=== PATIENT | female | born 1985 | race Caucasian/White ===

== ENCOUNTER → 2016-08-14 | Outpatient (CLI) | payer MEDICAID, OTHER ==
[~2016-08-14] VITALS: Ht 157.5 cm; Wt 58.1 kg
[~2016-08-14] MED LIST: CYAN10005 PO; ERGO500012 PO; FAMO10VI IV; FERR325T58 PO; GELATIN SPONGE SIZE 12-7MM SPONGE. ONE; HEPARIN PF 500 UNIT/5 ML DISP.SYRIN. IV ONE; HYDROmorphone 2 MG/ML VIAL IV PRN; IOHEXOL 300 MG/ML 50 ML VIAL. ONE; IV RINGERS,LACTATED 1000ML 1,000 ML IV SCH; KETAMINE HCL 500 MG/10 ML VIAL. ONE; LAMO100T5 PO; LIDOCAINE 1% 1 ML SYRINGE. ID PRN; LIDOCAINE 1%/EPI 1:100,000 20 ML VIAL. INJ ONE; LIDOCAINE 1%/EPI 1:100,000 20 ML VIAL. ONE; LOPE2TAB27 PO; MIDAZOLAM HCL/PF 2 MG/2 ML VIAL. ONE; MORPHINE SULFATE 2 MG/ML DISP.SYRIN. IV PRN; ONDANSETRON PF 4 MG/2 ML VIAL. IV PRN; OXYC30TA21 PO; POTA20TA12 PO; PROCHLORPERAZINE 10 MG/2 ML VIAL. IV PRN; PROPOFOL 100 ML IV ONE; fentaNYL PF VIAL 100 MCG/2 ML VIAL ONE
[2016-08-14 11:27] LABS: INR 1.2 (0.8-1.1); PROTHROMBIN TIME PATIENT 14.3 SEC (11.7-14.0)
[2016-08-14 11:32] VITALS: BP 138/93
[2016-08-14 11:34] LABS: BASO % 0 % (0-3); EOS % 2 % (0-3); HEMATOCRIT 37.2 % (36.0-47.0); HEMOGLOBIN 12.5 g/dL (12.0-15.5); LYMPH # 2.3 x10^3/uL (1.0-4.8); LYMPH % 30 % (24-48); MEAN CORPUSCULAR HEMOGLOBIN 31 pg (25-35); MEAN CORPUSCULAR HGB CONC 34 g/dL (31-37); MEAN CORPUSCULAR VOLUME 92 fL (79-100); MONO % 9 % (0-9); NEUT % 59 % (31-73); RED BLOOD COUNT 4.04 x10^6/uL (3.50-5.40); RED CELL DISTRIBUTION WIDTH 13.6 % (11.5-14.5); WHITE BLOOD COUNT 7.7 x10^3/uL (4.0-11.0)
[2016-08-14 11:46] LABS: PLATELET COUNT 124 x10^3/uL (140-400)
--- NOTE | 2016-08-14 13:23 | PDOC1 ---
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 Her indwelling 6F Slim Power Port (placed August of last year) is no longer functioning. Port replacement has been requested. Since she has gained weight, placement of a standard 8F Power Port will be performed. Past Medical History Past Medical History See extensive Nursing Pre Procedure PMH Past Surgical History Past Surgical History See Nursing Pre Procedure PSH. Current Medications Current Medications Current Medications Iohexol (Omnipaque 300 Mg/ml) 50 ml STK-MED ONCE .ROUTE ; Start 08/14/16 at 10:05 ; Stop 08/14/16 at 10:06; Status DC Ondansetron HCl (Zofran) 4 mg PRN Q6HRS PRN IV NAUSEA/VOMITING; Start 08/14/16 at 10:45; Stop 08/15/16 at 10:44 Morphine Sulfate 1 mg PRN Q10MIN PRN IV SEVERE PAIN; Start 08/14/16 at 10:45; Stop 08/15/16 at 10:44 Ringer's Solution 1,000 ml @ 0 mls/hr Q0M IV ; Start 08/14/16 at 10:37; Stop 08/14/16 at 22:36 Lidocaine HCl 2 ml PRN 1X PRN ID PRIOR TO IV START; Start 08/14/16 at 10:45; Stop 08/15/16 at 10:44 Hydromorphone HCl (Dilaudid) 0.5 mg PRN Q10MIN PRN IV SEV PAIN, Second choice; Start 08/14/16 at 10:45; Stop 08/15/16 at 10:44 Prochlorperazine Edisylate (Compazine) 5 mg PACU PRN PRN IV NAUSEA, MRX1; Start 08/14/16 at 10:45; Stop 08/15/16 at 10:44 Lidocaine/ Epinephrine (Xylocaine 1%-Epi 1:100,000) 20 ml STK-MED ONCE .ROUTE ; Start 08/14/16 at 11:18; Stop 08/14/16 at 11:19; Status DC Heparin Sodium/ Sodium Chloride 500 ml @ As Directed STK-MED ONCE .ROUTE ; Start 08/14/16 at 11:18; Stop 08/14/16 at 11:19; Status DC Heparin Sodium (Porcine) (Hep Lock Adult) 500 unit STK-MED ONCE IV ; Start at 11:20; Stop 08/14/16 at 11:21; Status DC Heparin Sodium/ Sodium Chloride 1,000 unit 1X ONCE IART ; Start 08/14/16 at 12: 30; Stop 08/14/16 at 12:31; Status DC Lidocaine/ Epinephrine (Xylocaine 1%-Epi 1:100,000) 20 ml 1X ONCE INJ ; Start 08/14/16 at 12:30; Stop 08/14/16 at 12:31; Status DC Heparin Sodium (Porcine) (Hep Lock Adult) 500 unit 1X ONCE IV ; Start 08/14/16 at 12:30; Stop 08/14/16 at 12:31; Status DC Cefazolin Sodium 50 ml @ 100 mls/hr 1X ONCE IV ; Start 08/14/16 at 12:30; Stop 08/14/16 at 12:59; Status DC Midazolam HCl (Versed) 2 mg STK-MED ONCE .ROUTE ; Start 08/14/16 at 13:09; Stop 08/14/16 at 13:10; Status DC Fentanyl Citrate (Fentanyl 2ml Vial) 100 mcg STK-MED ONCE .ROUTE ; Start at 13:09; Stop 08/14/16 at 13:10; Status DC Ketamine HCl 500 mg STK-MED ONCE .ROUTE ; Start 08/14/16 at 13:09; Stop 08/14/16 at 13:10; Status DC Active Scripts Active Reported Lamictal (Lamotrigine) 100 Mg Tablet 1 Tab PO DAILY Famotidine 10 Mg/1 Ml Vial 4 Mg IV DAILY Loperamide (Loperamide Hcl) 2 Mg Tablet 4 Mg PO TID PRN PRN Roxicodone (Oxycodone Hcl) 30 Mg Tablet 15 Mg PO Q6HRS Allergies Allergies: Coded Allergies: adhesive (Verified Allergy, Intermediate, Rash, 01/27/14) amphetamine (Verified Allergy, Intermediate, hallucinations, 01/27/14) dextroamphetamine (Verified Allergy, Intermediate, hallucinations, ) lorazepam (Verified Allergy, Intermediate, hallucinations, 01/27/14) meperidine (Verified Allergy, Intermediate, "violent rages", 01/27/14) vancomycin (Verified Allergy, Intermediate, "raynauds", 01/27/14) Physical Exam Vital Signs Vital Signs Date Time Temp Pulse Resp B/P (MAP) Pulse Ox O2 Delivery O2 Flow Rate FiO2 08/14/16 11:32 98.6 76 16 138/93 (108) 96 98.6 Lungs: Clear to auscultation Heart: Regular rate Psych/Mental Status: Mental status NL Other Rt IJ Slim Power Port is in place---no evidence of pocket or tunnel infection. 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 Problems: Plan Plan Image guided replacement of rt IJ 6F Slim Power Port with larger 8F left IJ Power Port-----with MAC by anesthesia ADRIENNE ROQUE MD Aug 14, 2016 13:23
--- NOTE | 2016-08-14 15:04 | PDOC ---
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 Her indwelling right IJ Slim Power Port is nonfunctioning. Post-Procedure Diagnosis Post-Procedure Diagnosis Same Procedure Performed Procedure Performed Sono/fluoro guided left IJ tunneled Power Port insertion. Removal of right IJ tunneled Slim Power Port. Type of Anesthesia Type of Anesthesia MAC by anesthesia Estimated Blood Loss EBL: Minimal Specimens Specimans Right IJ 6F tunneled Slim Power Port---removed and discarded Drain/Tubes Drains/Tubes Left IJ 8F tunneled Power Port Condition of Patient Condition of Patient Hemodynamically stable. No apparent complication. Disposition Disposition From IR to PACU in stable condition. Discharge home from PACU post recovery, if no problems. F/U with PCP. OK to use new left IJ Power Port for blood draws and infusions, including TPN. Full report to follow. ADRIENNE ROQUE MD Aug 14, 2016 15:04
[2016-08-14] MEDS: fentaNYL PF VIAL 100 MCG/2 ML VIAL IV PRN ×2 (15:30→15:39)
[2016-08-14 16:05] VITALS: BP 124/74
--- NOTE | 2016-08-14 16:37 | RAD ---
Ultrasound and fluoroscopy guided left IJ power port insertion Removal of right IJ slim power port Indication: 31-year-old female with TPN dependent short-bowel syndrome. Her indwelling right IJ 6 Gren[place] Slim power port is nonfunctioning. Replacement of the slim power port with a larger 8 [place] standard power port has been requested. Fluoroscopy time: 1.3 minutes Kerma-area product: 6 Gycm2 Anesthesia: Mac anesthesia was provided by the department of anesthesiology. Antibiotic: A single dose of Ancef was administered within 1 hour of the procedure start time. Consent: The procedure was explained in its entirety to the patient and/or the patient's designated insurance service representative by a member of the treatment team. This included a discussion of risks and benefits and commonly accepted alternatives to the procedure, as well as expected consequences of no treatment at all. Discussion of risks included, but was not limited to, those that are most frequent and those that are rare, but possibly severe or life-threatening, as well as the possibility of unforeseen complications. Sterility: All elements of maximal sterile barrier technique, hand hygiene, skin preparation, and, if ultrasound was used, sterile ultrasound technique were followed. Procedure: Informed consent for insertion of a left IJ 8 Gren[place] tunneled power port and removal of her indwelling, nonfunctioning right IJ 6 [place] Slim power port was obtained from the patient. She was placed supine on the angiography table. 1 g Ancef was given IV, prophylactically. Mac anesthesia was provided by the department of anesthesiology. Power Port insertion : Preliminary ultrasound examination performed over left neck revealed wide patency of left internal jugular vein. This was documented with a single hard copy ultrasound image. Left neck was then prepped and draped in the usual sterile fashion, utilizing all elements of maximal sterile barrier technique, as described above. Using aseptic technique and local anesthesia, a small skin incision was made lateral to left internal jugular vein, just above clavicle. Using aseptic technique, local anesthesia, direct sterile ultrasound guidance, and the micropuncture system, successful percutaneous entry was achieved into left internal jugular vein. The left IJ venostomy tract was then dilated and the 8 [place] catheter from a Bard power port system was easily advanced centrally through an 8.5 Grenadian peel-away sheath, and was positioned with this tip at the level of upper-mid right atrium utilizing fluoroscopic guidance. A skin site suitable for placement of the power port body was then selected and marked along upper anterior aspect of left chest, overlying anterior aspect of left second rib. Using aseptic technique and local anesthesia, a horizontally oriented skin incision was made in this location. A subcutaneous chest wall pocket was then created and was packed with heparinized saline soaked gauze. A subcutaneous tunnel was then fashioned between the chest wall pocket and the initial supraclavicular incision. The 8 [place] power port catheter was then pulled through the subcutaneous tunnel from superior to inferior, utilizing the tunneling device provided. The catheter was then trimmed to an appropriate length and was connected to the power port body, which had been previously flushed with, and soaked in, heparinized saline solution. The gauze packing was then removed from the chest wall pocket, which was then copiously irrigated with heparinized saline solution. The power port body was then easily introduced into the chest wall pocket and was secured in place utilizing two 2-0 Vicryl sutures. The power port was then accessed utilizing a Swanson needle, was documented to flush and aspirate normally, and was packed with heparinized saline. The chest incision was then closed with 2-0 Vicryl, 4-0 Vicryl, Steri-Strips, and sterile dressing. The small supraclavicular incision was closed with 4-0 Vicryl, Steri-Strips, and sterile dressing. Patient tolerated the procedure well without apparent complication. Slim Power Port removal: Following successful, uneventful insertion of a left IJ tunneled power port, attention was turned to right side. Right chest was prepped and draped in the usual sterile fashion, utilizing all elements of maximal sterile barrier technique, as described above. Using aseptic technique and local anesthesia, a small horizontally oriented skin incision was made overlying body of the indwelling Slim Power Port. Subsequently, using a combination of blunt and sharp dissection, the Slim Power Port body was freed from surrounding soft tissues. The port body and catheter were then easily removed as a single unit, using gentle traction. The port body and catheter were then discarded. Hemostasis was achieved using manual pressure over right internal jugular vein. The chest incision was then closed with 2-0 Vicryl, 4-0 Vicryl, steri-strips, and sterile dressing. Patient tolerated procedure well without apparent complication. Satisfactory position of the left IJ power port and complete removal of the right IJ slim power port was confirmed with postprocedure fluoroscopic spot images. Impression: 1. Successful, uneventful ultrasound and fluoroscopy guided insertion of left IJ 8 Grenadian tunneled power port, as described. 2. Successful, uneventful removal of right IJ 6 Gren[place] Slim tunneled power port, as described.
== END | disposition home or self-care (01) ==
LOC: INTRAD 09:53
PROVIDERS: ATTEND Family Medicine
DX: T82.598A Other mechanical complication of other cardiac and vascular devices and implants, initial encounter (principal); I82.409 Acute embolism and thrombosis of unspecified deep veins of unspecified lower extremity; K21.9 Gastro-esophageal reflux disease without esophagitis; F41.9 Anxiety disorder, unspecified; F32.9 Major depressive disorder, single episode, unspecified; D64.9 Anemia, unspecified; Z87.01 Personal history of pneumonia (recurrent); Z90.49 Acquired absence of other specified parts of digestive tract; Z90.710 Acquired absence of both cervix and uterus; Z87.440 Personal history of urinary (tract) infections; Z86.14 Personal history of Methicillin resistant Staphylococcus aureus infection
CPT/HCPCS: 36415; 36561; 36590; 76937; 77001; 85027; 85610; C1751; C1892; J0690; J0780; J2250; J2704; J3010; J3490

== ENCOUNTER 2017-10-12 14:31 | Emergency (ER) | payer OTHER ==
[2017-10-12] MEDS: MORPHINE SULFATE 10 MG/ML VIAL. IM ×2 (15:13→16:01)
== END 2017-10-12 16:31 | disposition home or self-care (01) ==
LOC: ER 14:31
DX: S99.191A Other physeal fracture of right metatarsal, initial encounter for closed fracture (principal); G89.29 Other chronic pain; Z88.1 Allergy status to other antibiotic agents; Z88.6 Allergy status to analgesic agent; Z88.8 Allergy status to other drugs, medicaments and biological substances; W18.39XA Other fall on same level, initial encounter; Y93.01 Activity, walking, marching and hiking; Y99.8 Other external cause status; Y92.89 Other specified places as the place of occurrence of the external cause
CPT/HCPCS: 73610; 73630; 96372; 99284-25; J2270

== ENCOUNTER 2018-11-19 20:06 | Inpatient (IN) | payer OTHER ==
[~2018-11-19] VITALS: Ht 157.5 cm; Wt 50.2 kg
[~2018-11-19 20:06] MED LIST changes: +AMOX875T PO; +CYAN-25 PO; -CYAN10005 PO; -ERGO500012 PO; +ERGO500027 PO; -GELATIN SPONGE SIZE 12-7MM SPONGE. ONE; -HEPARIN PF 500 UNIT/5 ML DISP.SYRIN. IV ONE; -HYDROmorphone 2 MG/ML VIAL IV PRN; -IOHEXOL 300 MG/ML 50 ML VIAL. ONE; -IV RINGERS,LACTATED 1000ML 1,000 ML IV SCH; -KETAMINE HCL 500 MG/10 ML VIAL. ONE; -LIDOCAINE 1% 1 ML SYRINGE. ID PRN; -LIDOCAINE 1%/EPI 1:100,000 20 ML VIAL. INJ ONE; -LIDOCAINE 1%/EPI 1:100,000 20 ML VIAL. ONE; -MIDAZOLAM HCL/PF 2 MG/2 ML VIAL. ONE; -MORPHINE SULFATE 2 MG/ML DISP.SYRIN. IV PRN; -ONDANSETRON PF 4 MG/2 ML VIAL. IV PRN; -PROCHLORPERAZINE 10 MG/2 ML VIAL. IV PRN; -PROPOFOL 100 ML IV ONE; -fentaNYL PF VIAL 100 MCG/2 ML VIAL ONE
[2018-11-19] MEDS ORDERED: IV NORMAL SALINE 1000ML BAG 1,000 ML IV ONE ×2 (21:00)
[2018-11-19] MEDS ORDERED: IBUPROFEN 400 MG TABLET. PO ONE (21:30)
[2018-11-19] MEDS ORDERED: PIPERACILLIN/TAZOBACTAM 4.5 GM in IV NORMAL SALINE 100ML 100 ML IV ONE (21:30)
[2018-11-19 21:31] LABS: BASO # 0.1 x10^3/uL (0.0-0.2); BASO % 1 % (0-3); EOS # 0.1 x10^3/uL (0.0-0.7); EOS % 1 % (0-3); HEMATOCRIT 32.3 % (36.0-47.0); HEMOGLOBIN 11.2 g/dL (12.0-15.5); LYMPH % 13 % (24-48); MEAN CORPUSCULAR HEMOGLOBIN 31 pg (25-35); MEAN CORPUSCULAR HGB CONC 35 g/dL (31-37); MEAN CORPUSCULAR VOLUME 89 fL (79-100); MONO # 1.2 x10^3/uL (0.0-1.1); MONO % 8 % (0-9); NEUT # 11.7 x10^3/uL (1.8-7.7); NEUT % 77 % (31-73); PLATELET COUNT 224 x10^3/uL (140-400); RED BLOOD COUNT 3.64 x10^6/uL (3.50-5.40); RED CELL DISTRIBUTION WIDTH 14.3 % (11.5-14.5); WHITE BLOOD COUNT 15.1 x10^3/uL (4.0-11.0)
[2018-11-19 21:33] LABS: BILIRUBIN,URINE NEGATIVE (NEG); CLARITY,URINE CLEAR; COLOR,URINE YELLOW; NITRITE,URINE NEGATIVE (NEG); PROTEIN,URINE NEGATIVE (NEG-TRACE)
[2018-11-19 21:43] LABS: CALCIUM 8.9 mg/dL (8.5-10.1); CREATININE 0.7 mg/dL (0.6-1.0); GFR 96.4; POTASSIUM 4.2 mmol/L (3.5-5.1)
[2018-11-19 21:45] LABS: PROTHROMBIN TIME PATIENT 13.8 SEC (11.7-14.0)
[2018-11-19 21:47] LABS: BACTERIA,URINE FEW /HPF (0-FEW); RBC,URINE 0 /HPF (0-2)
[2018-11-19 21:48] LABS: SQUAMOUS EPITHELIAL CELL,UR OCC /LPF
[2018-11-19 21:49] LABS: ALBUMIN 3.4 g/dL (3.4-5.0); ALBUMIN/GLOBULIN RATIO 0.8 (1.0-1.7); MAGNESIUM 1.5 mg/dL (1.8-2.4); TOTAL BILIRUBIN 0.3 mg/dL (0.2-1.0); TOTAL PROTEIN 7.5 g/dL (6.4-8.2)
[2018-11-19] MEDS ORDERED: fentaNYL PF VIAL 100 MCG/2 ML VIAL ONE (21:53)
[2018-11-19] MEDS ORDERED: fentaNYL PF VIAL 100 MCG/2 ML VIAL IV ONE ×2 (22:00→22:45)
--- NOTE | 2018-11-19 22:26 | PHYS DOC ---
Past Medical History Past Medical History: Anemia, Cancer Additional Past Medical Histor: short bowel syndrome, malabsorption, chronic pain d/t radiation Past Surgical History: Appendectomy, Cholecystectomy, , Hysterectomy Additional Past Surgical Histo: bowel resections X 3, hernia repair, LEFT SC CENTRAL LINE Alcohol Use: Occasionally Drug Use: None Adult General Chief Complaint Chief Complaint: FEVER HPI HPI Patient is a 33 year old [f__sex] who presents with [] Review of Systems Review of Systems Constitutional: Denies fever or chills [] Eyes: Denies change in visual acuity, redness, or eye pain [] HENT: Denies nasal congestion or sore throat [] Respiratory: Denies cough or shortness of breath [] Cardiovascular: No additional information not addressed in HPI [] GI: Denies abdominal pain, nausea, vomiting, bloody stools or diarrhea [] : Denies dysuria or hematuria [] Musculoskeletal: Denies back pain or joint pain [] Integument: Denies rash or skin lesions [] Neurologic: Denies headache, focal weakness or sensory changes [] Endocrine: Denies polyuria or polydipsia [] All other systems were reviewed and found to be within normal limits, except as documented in this note. Current Medications Current Medications Current Medications Medications (Trade) Dose Ordered Sig/Caroline Start Time Stop Time Status Last Admin Dose Admin Fentanyl Citrate (Fentanyl 2ml Vial) 50 mcg 1X ONCE 11/19/18 22:30 11/19/18 22:31 UNV Ibuprofen (Motrin) 400 mg 1X ONCE 11/19/18 21:30 11/19/18 21:31 DC 11/19/18 21:56 400 MG Magnesium Sulfate 50 ml @ 25 mls/hr 1X ONCE 11/19/18 22:30 11/20/18 00:29 Piperacillin Sod/ Tazobactam Sod 4.5 gm/Sodium Chloride 100 ml @ 200 mls/hr 1X ONCE 11/19/18 21:30 11/19/18 21:59 DC 11/19/18 22:03 200 MLS/HR Sodium Chloride 1,000 ml @ 1,000 mls/hr 1X ONCE 11/19/18 21:00 11/19/18 21:59 DC Allergies Allergies Allergies Coded Allergies Type Severity Reaction Last Updated Verified adhesive Allergy Intermediate Rash 01/27/14 Yes amphetamine Allergy Intermediate hallucinations 01/27/14 Yes dextroamphetamine Allergy Intermediate hallucinations 01/27/14 Yes lorazepam Allergy Intermediate hallucinations 01/27/14 Yes meperidine Allergy Intermediate "violent rages" 01/27/14 Yes vancomycin Allergy Intermediate "raynauds" 01/27/14 Yes Physical Exam Physical Exam Constitutional: Well developed, well nourished, no acute distress, non-toxic appearance. [] HENT: Normocephalic, atraumatic, bilateral external ears normal, oropharynx moist, no oral exudates, nose normal. [] Eyes: PERRLA, EOMI, conjunctiva normal, no discharge. [] Neck: Normal range of motion, no tenderness, supple, no stridor. [] Cardiovascular:Heart rate regular rhythm, no murmur [] Lungs & Thorax: Bilateral breath sounds clear to auscultation [] Abdomen: Bowel sounds normal, soft, no tenderness, no masses, no pulsatile yusra s. [] Skin: Warm, dry, no erythema, no rash. [] Back: No tenderness, no CVA tenderness. [] Extremities: No tenderness, no cyanosis, no clubbing, ROM intact, no edema. [] Neurologic: Alert and oriented X 3, normal motor function, normal sensory function, no focal deficits noted. [] Psychologic: Affect normal, judgement normal, mood normal. [] Current Patient Data Vital Signs Vital Signs Date Time Temp Pulse Resp B/P (MAP) Pulse Ox O2 Delivery O2 Flow Rate FiO2 11/19/18 22:03 20 97 Room Air 11/19/18 20:06 102.0 109 145/78 (100) 102.0 Lab Values Laboratory Tests Test 11/19/18 21:05 11/19/18 21:23 White Blood Count 15.1 x10^3/uL (4.0-11.0) H Red Blood Count 3.64 x10^6/uL (3.50-5.40) Hemoglobin 11.2 g/dL (12.0-15.5) L Hematocrit 32.3 % (36.0-47.0) L Mean Corpuscular Volume 89 fL (79-100) Mean Corpuscular Hemoglobin 31 pg (25-35) Mean Corpuscular Hemoglobin Concent 35 g/dL (31-37) Red Cell Distribution Width 14.3 % (11.5-14.5) Platelet Count 224 x10^3/uL (140-400) Neutrophils (%) (Auto) 77 % (31-73) H Lymphocytes (%) (Auto) 13 % (24-48) L Monocytes (%) (Auto) 8 % (0-9) Eosinophils (%) (Auto) 1 % (0-3) Basophils (%) (Auto) 1 % (0-3) Neutrophils # (Auto) 11.7 x10^3/uL (1.8-7.7) H Lymphocytes # (Auto) 2.0 x10^3/uL (1.0-4.8) Monocytes # (Auto) 1.2 x10^3/uL (0.0-1.1) H Eosinophils # (Auto) 0.1 x10^3/uL (0.0-0.7) Basophils # (Auto) 0.1 x10^3/uL (0.0-0.2) Prothrombin Time 13.8 SEC (11.7-14.0) Prothrombin Time INR 1.1 (0.8-1.1) Activated Partial Thromboplast Time 31 SEC (24-38) Sodium Level 140 mmol/L (136-145) Potassium Level 4.2 mmol/L (3.5-5.1) Chloride Level 101 mmol/L (98-107) Carbon Dioxide Level 29 mmol/L (21-32) Anion Gap 10 (6-14) Blood Urea Nitrogen 16 mg/dL (7-20) Creatinine 0.7 mg/dL (0.6-1.0) Estimated GFR (Cockcroft-Gault) 96.4 BUN/Creatinine Ratio 23 (6-20) H Glucose Level 81 mg/dL (70-99) Lactic Acid Level 1.1 mmol/L (0.4-2.0) Calcium Level 8.9 mg/dL (8.5-10.1) Magnesium Level 1.5 mg/dL (1.8-2.4) L Total Bilirubin 0.3 mg/dL (0.2-1.0) Aspartate Amino Transferase (AST) 30 U/L (15-37) Alanine Aminotransferase (ALT) 36 U/L (14-59) Alkaline Phosphatase 150 U/L (46-116) H Total Protein 7.5 g/dL (6.4-8.2) Albumin 3.4 g/dL (3.4-5.0) Albumin/Globulin Ratio 0.8 (1.0-1.7) L Urine Collection Type Void Urine Color Yellow Urine Clarity Clear Urine pH 6.0 Urine Specific [place] 1.025 Urine Protein Negative mg/dL (NEG-TRACE) Urine Glucose (UA) Negative mg/dL (NEG) Urine Ketones (Stick) Negative mg/dL (NEG) Urine Blood Negative (NEG) Urine Nitrite Negative (NEG) Urine Bilirubin Negative (NEG) Urine Urobilinogen Dipstick 1.0 mg/dL (0.2 mg/dL) Urine Leukocyte Esterase Negative (NEG) Urine RBC 0 /HPF (0-2) Urine WBC 1-4 /HPF (0-4) Urine Squamous Epithelial Cells Occ /LPF Urine Bacteria Few /HPF (0-FEW) Urine Mucus Mod /LPF Laboratory Tests 11/19/18 21:05 Laboratory Tests 11/19/18 21:05 EKG EKG [] Radiology/Procedures Radiology/Procedures [] Course & Med Decision Making Course & Med Decision Making Pertinent Labs and Imaging studies reviewed. (See chart for details) [] Dragon Disclaimer Dragon Disclaimer This electronic medical record was generated, in whole or in part, using a voice recognition dictation system. Departure Departure Impression: Primary Impression: Sepsis Additional Impression: Infection of venous access port Disposition: ADMITTED INPATIENT Admitting Physician: AMRIT Abrams) Condition: GUARDED Referrals: MILLIE VILLAREAL MD (PCP) Critical Care Time Critical care time was 30 minutes which includes time at bedside, spent in discussion of patient's care with specialists and/or family members, with interpretation of laboratory and/or radiological studies and is exclusive of procedures. Problem Qualifiers Primary Impression: Sepsis Sepsis type: sepsis due to unspecified organism Sepsis acute organ dysfunction status: without acute organ dysfunction Qualified Codes: A41.9 - Sepsis, unspecified organism Additional Impression: Infection of venous access port Encounter type: initial encounter Qualified Codes: T80.219A - Unspecified infection due to central venous catheter, initial encounter GYPSY ANTHONY DO Nov 19, 2018 22:26
[2018-11-19] MEDS ORDERED: MAGNESIUM SULFATE 2GM 50 ML IV ONE (22:30)
[2018-11-19] MEDS ORDERED: ONDANSETRON PF 4 MG/2 ML VIAL. IV PRN (22:45)
[2018-11-19 23:00] VITALS: BP 125/75
[2018-11-20] MEDS: fentaNYL PF VIAL 100 MCG/2 ML VIAL IV PRN ×8 (00:24→22:09)
[2018-11-20 03:21] VITALS: BP 115/63
[2018-11-20] MEDS ORDERED: FLUO20TA11 PO (06:25)
[2018-11-20] MEDS ORDERED: OLAN5TAB9 PO (06:25)
[2018-11-20] MEDS ORDERED: OXYC15TA PO (06:25)
[2018-11-20] MEDS ORDERED: FLUO10CA13 PO (06:28)
[2018-11-20] MEDS ORDERED: NICO1PAT21 TD (06:28)
[2018-11-20] MEDS ORDERED: FAMO40TA4 PO (06:28)
[2018-11-20 07:10] VITALS: BP 129/78
[2018-11-20] MEDS: HYDROmorphone 2 MG/ML VIAL IVP PRN ×3 (09:15→19:54)
[2018-11-20] MEDS ORDERED: NICOTINE 21MG PATCH. TD PRN (09:30)
[2018-11-20] MEDS ORDERED: PIP/TAZO PER PHARMACY MC PRN (09:30)
[2018-11-20] MEDS ORDERED: diphenhydrAMINE HCL 25 MG CAPSULE PO PRN (09:45)
--- NOTE | 2018-11-20 09:48 | PDOC1 ---
History and Physical Date of Admission Date of Admission DATE: 11/20/18 TIME: 09:43 Identification/Chief Complaint Chief Complaint fever Source Source: Chart review, Patient History of Present Illness History of Present Illness Isabell has history of uterine cancer s/p surg, then chemo then radiation and has ongoing problems from this. Has short-gut syndrome, ongoing pain and diarrhea and malnutrition, She gets TPN infusion through a port 2x per week. With her earlier infusion, she has a fever this week, maybe 101, she wasnt sure, but then continued infuision, then fever , 103, then during infusion last night, fever again, 101, and she stopped the TPN and brought it with her to the ER. she has exacerbation of pain, which she describes as common for her when she gets an infection. 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, with Faye syndrome, but is open to trying at a very slow rate if it might help her infection, she is still able to eat, and her stools are unchanged from her normal diarrhea Past Medical History Cardiovascular: No pertinent hx Pulmonary: No pertinent hx GI: Other (cancer, post surg) Psych: Bipolar Past Surgical History Past Surgical History: Hysterectomy, Colectomy, Colon Resection Family History Family History: Asthma Social History Smoke: 1 pack per day ALCOHOL: occassional Drugs: None Current Problem List Problem List Problems Medical Problems: (1) Infection of venous access port Status: Acute (2) Sepsis Status: Acute Current Medications Current Medications Current Medications Sodium Chloride 1,000 ml @ 1,000 mls/hr 1X ONCE IV Last administered on 11/19/18at 21:56; Start 11/19/18 at 21:00; Stop 11/19/18 at 21:59; Status DC Piperacillin Sod/ Tazobactam Sod 4.5 gm/Sodium Chloride 100 ml @ 200 mls/hr 1X ONCE IV Last administered on 11/19/18at 22:03; Start 11/19/18 at 21:30; Stop 11/19/18 at 21:59; Status DC Sodium Chloride 1,000 ml @ 1,000 mls/hr 1X ONCE IV Last administered on 11/19/18at 22:36; Start 11/19/18 at 21:00; Stop 11/19/18 at 21:59; Status DC Ibuprofen (Motrin) 400 mg 1X ONCE PO Last administered on 11/19/18at 21:56; Start 11/19/18 at 21:30; Stop 11/19/18 at 21:31; Status DC Fentanyl Citrate (Fentanyl 2ml Vial) 50 mcg 1X ONCE IV Last administered on 11/19/18at 22:03; Start 11/19/18 at 22:00; Stop 11/19/18 at 22:01; Status DC Fentanyl Citrate (Fentanyl 2ml Vial) 100 mcg STK-MED ONCE .ROUTE ; Start 11/19/18 at 21:53; Stop 11/19/18 at 21:53; Status DC Magnesium Sulfate 50 ml @ 25 mls/hr 1X ONCE IV Last administered on 11/19/18at 23:00; Start 11/19/18 at 22:30; Stop 11/20/18 at 00:29; Status DC Fentanyl Citrate (Fentanyl 2ml Vial) 50 mcg 1X ONCE IV Last administered on 11/19/18at 23:00; Start 11/19/18 at 22:45; Stop 11/19/18 at 22:46; Status DC Ondansetron HCl (Zofran) 4 mg PRN Q8HRS PRN IV NAUSEA/VOMITING Last administered on 11/19/18at 23:00; Start 11/19/18 at 22:45; Stop 11/20/18 at 22:44 Fentanyl Citrate (Fentanyl 2ml Vial) 75 mcg PRN Q2HR PRN IV PAIN Last administered on 11/20/18at 09:00; Start 11/19/18 at 22:45 Hydromorphone HCl (Dilaudid) 1 mg PRN Q4HRS PRN IVP PAIN Last administered on 11/20/18at 09:16; Start 11/20/18 at 09:15 Fluoxetine HCl (PROzac) 5 mg DAILY PEG ; Start 11/21/18 at 09:00 Lamotrigine (LaMICtal) 100 mg DAILY PO ; Start 11/21/18 at 09:00 Nicotine (Nicoderm Cq 21mg) 1 patch PRN DAILY PRN TD SMOKING CESSATION; Start 11/20/18 at 09:30 Olanzapine (ZyPREXA) 5 mg DAILY PO ; Start 11/21/18 at 09:00 Famotidine (Pepcid) 40 mg QHS PO ; Start 11/20/18 at 21:00 Loperamide HCl (Imodium) 4 mg PRN QID PRN PO DIARRHEA; Start 11/20/18 at 09:45 Piperacillin Sod/ Tazobactam Sod (Zosyn Per Pharmacy) 1 each PRN DAILY PRN MC SEE COMMENTS; Start 11/20/18 at 09:30 Piperacillin Sod/ Tazobactam Sod 4.5 gm/Sodium Chloride 100 ml @ 200 mls/hr Q6HRS IV ; Start 11/20/18 at 10:00 Zolpidem Tartrate (Ambien) 5 mg HS PO ; Start 11/20/18 at 21:00; Status UNV Diphenhydramine HCl (Benadryl) 25 mg PRN Q6HRS PRN PO ITCHING; Start 11/20/18 at 09:45; Status UNV Oxycodone HCl (Roxicodone) 15 mg PRN Q4HRS PRN PO PAIN; Start 11/20/18 at 09:45; Status UNV Active Scripts Active Reported NICODERM CQ 21mg (Nicotine) 1 Each Patch.td24 1 Patch TD PRN DAILY PRN Prozac (Fluoxetine Hcl) 10 Mg Capsule 5 Mg PO DAILY Famotidine 40 Mg Tablet 40 Mg PO HS Fluoxetine Hcl 20 Mg Tablet 20 Mg PO DAILY Olanzapine 5 Mg Tablet 5 Mg PO DAILY Oxycodone Hcl Immed.release (Oxycodone Hcl) 15 Mg Tablet 15 Mg PO QID Lamictal (Lamotrigine) 100 Mg Tablet 1 Tab PO DAILY Loperamide (Loperamide Hcl) 2 Mg Tablet 4 Mg PO PRN QID PRN Allergies Allergies: Coded Allergies: adhesive (Verified Allergy, Intermediate, Rash, 01/27/14) amphetamine (Verified Allergy, Intermediate, hallucinations, 01/27/14) dextroamphetamine (Verified Allergy, Intermediate, hallucinations, 01/27/14) lorazepam (Verified Allergy, Intermediate, hallucinations, 01/27/14) meperidine (Verified Allergy, Intermediate, "violent rages", 01/27/14) vancomycin (Verified Allergy, Intermediate, "raynauds", 01/27/14) ROS General: YES: Chills, Night Sweats, Fatigue, Other; No: Malaise, Appetite PSYCHOLOGICAL ROS: YES: Concentration difficultie, Irritablity, Sleep disturbances; No: Anxiety, Behavioral Disorder, Decreased libido, Depression, Disorientation, Hallucinations, Hostility, Memory difficulties, Mood Swings, Obsessive thoughts, Other Eyes: No Blurry vision, No Decreased vision, No Double vision, No Dry eyes, No Excessive tearing, No Eye Pain, No Itchy Eyes, No Loss of vision, No Photo phobia, No Scotomata, No Uses contacts, No Uses glasses, No Other HEENT: YES: Heacaches Respiratory: No: Cough, Hemoptysis, Orthopnea, Pleuritic Pain, Shortness of breath, SOB with excertion, Sputum Changes, Stridor, Tachypnea, Wheezing, Other Cardiovascular: No Chest Pain, No Palpitations, No Orthopnea, No Paroxysmal Noc. Dyspnea, No Edema, No Lt Headedness, No Other Gastrointestinal: No Nausea, No Vomiting, No Abdominal Pain, No Diarrhea, No Constipation, No Melena, No Hematochezia, No Other Genitourinary: No Dysuria, No Frequency, No Incontinence, No Hematuria, No Retention, No Discharge, No Urgency, No Pain, No Flank Pain, No Other, No , No , No , No , No , No , No Musculoskeletal: Yes Joint Pain, Yes Joint Stiffness, Yes Pain In: (back, legs) Neurological: Yes Weakness; No Behavorial Changes, No Bowel/Bladder ControlChng, No Confusion, No Dizziness, No Gait Disturbance, No Headaches, No Impaired Coord/balance, No Memory Loss, No Numbness/Tingling, No Seizures, No Speech Problems, No Tremors, No Other Skin: Yes Dry Skin; No Eczema, No Hair Changes, No Lumps, No Mole Changes, No Mottling, No Nail Changes, No Pruritus, No Rash, No Skin Lesion Changes, No Other, No Acne Physical Exam General: Alert, Oriented X3, mild distress HEENT: PERRLA, Mucous membr. moist/pink, Other (poor dentition) Heart: RRR, no gallops Extremities: No clubbing, No edema, Normal pulses Skin: No rashes Neuro: Normal speech, Sensation intact, Cranial nerves 3-12 NL Psych/Mental Status: Mental status NL, Mood NL Vitals Vitals Vital Signs Date Time Temp Pulse Resp B/P (MAP) Pulse Ox O2 Delivery O2 Flow Rate FiO2 11/20/18 09:33 98 Room Air 11/20/18 07:10 97.6 72 20 129/78 (95) 97.6 Labs Labs Laboratory Tests Test 11/19/18 21:05 11/19/18 21:23 11/20/18 00:45 White Blood Count 15.1 x10^3/uL (4.0-11.0) Red Blood Count 3.64 x10^6/uL (3.50-5.40) Hemoglobin 11.2 g/dL (12.0-15.5) Hematocrit 32.3 % (36.0-47.0) Mean Corpuscular Volume 89 fL (79-100) Mean Corpuscular Hemoglobin 31 pg (25-35) Mean Corpuscular Hemoglobin Concent 35 g/dL (31-37) Red Cell Distribution Width 14.3 % (11.5-14.5) Platelet Count 224 x10^3/uL (140-400) Neutrophils (%) (Auto) 77 % (31-73) Lymphocytes (%) (Auto) 13 % (24-48) Monocytes (%) (Auto) 8 % (0-9) Eosinophils (%) (Auto) 1 % (0-3) Basophils (%) (Auto) 1 % (0-3) Neutrophils # (Auto) 11.7 x10^3/uL (1.8-7.7) Lymphocytes # (Auto) 2.0 x10^3/uL (1.0-4.8) Monocytes # (Auto) 1.2 x10^3/uL (0.0-1.1) Eosinophils # (Auto) 0.1 x10^3/uL (0.0-0.7) Basophils # (Auto) 0.1 x10^3/uL (0.0-0.2) Prothrombin Time 13.8 SEC (11.7-14.0) Prothromb Time International Ratio 1.1 (0.8-1.1) Activated Partial Thromboplast Time 31 SEC (24-38) Sodium Level 140 mmol/L (136-145) Potassium Level 4.2 mmol/L (3.5-5.1) Chloride Level 101 mmol/L (98-107) Carbon Dioxide Level 29 mmol/L (21-32) Anion Gap 10 (6-14) Blood Urea Nitrogen 16 mg/dL (7-20) Creatinine 0.7 mg/dL (0.6-1.0) Estimated GFR (Cockcroft-Gault) 96.4 BUN/Creatinine Ratio 23 (6-20) Glucose Level 81 mg/dL (70-99) Lactic Acid Level 1.1 mmol/L (0.4-2.0) 0.9 mmol/L (0.4-2.0) Calcium Level 8.9 mg/dL (8.5-10.1) Magnesium Level 1.5 mg/dL (1.8-2.4) Total Bilirubin 0.3 mg/dL (0.2-1.0) Aspartate Amino Transf (AST/SGOT) 30 U/L (15-37) Alanine Aminotransferase (ALT/SGPT) 36 U/L (14-59) Alkaline Phosphatase 150 U/L (46-116) Total Protein 7.5 g/dL (6.4-8.2) Albumin 3.4 g/dL (3.4-5.0) Albumin/Globulin Ratio 0.8 (1.0-1.7) Urine Collection Type Void Urine Color Yellow Urine Clarity Clear Urine pH 6.0 Urine Specific [place] 1.025 Urine Protein Negative mg/dL (NEG-TRACE) Urine Glucose (UA) Negative mg/dL (NEG) Urine Ketones (Stick) Negative mg/dL (NEG) Urine Blood Negative (NEG) Urine Nitrite Negative (NEG) Urine Bilirubin Negative (NEG) Urine Urobilinogen Dipstick 1.0 mg/dL (0.2 mg/dL) Urine Leukocyte Esterase Negative (NEG) Urine RBC 0 /HPF (0-2) Urine WBC 1-4 /HPF (0-4) Urine Squamous Epithelial Cells Occ /LPF Urine Bacteria Few /HPF (0-FEW) Urine Mucus Mod /LPF Laboratory Tests Test 11/19/18 21:05 11/19/18 21:23 11/20/18 00:45 White Blood Count 15.1 x10^3/uL (4.0-11.0) Red Blood Count 3.64 x10^6/uL (3.50-5.40) Hemoglobin 11.2 g/dL (12.0-15.5) Hematocrit 32.3 % (36.0-47.0) Mean Corpuscular Volume 89 fL (79-100) Mean Corpuscular Hemoglobin 31 pg (25-35) Mean Corpuscular Hemoglobin Concent 35 g/dL (31-37) Red Cell Distribution Width 14.3 % (11.5-14.5) Platelet Count 224 x10^3/uL (140-400) Neutrophils (%) (Auto) 77 % (31-73) Lymphocytes (%) (Auto) 13 % (24-48) Monocytes (%) (Auto) 8 % (0-9) Eosinophils (%) (Auto) 1 % (0-3) Basophils (%) (Auto) 1 % (0-3) Neutrophils # (Auto) 11.7 x10^3/uL (1.8-7.7) Lymphocytes # (Auto) 2.0 x10^3/uL (1.0-4.8) Monocytes # (Auto) 1.2 x10^3/uL (0.0-1.1) Eosinophils # (Auto) 0.1 x10^3/uL (0.0-0.7) Basophils # (Auto) 0.1 x10^3/uL (0.0-0.2) Prothrombin Time 13.8 SEC (11.7-14.0) Prothromb Time International Ratio 1.1 (0.8-1.1) Activated Partial Thromboplast Time 31 SEC (24-38) Sodium Level 140 mmol/L (136-145) Potassium Level 4.2 mmol/L (3.5-5.1) Chloride Level 101 mmol/L (98-107) Carbon Dioxide Level 29 mmol/L (21-32) Anion Gap 10 (6-14) Blood Urea Nitrogen 16 mg/dL (7-20) Creatinine 0.7 mg/dL (0.6-1.0) Estimated GFR (Cockcroft-Gault) 96.4 BUN/Creatinine Ratio 23 (6-20) Glucose Level 81 mg/dL (70-99) Lactic Acid Level 1.1 mmol/L (0.4-2.0) 0.9 mmol/L (0.4-2.0) Calcium Level 8.9 mg/dL (8.5-10.1) Magnesium Level 1.5 mg/dL (1.8-2.4) Total Bilirubin 0.3 mg/dL (0.2-1.0) Aspartate Amino Transf (AST/SGOT) 30 U/L (15-37) Alanine Aminotransferase (ALT/SGPT) 36 U/L (14-59) Alkaline Phosphatase 150 U/L (46-116) Total Protein 7.5 g/dL (6.4-8.2) Albumin 3.4 g/dL (3.4-5.0) Albumin/Globulin Ratio 0.8 (1.0-1.7) Urine Collection Type Void Urine Color Yellow Urine Clarity Clear Urine pH 6.0 Urine Specific [place] 1.025 Urine Protein Negative mg/dL (NEG-TRACE) Urine Glucose (UA) Negative mg/dL (NEG) Urine Ketones (Stick) Negative mg/dL (NEG) Urine Blood Negative (NEG) Urine Nitrite Negative (NEG) Urine Bilirubin Negative (NEG) Urine Urobilinogen Dipstick 1.0 mg/dL (0.2 mg/dL) Urine Leukocyte Esterase Negative (NEG) Urine RBC 0 /HPF (0-2) Urine WBC 1-4 /HPF (0-4) Urine Squamous Epithelial Cells Occ /LPF Urine Bacteria Few /HPF (0-FEW) Urine Mucus Mod /LPF VTE Prophylaxis Ordered VTE Prophylaxis Devices: No VTE Pharmacological Prophylaxi: Yes Assessment/Plan Assessment/Plan fever sepsis possible port infection short gut syndrome, history of uterine cancer, s/p surg, chemo and radiation, now with post effect bipolar disorder, tobacco use disorder MARILYN CARRENO MD Nov 20, 2018 09:48
[2018-11-20] MEDS: ENOXAPARIN 40 MG/0.4 ML SYRINGE. SQ SCH ×2 (10:00→10:02)
[2018-11-20] MEDS ORDERED: PIPERACILLIN/TAZOBACTAM 4.5 GM in IV NORMAL SALINE 100ML 100 ML IV SCH (10:00)
--- NOTE | 2018-11-20 10:11 | PDOC ---
Infectious Disease Note Vital Sign Vital Signs Vital Signs Date Time Temp Pulse Resp B/P (MAP) Pulse Ox O2 Delivery O2 Flow Rate FiO2 11/20/18 09:33 98 Room Air 11/20/18 07:10 97.6 72 20 129/78 (95) 97.6 Labs Lab Laboratory Tests Test 11/19/18 21:05 11/19/18 21:23 11/20/18 00:45 White Blood Count 15.1 x10^3/uL (4.0-11.0) Red Blood Count 3.64 x10^6/uL (3.50-5.40) Hemoglobin 11.2 g/dL (12.0-15.5) Hematocrit 32.3 % (36.0-47.0) Mean Corpuscular Volume 89 fL (79-100) Mean Corpuscular Hemoglobin 31 pg (25-35) Mean Corpuscular Hemoglobin Concent 35 g/dL (31-37) Red Cell Distribution Width 14.3 % (11.5-14.5) Platelet Count 224 x10^3/uL (140-400) Neutrophils (%) (Auto) 77 % (31-73) Lymphocytes (%) (Auto) 13 % (24-48) Monocytes (%) (Auto) 8 % (0-9) Eosinophils (%) (Auto) 1 % (0-3) Basophils (%) (Auto) 1 % (0-3) Neutrophils # (Auto) 11.7 x10^3/uL (1.8-7.7) Lymphocytes # (Auto) 2.0 x10^3/uL (1.0-4.8) Monocytes # (Auto) 1.2 x10^3/uL (0.0-1.1) Eosinophils # (Auto) 0.1 x10^3/uL (0.0-0.7) Basophils # (Auto) 0.1 x10^3/uL (0.0-0.2) Prothrombin Time 13.8 SEC (11.7-14.0) Prothromb Time International Ratio 1.1 (0.8-1.1) Activated Partial Thromboplast Time 31 SEC (24-38) Sodium Level 140 mmol/L (136-145) Potassium Level 4.2 mmol/L (3.5-5.1) Chloride Level 101 mmol/L (98-107) Carbon Dioxide Level 29 mmol/L (21-32) Anion Gap 10 (6-14) Blood Urea Nitrogen 16 mg/dL (7-20) Creatinine 0.7 mg/dL (0.6-1.0) Estimated GFR (Cockcroft-Gault) 96.4 BUN/Creatinine Ratio 23 (6-20) Glucose Level 81 mg/dL (70-99) Lactic Acid Level 1.1 mmol/L (0.4-2.0) 0.9 mmol/L (0.4-2.0) Calcium Level 8.9 mg/dL (8.5-10.1) Magnesium Level 1.5 mg/dL (1.8-2.4) Total Bilirubin 0.3 mg/dL (0.2-1.0) Aspartate Amino Transf (AST/SGOT) 30 U/L (15-37) Alanine Aminotransferase (ALT/SGPT) 36 U/L (14-59) Alkaline Phosphatase 150 U/L (46-116) Total Protein 7.5 g/dL (6.4-8.2) Albumin 3.4 g/dL (3.4-5.0) Albumin/Globulin Ratio 0.8 (1.0-1.7) Urine Collection Type Void Urine Color Yellow Urine Clarity Clear Urine pH 6.0 Urine Specific [place] 1.025 Urine Protein Negative mg/dL (NEG-TRACE) Urine Glucose (UA) Negative mg/dL (NEG) Urine Ketones (Stick) Negative mg/dL (NEG) Urine Blood Negative (NEG) Urine Nitrite Negative (NEG) Urine Bilirubin Negative (NEG) Urine Urobilinogen Dipstick 1.0 mg/dL (0.2 mg/dL) Urine Leukocyte Esterase Negative (NEG) Urine RBC 0 /HPF (0-2) Urine WBC 1-4 /HPF (0-4) Urine Squamous Epithelial Cells Occ /LPF Urine Bacteria Few /HPF (0-FEW) Urine Mucus Mod /LPF Micro Microbiology 11/19/18 Blood Culture - Final, Complete Objective Assessment GPC bacteremia (1 of 4 bottles), 11/19. Possible infected power port - site looks clean Fever Leukocytosis Vanc allergy/intolerance w/ Faye's syndrome Short bowel syndrome, chronic TPN biweekly h/o MRSA h/o C. diff Plan Plan of Care Recommend dapto and micafungin per Dr. Burnett D/c Zosyn Await GPC ID/susceptibilities Port may need to be removed Monitor labs/VS D/w nursing Thank you [id number] 04/19 now - micafungin given TPN sometimes yeast ID initially as GPC Attending Co-Sign Attending Co-Sign The patient was seen and interviewed as well as examined at the bedside. The chart was reviewed. The case was discussed. Agree with the plan of care. ISIDRO SOLIS APRN Nov 20, 2018 10:11 CLAUDIA BURNETT MD Nov 20, 2018 15:20
[2018-11-20 11:05] VITALS: BP 127/70
[2018-11-20] MEDS: MICAFUNGIN 100 MG in IV DEXTROSE 5% 100ML 100 ML IV SCH (11:31)
--- NOTE | 2018-11-20 12:09 | CONS ---
DATE OF CONSULTATION: 11/20/2018 REFERRING PHYSICIAN: Dr. Olivas REASON FOR CONSULTATION: Questionable infected port. HISTORY OF PRESENT ILLNESS: The patient is a 33-year-old female with a history of small bowel syndrome, on chronic biweekly TPN infusions, who presented with complaints of fever and chills for the past 4 days. She has had a left PowerPort in place for the past 3 years. Her blood cultures have returned with Gram-positive cocci in clusters, 1 of 4 bottles. She has a previous history of multiple line infections. She denies redness, pain, swelling or discharge surrounding the Port-A-Cath site. PAST MEDICAL HISTORY: Uterine cancer, status post radiation. Short bowel syndrome, on chronic biweekly TPN infusions. Tinnitus, bipolar disorder, panic disorder, depression, anxiety, history of MRSA screen. A Clostridium difficile infection in 2009. PAST SURGICAL HISTORY: Total hysterectomy. section. Bowel resection. SOCIAL HISTORY: Lives at home. Smokes a pack of cigarettes a day. FAMILY HISTORY: Asthma. ALLERGIES: VANCOMYCIN WITH RED MAN SYNDROME. ADHESIVE AMPHETAMINE, DEXTROAMPHETAMINE, LORAZEPAM AND MEPERIDINE. MEDICATIONS: Zosyn. Other medications are available and have been reviewed on the MAY. REVIEW OF SYSTEMS: The patient says she usually has some nausea and vomiting and diarrhea off and on, that is not unusual. She was on amoxicillin last month for a tooth infection followed by fluconazole for a vaginal yeast infection. She denies shortness of air, cough or chest discomfort. Other review of systems are negative. PHYSICAL EXAMINATION: VITAL SIGNS: Temperature is 97.6, T-max 102.0, blood pressure 129/78, heart rate 72, respiratory rate 20, pulse oximetry is 98% on room air. GENERAL: The patient is sitting upright in bed, alert, no apparent distress. HEENT: Pupils equally round, normal conjunctivae. Oropharynx pink and moist. NECK: Supple. LUNGS: Clear to auscultation. HEART: S1, S2. ABDOMEN: Soft, nontender with bowel sounds present. EXTREMITIES: No gross edema or cyanosis. SKIN: Warm to touch. No signs of rash. NEUROLOGIC: Alert and oriented x 3. LIJ PowerPort site nontender, without redness or swelling. LABORATORY DATA: On admission, WBC 15.1, hemoglobin 11.2, platelets 224,000. Creatinine 0.7, BUN 16. Electrolytes are unremarkable. Lactic acid 0.9, total bilirubin 0.3, AST 30, ALT 36, albumin 3.4. Urinalysis unremarkable for infection. Blood cultures show gram-positive cocci in clusters, 1 of 4 bottles. IMPRESSION: 1. Gram-positive cocci bacteremia (1 of 4 bottles) from 11/19. 2. Possible infected at PowerPort. 3. Fever. 4. Leukocytosis. 5. 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 6. Short bowel syndrome, on chronic TPN. 7. History of methicillin-resistant Staphylococcus aureus. 8. History of Clostridium difficile. PLAN: Recommend daptomycin and micafungin. We will discontinue the Zosyn. Further antibiotic modifications pending identification and susceptibility of GPC. Monitor for antibiotic toxicity/side effects. PowerPort may need to be removed. Continue to monitor laboratory values and vital signs. Thank you, Dr. Olivas, for asking us to participate in this patient's care. Should you have further questions or concerns, please call. CLAUDIA ESCOBEDO MD DR: [id number]/bk JOB#: [id number] / [id number] LARY
[2018-11-20] MEDS: NORMAL SALINE IV SCH (13:15)
[2018-11-20] MEDS: DAPTOMYCIN IV SCH (13:15)
--- NOTE | 2018-11-20 14:35 | PDOC2 ---
CONSULT Date of Consult Date of Consult DATE: 11/20/18 TIME: 14:32 Reason for Consult Reason for Consult: possible line infection Referring Physician Referring Physician: Dr. Castellanos Identification/Chief Complaint Chief Complaint fevers chills Source Source: Chart review, Patient History of Present Illness Reason for Visit: 33 yo F with long standing TPN (although only a few times per week) secondary to short bowel, presents with F/c. Blood cultures positive. Admitted for evaluation and abx and feels better. Multiple previous lines, but no infection for a few years. Past Medical History Cardiovascular: No pertinent hx Pulmonary: No pertinent hx GI: Other (cancer, post surg) Psych: Bipolar Past Surgical History Past Surgical History: Hysterectomy, Colectomy, Colon Resection Family History Family History: Asthma Social History 1 pack per day ALCOHOL: occassional Drugs: None Current Problem List Problem List Problems Medical Problems: (1) Infection of venous access port Status: Acute (2) Sepsis Status: Acute Current Medications Current Medications Current Medications Sodium Chloride 1,000 ml @ 1,000 mls/hr 1X ONCE IV Last administered on 11/19/18at 21:56; Start 11/19/18 at 21:00; Stop 11/19/18 at 21:59; Status DC Piperacillin Sod/ Tazobactam Sod 4.5 gm/Sodium Chloride 100 ml @ 200 mls/hr 1X ONCE IV Last administered on 11/19/18at 22:03; Start 11/19/18 at 21:30; Stop 11/19/18 at 21:59; Status DC Sodium Chloride 1,000 ml @ 1,000 mls/hr 1X ONCE IV Last administered on 11/19/18at 22:36; Start 11/19/18 at 21:00; Stop 11/19/18 at 21:59; Status DC Ibuprofen (Motrin) 400 mg 1X ONCE PO Last administered on 11/19/18at 21:56; Start 11/19/18 at 21:30; Stop 11/19/18 at 21:31; Status DC Fentanyl Citrate (Fentanyl 2ml Vial) 50 mcg 1X ONCE IV Last administered on at 22:03; Start 11/19/18 at 22:00; Stop 11/19/18 at 22:01; Status DC Fentanyl Citrate (Fentanyl 2ml Vial) 100 mcg STK-MED ONCE .ROUTE ; Start 11/19/18 at 21:53; Stop 11/19/18 at 21:53; Status DC Magnesium Sulfate 50 ml @ 25 mls/hr 1X ONCE IV Last administered on 11/19/18at 23:00; Start 11/19/18 at 22:30; Stop 11/20/18 at 00:29; Status DC Fentanyl Citrate (Fentanyl 2ml Vial) 50 mcg 1X ONCE IV Last administered on 11/19/18at 23:00; Start 11/19/18 at 22:45; Stop 11/19/18 at 22:46; Status DC Ondansetron HCl (Zofran) 4 mg PRN Q8HRS PRN IV NAUSEA/VOMITING Last administered on 11/19/18at 23:00; Start 11/19/18 at 22:45; Stop 11/20/18 at 22:44 Fentanyl Citrate (Fentanyl 2ml Vial) 75 mcg PRN Q2HR PRN IV PAIN Last administered on 11/20/18at 13:15; Start 11/19/18 at 22:45 Hydromorphone HCl (Dilaudid) 1 mg PRN Q4HRS PRN IVP PAIN Last administered on 11/20/18at 14:22; Start 11/20/18 at 09:15 Fluoxetine HCl (PROzac) 5 mg DAILY PEG ; Start 11/21/18 at 09:00 Lamotrigine (LaMICtal) 100 mg DAILY PO ; Start 11/21/18 at 09:00 Nicotine (Nicoderm Cq 21mg) 1 patch PRN DAILY PRN TD SMOKING CESSATION Last administered on 11/20/18at 11:22; Start 11/20/18 at 09:30 Olanzapine (ZyPREXA) 5 mg DAILY PO ; Start 11/21/18 at 09:00 Famotidine (Pepcid) 40 mg QHS PO ; Start 11/20/18 at 21:00 Loperamide HCl (Imodium) 4 mg PRN QID PRN PO DIARRHEA; Start 11/20/18 at 09:45 Piperacillin Sod/ Tazobactam Sod (Zosyn Per Pharmacy) 1 each PRN DAILY PRN MC SEE COMMENTS; Start 11/20/18 at 09:30; Stop 11/20/18 at 11:10; Status DC Piperacillin Sod/ Tazobactam Sod 4.5 gm/Sodium Chloride 100 ml @ 200 mls/hr Q6HRS IV Last administered on 11/20/18at 10:03; Start 11/20/18 at 10:00; Stop 11/20/18 at 11:10; Status DC Zolpidem Tartrate (Ambien) 5 mg HS PO ; Start 11/20/18 at 21:00 Diphenhydramine HCl (Benadryl) 25 mg PRN Q6HRS PRN PO ITCHING; Start 11/20/18 at 09:45 Oxycodone HCl (Roxicodone) 15 mg PRN Q4HRS PRN PO PAIN; Start 11/20/18 at 09:45 Enoxaparin Sodium (Lovenox Per Pharmacy Prophylaxis Dosing) 1 each PRN DAILY PRN MC SEE COMMENTS; Start 11/20/18 at 09:45 Enoxaparin Sodium (Lovenox 40mg Syringe) 40 mg Q24H SQ ; Start 11/20/18 at 10:00 Daptomycin 300 mg/ Sodium Chloride 50 ml @ 100 mls/hr Q24H IV Last administered on 11/20/18at 13:15; Start 11/20/18 at 13:00 Micafungin Sodium 100 mg/Dextrose 100 ml @ 100 mls/hr Q24H IV Last admi nistered on 11/20/18at 11:33; Start 11/20/18 at 11:30 Active Scripts Active Reported NICODERM CQ 21mg (Nicotine) 1 Each Patch.td24 1 Patch TD PRN DAILY PRN Prozac (Fluoxetine Hcl) 10 Mg Capsule 5 Mg PO DAILY Famotidine 40 Mg Tablet 40 Mg PO HS Fluoxetine Hcl 20 Mg Tablet 20 Mg PO DAILY Olanzapine 5 Mg Tablet 5 Mg PO DAILY Oxycodone Hcl Immed.release (Oxycodone Hcl) 15 Mg Tablet 15 Mg PO QID Lamictal (Lamotrigine) 100 Mg Tablet 1 Tab PO DAILY Loperamide (Loperamide Hcl) 2 Mg Tablet 4 Mg PO PRN QID PRN Allergies Allergies: Coded Allergies: adhesive (Verified Allergy, Intermediate, Rash, 01/27/14) amphetamine (Verified Allergy, Intermediate, hallucinations, 01/27/14) dextroamphetamine (Verified Allergy, Intermediate, hallucinations, 01/27/14) lorazepam (Verified Allergy, Intermediate, hallucinations, 01/27/14) meperidine (Verified Allergy, Intermediate, "violent rages", 01/27/14) vancomycin (Verified Allergy, Intermediate, "raynauds", 01/27/14) ROS General: YES: Chills Physical Exam General: Alert, Oriented X3, Cooperative, No acute distress HEENT: Atraumatic, EOMI Lungs: Normal air movement, Other (port site is clean) Abdomen: Soft, No tenderness, Other (well healed incision) Extremities: No clubbing, No cyanosis Skin: No rashes, No breakdown Neuro: Normal speech, Sensation intact Psych/Mental Status: Mental status NL, Mood NL Vitals VITALS Vital Signs Date Time Temp Pulse Resp B/P (MAP) Pulse Ox O2 Delivery O2 Flow Rate FiO2 11/20/18 14:22 98 Room Air 11/20/18 11:05 98.4 72 18 127/70 (89) 98.4 Labs Labs Laboratory Tests Test 11/19/18 21:05 11/19/18 21:23 11/20/18 00:45 White Blood Count 15.1 x10^3/uL (4.0-11.0) Red Blood Count 3.64 x10^6/uL (3.50-5.40) Hemoglobin 11.2 g/dL (12.0-15.5) Hematocrit 32.3 % (36.0-47.0) Mean Corpuscular Volume 89 fL (79-100) Mean Corpuscular Hemoglobin 31 pg (25-35) Mean Corpuscular Hemoglobin Concent 35 g/dL (31-37) Red Cell Distribution Width 14.3 % (11.5-14.5) Platelet Count 224 x10^3/uL (140-400) Neutrophils (%) (Auto) 77 % (31-73) Lymphocytes (%) (Auto) 13 % (24-48) Monocytes (%) (Auto) 8 % (0-9) Eosinophils (%) (Auto) 1 % (0-3) Basophils (%) (Auto) 1 % (0-3) Neutrophils # (Auto) 11.7 x10^3/uL (1.8-7.7) Lymphocytes # (Auto) 2.0 x10^3/uL (1.0-4.8) Monocytes # (Auto) 1.2 x10^3/uL (0.0-1.1) Eosinophils # (Auto) 0.1 x10^3/uL (0.0-0.7) Basophils # (Auto) 0.1 x10^3/uL (0.0-0.2) Prothrombin Time 13.8 SEC (11.7-14.0) Prothromb Time International Ratio 1.1 (0.8-1.1) Activated Partial Thromboplast Time 31 SEC (24-38) Sodium Level 140 mmol/L (136-145) Potassium Level 4.2 mmol/L (3.5-5.1) Chloride Level 101 mmol/L (98-107) Carbon Dioxide Level 29 mmol/L (21-32) Anion Gap 10 (6-14) Blood Urea Nitrogen 16 mg/dL (7-20) Creatinine 0.7 mg/dL (0.6-1.0) Estimated GFR (Cockcroft-Gault) 96.4 BUN/Creatinine Ratio 23 (6-20) Glucose Level 81 mg/dL (70-99) Lactic Acid Level 1.1 mmol/L (0.4-2.0) 0.9 mmol/L (0.4-2.0) Calcium Level 8.9 mg/dL (8.5-10.1) Magnesium Level 1.5 mg/dL (1.8-2.4) Total Bilirubin 0.3 mg/dL (0.2-1.0) Aspartate Amino Transf (AST/SGOT) 30 U/L (15-37) Alanine Aminotransferase (ALT/SGPT) 36 U/L (14-59) Alkaline Phosphatase 150 U/L (46-116) Total Protein 7.5 g/dL (6.4-8.2) Albumin 3.4 g/dL (3.4-5.0) Albumin/Globulin Ratio 0.8 (1.0-1.7) Urine Collection Type Void Urine Color Yellow Urine Clarity Clear Urine pH 6.0 Urine Specific [place] 1.025 Urine Protein Negative mg/dL (NEG-TRACE) Urine Glucose (UA) Negative mg/dL (NEG) Urine Ketones (Stick) Negative mg/dL (NEG) Urine Blood Negative (NEG) Urine Nitrite Negative (NEG) Urine Bilirubin Negative (NEG) Urine Urobilinogen Dipstick 1.0 mg/dL (0.2 mg/dL) Urine Leukocyte Esterase Negative (NEG) Urine RBC 0 /HPF (0-2) Urine WBC 1-4 /HPF (0-4) Urine Squamous Epithelial Cells Occ /LPF Urine Bacteria Few /HPF (0-FEW) Urine Mucus Mod /LPF Laboratory Tests Test 11/19/18 21:05 11/19/18 21:23 11/20/18 00:45 White Blood Count 15.1 x10^3/uL (4.0-11.0) Red Blood Count 3.64 x10^6/uL (3.50-5.40) Hemoglobin 11.2 g/dL (12.0-15.5) Hematocrit 32.3 % (36.0-47.0) Mean Corpuscular Volume 89 fL (79-100) Mean Corpuscular Hemoglobin 31 pg (25-35) Mean Corpuscular Hemoglobin Concent 35 g/dL (31-37) Red Cell Distribution Width 14.3 % (11.5-14.5) Platelet Count 224 x10^3/uL (140-400) Neutrophils (%) (Auto) 77 % (31-73) Lymphocytes (%) (Auto) 13 % (24-48) Monocytes (%) (Auto) 8 % (0-9) Eosinophils (%) (Auto) 1 % (0-3) Basophils (%) (Auto) 1 % (0-3) Neutrophils # (Auto) 11.7 x10^3/uL (1.8-7.7) Lymphocytes # (Auto) 2.0 x10^3/uL (1.0-4.8) Monocytes # (Auto) 1.2 x10^3/uL (0.0-1.1) Eosinophils # (Auto) 0.1 x10^3/uL (0.0-0.7) Basophils # (Auto) 0.1 x10^3/uL (0.0-0.2) Prothrombin Time 13.8 SEC (11.7-14.0) Prothromb Time International Ratio 1.1 (0.8-1.1) Activated Partial Thromboplast Time 31 SEC (24-38) Sodium Level 140 mmol/L (136-145) Potassium Level 4.2 mmol/L (3.5-5.1) Chloride Level 101 mmol/L (98-107) Carbon Dioxide Level 29 mmol/L (21-32) Anion Gap 10 (6-14) Blood Urea Nitrogen 16 mg/dL (7-20) Creatinine 0.7 mg/dL (0.6-1.0) Estimated GFR (Cockcroft-Gault) 96.4 BUN/Creatinine Ratio 23 (6-20) Glucose Level 81 mg/dL (70-99) Lactic Acid Level 1.1 mmol/L (0.4-2.0) 0.9 mmol/L (0.4-2.0) Calcium Level 8.9 mg/dL (8.5-10.1) Magnesium Level 1.5 mg/dL (1.8-2.4) Total Bilirubin 0.3 mg/dL (0.2-1.0) Aspartate Amino Transf (AST/SGOT) 30 U/L (15-37) Alanine Aminotransferase (ALT/SGPT) 36 U/L (14-59) Alkaline Phosphatase 150 U/L (46-116) Total Protein 7.5 g/dL (6.4-8.2) Albumin 3.4 g/dL (3.4-5.0) Albumin/Globulin Ratio 0.8 (1.0-1.7) Urine Collection Type Void Urine Color Yellow Urine Clarity Clear Urine pH 6.0 Urine Specific [place] 1.025 Urine Protein Negative mg/dL (NEG-TRACE) Urine Glucose (UA) Negative mg/dL (NEG) Urine Ketones (Stick) Negative mg/dL (NEG) Urine Blood Negative (NEG) Urine Nitrite Negative (NEG) Urine Bilirubin Negative (NEG) Urine Urobilinogen Dipstick 1.0 mg/dL (0.2 mg/dL) Urine Leukocyte Esterase Negative (NEG) Urine RBC 0 /HPF (0-2) Urine WBC 1-4 /HPF (0-4) Urine Squamous Epithelial Cells Occ /LPF Urine Bacteria Few /HPF (0-FEW) Urine Mucus Mod /LPF Assessment/Plan Assessment/Plan possible line infection agree with abx per ID may be possible to save port, given multiple previous lines, but will monitor clinically Thanks for consult! JEWELS ENRIQUEZ MD Nov 20, 2018 14:35
[2018-11-20 15:10] VITALS: BP 123/79
[2018-11-20] MEDS: LOPERAMIDE 2 MG CAPSULE PO PRN ×2 (16:01→19:53)
[2018-11-20 19:05] VITALS: BP 138/85
[2018-11-20] MEDS: FAMOTIDINE 20 MG TABLET. PO SCH (19:53)
[2018-11-20] MEDS: ZOLPIDEM 5 MG TABLET. PO SCH (19:53)
[2018-11-20] MEDS ORDERED: lamoTRIgine 100 MG TABLET. ONE (21:03)
[2018-11-20] MEDS: lamoTRIgine 100 MG TABLET. PO SCH (21:07)
[2018-11-20 23:43] VITALS: BP 137/88
[2018-11-21] MEDS: HYDROmorphone 2 MG/ML VIAL IVP PRN ×4 (00:09→20:31)
[2018-11-21] MEDS: fentaNYL PF VIAL 100 MCG/2 ML VIAL IV PRN ×4 (03:03→22:57)
[2018-11-21] MEDS: LOPERAMIDE 2 MG CAPSULE PO PRN ×3 (03:03→20:37)
[2018-11-21 03:54] VITALS: BP 129/83
[2018-11-21 07:00] VITALS: BP 117/73
[2018-11-21] MEDS ORDERED: lamoTRIgine 100 MG TABLET. PO SCH (09:00)
--- NOTE | 2018-11-21 09:20 | PDOC ---
PROGRESS NOTES Chief Complaint Chief Complaint sepsis Bacteremia, 4/4 port infection short gut syndrome, malnutrition history of uterine cancer, s/p surg, chemo and radiation, now with post effect bipolar disorder, tobacco use disorder History of Present Illness History of Present Illness may need to have port removed, pending cx results, ID and gen surg following cont current pain better, still on IV pain meds, she reports PO meds not effective when she has diarrhea, and that is up, Immodium started last night as she would normally do Vitals Vitals Vital Signs Date Time Temp Pulse Resp B/P (MAP) Pulse Ox O2 Delivery O2 Flow Rate FiO2 11/21/18 07:00 98.7 80 18 117/73 (88) 98 Room Air 98.7 Physical Exam General: Alert, Oriented X3, Cooperative, No acute distress Abdomen: Soft, No tenderness, Other (well healed incision) Extremities: No clubbing, No cyanosis Skin: No rashes, No breakdown Assessment and Plan Assessmemt and Plan Problems Medical Problems: (1) Infection of venous access port Status: Acute (2) Sepsis Status: Acute Comment Review of Relevant I have reviewed the following items noni (where applicable) has been applied. Labs Laboratory Tests Test 11/19/18 21:05 11/19/18 21:23 11/20/18 00:45 White Blood Count 15.1 x10^3/uL (4.0-11.0) Red Blood Count 3.64 x10^6/uL (3.50-5.40) Hemoglobin 11.2 g/dL (12.0-15.5) Hematocrit 32.3 % (36.0-47.0) Mean Corpuscular Volume 89 fL (79-100) Mean Corpuscular Hemoglobin 31 pg (25-35) Mean Corpuscular Hemoglobin Concent 35 g/dL (31-37) Red Cell Distribution Width 14.3 % (11.5-14.5) Platelet Count 224 x10^3/uL (140-400) Neutrophils (%) (Auto) 77 % (31-73) Lymphocytes (%) (Auto) 13 % (24-48) Monocytes (%) (Auto) 8 % (0-9) Eosinophils (%) (Auto) 1 % (0-3) Basophils (%) (Auto) 1 % (0-3) Neutrophils # (Auto) 11.7 x10^3/uL (1.8-7.7) Lymphocytes # (Auto) 2.0 x10^3/uL (1.0-4.8) Monocytes # (Auto) 1.2 x10^3/uL (0.0-1.1) Eosinophils # (Auto) 0.1 x10^3/uL (0.0-0.7) Basophils # (Auto) 0.1 x10^3/uL (0.0-0.2) Prothrombin Time 13.8 SEC (11.7-14.0) Prothromb Time International Ratio 1.1 (0.8-1.1) Activated Partial Thromboplast Time 31 SEC (24-38) Sodium Level 140 mmol/L (136-145) Potassium Level 4.2 mmol/L (3.5-5.1) Chloride Level 101 mmol/L (98-107) Carbon Dioxide Level 29 mmol/L (21-32) Anion Gap 10 (6-14) Blood Urea Nitrogen 16 mg/dL (7-20) Creatinine 0.7 mg/dL (0.6-1.0) Estimated GFR (Cockcroft-Gault) 96.4 BUN/Creatinine Ratio 23 (6-20) Glucose Level 81 mg/dL (70-99) Lactic Acid Level 1.1 mmol/L (0.4-2.0) 0.9 mmol/L (0.4-2.0) Calcium Level 8.9 mg/dL (8.5-10.1) Magnesium Level 1.5 mg/dL (1.8-2.4) Total Bilirubin 0.3 mg/dL (0.2-1.0) Aspartate Amino Transf (AST/SGOT) 30 U/L (15-37) Alanine Aminotransferase (ALT/SGPT) 36 U/L (14-59) Alkaline Phosphatase 150 U/L (46-116) Total Protein 7.5 g/dL (6.4-8.2) Albumin 3.4 g/dL (3.4-5.0) Albumin/Globulin Ratio 0.8 (1.0-1.7) Urine Collection Type Void Urine Color Yellow Urine Clarity Clear Urine pH 6.0 Urine Specific [place] 1.025 Urine Protein Negative mg/dL (NEG-TRACE) Urine Glucose (UA) Negative mg/dL (NEG) Urine Ketones (Stick) Negative mg/dL (NEG) Urine Blood Negative (NEG) Urine Nitrite Negative (NEG) Urine Bilirubin Negative (NEG) Urine Urobilinogen Dipstick 1.0 mg/dL (0.2 mg/dL) Urine Leukocyte Esterase Negative (NEG) Urine RBC 0 /HPF (0-2) Urine WBC 1-4 /HPF (0-4) Urine Squamous Epithelial Cells Occ /LPF Urine Bacteria Few /HPF (0-FEW) Urine Mucus Mod /LPF Microbiology 11/19/18 Blood Culture - Final, Complete Medications Current Medications Sodium Chloride 1,000 ml @ 1,000 mls/hr 1X ONCE IV Last administered on 11/19/18at 21:56; Start 11/19/18 at 21:00; Stop 11/19/18 at 21:59; Status DC Piperacillin Sod/ Tazobactam Sod 4.5 gm/Sodium Chloride 100 ml @ 200 mls/hr 1X ONCE IV Last administered on 11/19/18at 22:03; Start 11/19/18 at 21:30; Stop 11/19/18 at 21:59; Status DC Sodium Chloride 1,000 ml @ 1,000 mls/hr 1X ONCE IV Last administered on 11/19/18at 22:36; Start 11/19/18 at 21:00; Stop 11/19/18 at 21:59; Status DC Ibuprofen (Motrin) 400 mg 1X ONCE PO Last administered on 11/19/18at 21:56; Start 11/19/18 at 21:30; Stop 11/19/18 at 21:31; Status DC Fentanyl Citrate (Fentanyl 2ml Vial) 50 mcg 1X ONCE IV Last administered on 11/19/18at 22:03; Start 11/19/18 at 22:00; Stop 11/19/18 at 22:01; Status DC Fentanyl Citrate (Fentanyl 2ml Vial) 100 mcg STK-MED ONCE .ROUTE ; Start 11/19/18 at 21:53; Stop 11/19/18 at 21:53; Status DC Magnesium Sulfate 50 ml @ 25 mls/hr 1X ONCE IV Last administered on 11/19/18at 23:00; Start 11/19/18 at 22:30; Stop 11/20/18 at 00:29; Status DC Fentanyl Citrate (Fentanyl 2ml Vial) 50 mcg 1X ONCE IV Last administered on 11/19/18at 23:00; Start 11/19/18 at 22:45; Stop 11/19/18 at 22:46; Status DC Ondansetron HCl (Zofran) 4 mg PRN Q8HRS PRN IV NAUSEA/VOMITING Last administered on 11/19/18at 23:00; Start 11/19/18 at 22:45; Stop 11/20/18 at 22:44; Status DC Fentanyl Citrate (Fentanyl 2ml Vial) 75 mcg PRN Q2HR PRN IV PAIN Last administered on 11/21/18at 03:03; Start 11/19/18 at 22:45 Hydromorphone HCl (Dilaudid) 1 mg PRN Q4HRS PRN IVP PAIN Last administered on 11/21/18at 05:22; Start 11/20/18 at 09:15 Fluoxetine HCl (PROzac) 5 mg DAILY PEG ; Start 11/21/18 at 09:00 Lamotrigine (LaMICtal) 100 mg DAILY PO ; Start 11/21/18 at 09:00; Stop 11/20/18 at 21:05; Status DC Nicotine (Nicoderm Cq 21mg) 1 patch PRN DAILY PRN TD SMOKING CESSATION Last administered on 11/20/18at 11:22; Start 11/20/18 at 09:30 Olanzapine (ZyPREXA) 5 mg DAILY PO ; Start 11/21/18 at 09:00 Famotidine (Pepcid) 40 mg QHS PO Last administered on 11/20/18at 19:54; Start 11/20/18 at 21:00 Loperamide HCl (Imodium) 4 mg PRN QID PRN PO DIARRHEA Last administered on 11/21/18at 03:03; Start 11/20/18 at 09:45 Piperacillin Sod/ Tazobactam Sod (Zosyn Per Pharmacy) 1 each PRN DAILY PRN MC SEE COMMENTS; Start 11/20/18 at 09:30; Stop 11/20/18 at 11:10; Status DC Piperacillin Sod/ Tazobactam Sod 4.5 gm/Sodium Chloride 100 ml @ 200 mls/hr Q6HRS IV Last administered on 11/20/18at 10:03; Start 11/20/18 at 10:00; Stop 11/20/18 at 11:10; Status DC Zolpidem Tartrate (Ambien) 5 mg HS PO Last administered on 11/20/18at 19:54; Start 11/20/18 at 21:00 Diphenhydramine HCl (Benadryl) 25 mg PRN Q6HRS PRN PO ITCHING; Start 11/20/18 at 09:45 Oxycodone HCl (Roxicodone) 15 mg PRN Q4HRS PRN PO PAIN; Start 11/20/18 at 09:45 Enoxaparin Sodium (Lovenox Per Pharmacy Prophylaxis Dosing) 1 each PRN DAILY PRN MC SEE COMMENTS; Start 11/20/18 at 09:45 Enoxaparin Sodium (Lovenox 40mg Syringe) 40 mg Q24H SQ ; Start 11/20/18 at 10:00 Daptomycin 300 mg/ Sodium Chloride 50 ml @ 100 mls/hr Q24H IV Last administered on 11/20/18at 13:15; Start 11/20/18 at 13:00 Micafungin Sodium 100 mg/Dextrose 100 ml @ 100 mls/hr Q24H IV Last administered on 11/20/18at 11:33; Start 11/20/18 at 11:30 Lamotrigine (LaMICtal) 100 mg STK-MED ONCE .ROUTE ; Start 11/20/18 at 21:03; Stop 11/20/18 at 21:03; Status DC Lamotrigine (LaMICtal) 100 mg HS PO Last administered on 11/20/18at 21:07; Start 11/20/18 at 21:15 Active Scripts Active Reported NICODERM CQ 21mg (Nicotine) 1 Each Patch.td24 1 Patch TD PRN DAILY PRN Prozac (Fluoxetine Hcl) 10 Mg Capsule 5 Mg PO DAILY Famotidine 40 Mg Tablet 40 Mg PO HS Fluoxetine Hcl 20 Mg Tablet 20 Mg PO DAILY Olanzapine 5 Mg Tablet 5 Mg PO DAILY Oxycodone Hcl Immed.release (Oxycodone Hcl) 15 Mg Tablet 15 Mg PO QID Lamictal (Lamotrigine) 100 Mg Tablet 1 Tab PO DAILY Loperamide (Loperamide Hcl) 2 Mg Tablet 4 Mg PO PRN QID PRN Vitals/I & O Vital Sign - Last 24 Hours 11/20/18 11/20/18 11/20/18 11/20/18 09:33 09:33 11:05 11:22 Temp 98.4 98.4 Pulse 72 Resp 18 B/P (MAP) 127/70 (89) Pulse Ox 98 98 97 98 O2 Delivery Room Air Room Air Room Air Room Air 11/20/18 11/20/18 11/20/18 11/20/18 11:42 13:15 14:12 14:22 Pulse Ox 98 98 98 98 O2 Delivery Room Air Room Air Room Air Room Air 11/20/18 11/20/18 11/20/18 11/20/18 15:10 15:12 16:01 16:55 Temp 97.6 97.6 Pulse 81 Resp 20 B/P (MAP) 123/79 (94) Pulse Ox 97 98 98 98 O2 Delivery Room Air Room Air Room Air Room Air 11/20/18 11/20/18 11/20/18 11/20/18 19:05 19:54 20:00 20:46 Temp 98.9 98.9 Pulse 86 Resp 16 B/P (MAP) 138/85 (102) Pulse Ox 97 O2 Delivery Room Air Room Air Room Air Room Air 11/20/18 11/20/18 11/20/18 11/21/18 22:09 22:47 23:43 00:09 Temp 98.7 98.7 Pulse 63 Resp 16 B/P (MAP) 137/88 (104) Pulse Ox 96 O2 Delivery Room Air Room Air Room Air Room Air 11/21/18 11/21/18 11/21/18 11/21/18 01:11 03:03 03:49 03:54 Temp 98.3 98.3 Pulse 83 Resp 16 B/P (MAP) 129/83 (98) Pulse Ox 95 O2 Delivery Room Air Room Air Room Air Room Air 11/21/18 11/21/18 11/21/18 05:22 06:36 07:00 Temp 98.7 98.7 Pulse 80 Resp 18 B/P (MAP) 117/73 (88) Pulse Ox 98 O2 Delivery Room Air Room Air Room Air Intake and Output 11/20/18 11/20/18 11/21/18 15:00 23:00 07:00 Intake Total 380 ml 350 ml 550 ml Balance 380 ml 350 ml 550 ml MARILYN CARRENO MD Nov 21, 2018 09:20
[2018-11-21] MEDS ORDERED: HYDROmorphone 2 MG/ML VIAL IVP ONE (09:30)
[2018-11-21] MEDS: OLANZapine 5 MG TABLET PO SCH (09:37)
[2018-11-21] MEDS: ENOXAPARIN 40 MG/0.4 ML SYRINGE. SQ SCH (09:40)
--- NOTE | 2018-11-21 10:35 | PDOC ---
Infectious Disease Note Subjective Subjective Doing better, fever and chills settled down ROS ROS per HPI otherwise negative Vital Sign Vital Signs Vital Signs Date Time Temp Pulse Resp B/P (MAP) Pulse Ox O2 Delivery O2 Flow Rate FiO2 11/21/18 10:08 98 Room Air 11/21/18 07:00 98.7 80 18 117/73 (88) 98.7 Physical Exam PHYSICAL EXAM GENERAL: Walking back to bed, steady gait, alert, no apparent distress. HEENT: Pupils equally round, normal conjunctivae. Oropharynx pink and moist. NECK: Supple. LUNGS: Clear to auscultation. HEART: S1, S2. ABDOMEN: Soft, nontender with bowel sounds present. EXTREMITIES: No gross edema or cyanosis. SKIN: Warm to touch. No signs of rash. NEUROLOGIC: Alert and oriented x 3. LIJ PowerPort de-accessed. hardware exposed. No redness/swelling/drainage PIV Labs Micro 11/19. BLOOD CULTURE Final GRAM POSSOTIVE COCCI IN CLUSTERS 2 SETS DRAWN, 4 OF 4 POSITIVE Objective Assessment GPC bacteremia (now 4 of 4 bottles), 11/19. 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 diff Plan Plan of Care Continue dapto and micafungin Monitor for ab toxicities/side effects Repeat BC Await GPC ID/susceptibilities Port will need to be removed, + hardware exposure - am lab consult IR - D/w Dr Porras Attending Co-Sign Attending Co-Sign The patient was seen and interviewed as well as examined at the bedside. The chart was reviewed. The case was discussed. Agree with the plan of care. ISIDRO SOLIS APRN Nov 21, 2018 10:35 CLAUDIA ESCOBEDO MD Nov 21, 2018 13:36
[2018-11-21 11:00] VITALS: BP 120/76
[2018-11-21] MEDS: MICAFUNGIN 100 MG in IV DEXTROSE 5% 100ML 100 ML IV SCH (12:09)
[2018-11-21] MEDS: NORMAL SALINE IV SCH (13:58)
[2018-11-21] MEDS: DAPTOMYCIN IV SCH (13:58)
[2018-11-21 15:00] VITALS: BP 140/77
--- NOTE | 2018-11-21 18:11 | PDOC ---
SURGICAL PROGRESS NOTE Subjective Pt without new c/o, fevers resolved Vital Signs Vital Signs Date Time Temp Pulse Resp B/P (MAP) Pulse Ox O2 Delivery O2 Flow Rate FiO2 11/21/18 17:32 97 Room Air 11/21/18 15:00 98.5 78 18 140/77 (98) 98.5 I&O Intake and Output 11/21/18 07:00 Intake Total 1280 ml Balance 1280 ml Intake Oral 1280 ml # Voids 3 General: Alert, Oriented X3, Cooperative, No acute distress HEENT: Other (dressing intact) Labs Laboratory Tests Test 11/19/18 21:05 11/19/18 21:23 11/20/18 00:45 White Blood Count 15.1 x10^3/uL (4.0-11.0) Red Blood Count 3.64 x10^6/uL (3.50-5.40) Hemoglobin 11.2 g/dL (12.0-15.5) Hematocrit 32.3 % (36.0-47.0) Mean Corpuscular Volume 89 fL (79-100) Mean Corpuscular Hemoglobin 31 pg (25-35) Mean Corpuscular Hemoglobin Concent 35 g/dL (31-37) Red Cell Distribution Width 14.3 % (11.5-14.5) Platelet Count 224 x10^3/uL (140-400) Neutrophils (%) (Auto) 77 % (31-73) Lymphocytes (%) (Auto) 13 % (24-48) Monocytes (%) (Auto) 8 % (0-9) Eosinophils (%) (Auto) 1 % (0-3) Basophils (%) (Auto) 1 % (0-3) Neutrophils # (Auto) 11.7 x10^3/uL (1.8-7.7) Lymphocytes # (Auto) 2.0 x10^3/uL (1.0-4.8) Monocytes # (Auto) 1.2 x10^3/uL (0.0-1.1) Eosinophils # (Auto) 0.1 x10^3/uL (0.0-0.7) Basophils # (Auto) 0.1 x10^3/uL (0.0-0.2) Prothrombin Time 13.8 SEC (11.7-14.0) Prothromb Time International Ratio 1.1 (0.8-1.1) Activated Partial Thromboplast Time 31 SEC (24-38) Sodium Level 140 mmol/L (136-145) Potassium Level 4.2 mmol/L (3.5-5.1) Chloride Level 101 mmol/L (98-107) Carbon Dioxide Level 29 mmol/L (21-32) Anion Gap 10 (6-14) Blood Urea Nitrogen 16 mg/dL (7-20) Creatinine 0.7 mg/dL (0.6-1.0) Estimated GFR (Cockcroft-Gault) 96.4 BUN/Creatinine Ratio 23 (6-20) Glucose Level 81 mg/dL (70-99) Lactic Acid Level 1.1 mmol/L (0.4-2.0) 0.9 mmol/L (0.4-2.0) Calcium Level 8.9 mg/dL (8.5-10.1) Magnesium Level 1.5 mg/dL (1.8-2.4) Total Bilirubin 0.3 mg/dL (0.2-1.0) Aspartate Amino Transf (AST/SGOT) 30 U/L (15-37) Alanine Aminotransferase (ALT/SGPT) 36 U/L (14-59) Alkaline Phosphatase 150 U/L (46-116) Total Protein 7.5 g/dL (6.4-8.2) Albumin 3.4 g/dL (3.4-5.0) Albumin/Globulin Ratio 0.8 (1.0-1.7) Urine Collection Type Void Urine Color Yellow Urine Clarity Clear Urine pH 6.0 Urine Specific [place] 1.025 Urine Protein Negative mg/dL (NEG-TRACE) Urine Glucose (UA) Negative mg/dL (NEG) Urine Ketones (Stick) Negative mg/dL (NEG) Urine Blood Negative (NEG) Urine Nitrite Negative (NEG) Urine Bilirubin Negative (NEG) Urine Urobilinogen Dipstick 1.0 mg/dL (0.2 mg/dL) Urine Leukocyte Esterase Negative (NEG) Urine RBC 0 /HPF (0-2) Urine WBC 1-4 /HPF (0-4) Urine Squamous Epithelial Cells Occ /LPF Urine Bacteria Few /HPF (0-FEW) Urine Mucus Mod /LPF Problem List Problems Medical Problems: (1) Infection of venous access port Status: Acute (2) Sepsis Status: Acute Assessment/Plan portacath infection will ask IR regarding timing of replacement d/w JEWELS HOOKS MD Nov 21, 2018 18:11
[2018-11-21 19:44] VITALS: BP 125/77
[2018-11-21] MEDS: LACTOBACILLUS RHAMNOSUS GG 1 CAPSULE. PO SCH (20:31)
[2018-11-21] MEDS: ZOLPIDEM 5 MG TABLET. PO SCH (20:32)
[2018-11-21] MEDS: lamoTRIgine 100 MG TABLET. PO SCH (20:32)
[2018-11-21] MEDS: FAMOTIDINE 20 MG TABLET. PO SCH (20:37)
[2018-11-21 23:10] VITALS: BP 121/71
[2018-11-22] MEDS: HYDROmorphone 2 MG/ML VIAL IVP PRN ×4 (00:50→23:55)
[2018-11-22] MEDS: fentaNYL PF VIAL 100 MCG/2 ML VIAL IV PRN ×7 (03:09→22:05)
[2018-11-22 03:28] VITALS: BP 136/86
[2018-11-22 07:14] LABS: ALBUMIN 3.1 g/dL (3.4-5.0); ALBUMIN/GLOBULIN RATIO 0.7 (1.0-1.7); CALCIUM 8.9 mg/dL (8.5-10.1); CREATININE 0.6 mg/dL (0.6-1.0); GFR 115.1; MAGNESIUM 1.7 mg/dL (1.8-2.4); PHOSPHORUS 5.2 mg/dL (2.6-4.7); POTASSIUM 3.8 mmol/L (3.5-5.1); TOTAL BILIRUBIN 0.3 mg/dL (0.2-1.0); TOTAL PROTEIN 7.3 g/dL (6.4-8.2)
[2018-11-22 07:18] LABS: BASO % 1 % (0-3); EOS # 0.2 x10^3/uL (0.0-0.7); EOS % 3 % (0-3); HEMATOCRIT 32.5 % (36.0-47.0); HEMOGLOBIN 10.9 g/dL (12.0-15.5); LYMPH # 2.4 x10^3/uL (1.0-4.8); LYMPH % 44 % (24-48); MEAN CORPUSCULAR HEMOGLOBIN 30 pg (25-35); MEAN CORPUSCULAR HGB CONC 34 g/dL (31-37); MEAN CORPUSCULAR VOLUME 89 fL (79-100); MONO # 0.4 x10^3/uL (0.0-1.1); MONO % 8 % (0-9); NEUT # 2.4 x10^3/uL (1.8-7.7); NEUT % 45 % (31-73); PLATELET COUNT 193 x10^3/uL (140-400); RED BLOOD COUNT 3.66 x10^6/uL (3.50-5.40); RED CELL DISTRIBUTION WIDTH 14.7 % (11.5-14.5); WHITE BLOOD COUNT 5.4 x10^3/uL (4.0-11.0)
[2018-11-22] MEDS: OLANZapine 5 MG TABLET PO SCH (07:29)
[2018-11-22] MEDS: LOPERAMIDE 2 MG CAPSULE PO PRN ×3 (07:29→20:29)
[2018-11-22] MEDS: LACTOBACILLUS RHAMNOSUS GG 1 CAPSULE. PO SCH ×2 (07:29→20:16)
[2018-11-22] MEDS: ENOXAPARIN 40 MG/0.4 ML SYRINGE. SQ SCH (07:30)
[2018-11-22 07:46] VITALS: BP 145/97
--- NOTE | 2018-11-22 08:51 | PDOC ---
SURGICAL PROGRESS NOTE Subjective resting no complaints Vital Signs Vital Signs Date Time Temp Pulse Resp B/P (MAP) Pulse Ox O2 Delivery O2 Flow Rate FiO2 11/22/18 08:05 99 Room Air 11/22/18 07:46 98.1 79 18 145/97 (113) 98.1 I&O Intake and Output 11/22/18 07:00 Intake Total 1830 ml Balance 1830 ml Intake Oral 1830 ml # Voids 6 General: Alert, Cooperative HEENT: Other (port exposed under skin) Labs Laboratory Tests Test 11/22/18 05:30 White Blood Count 5.4 x10^3/uL (4.0-11.0) Red Blood Count 3.66 x10^6/uL (3.50-5.40) Hemoglobin 10.9 g/dL (12.0-15.5) Hematocrit 32.5 % (36.0-47.0) Mean Corpuscular Volume 89 fL (79-100) Mean Corpuscular Hemoglobin 30 pg (25-35) Mean Corpuscular Hemoglobin Concent 34 g/dL (31-37) Red Cell Distribution Width 14.7 % (11.5-14.5) Platelet Count 193 x10^3/uL (140-400) Neutrophils (%) (Auto) 45 % (31-73) Lymphocytes (%) (Auto) 44 % (24-48) Monocytes (%) (Auto) 8 % (0-9) Eosinophils (%) (Auto) 3 % (0-3) Basophils (%) (Auto) 1 % (0-3) Neutrophils # (Auto) 2.4 x10^3/uL (1.8-7.7) Lymphocytes # (Auto) 2.4 x10^3/uL (1.0-4.8) Monocytes # (Auto) 0.4 x10^3/uL (0.0-1.1) Eosinophils # (Auto) 0.2 x10^3/uL (0.0-0.7) Basophils # (Auto) 0.0 x10^3/uL (0.0-0.2) Sodium Level 144 mmol/L (136-145) Potassium Level 3.8 mmol/L (3.5-5.1) Chloride Level 106 mmol/L (98-107) Carbon Dioxide Level 29 mmol/L (21-32) Anion Gap 9 (6-14) Blood Urea Nitrogen 8 mg/dL (7-20) Creatinine 0.6 mg/dL (0.6-1.0) Estimated GFR (Cockcroft-Gault) 115.1 BUN/Creatinine Ratio 13 (6-20) Glucose Level 90 mg/dL (70-99) Calcium Level 8.9 mg/dL (8.5-10.1) Phosphorus Level 5.2 mg/dL (2.6-4.7) Magnesium Level 1.7 mg/dL (1.8-2.4) Total Bilirubin 0.3 mg/dL (0.2-1.0) Aspartate Amino Transf (AST/SGOT) 27 U/L (15-37) Alanine Aminotransferase (ALT/SGPT) 35 U/L (14-59) Alkaline Phosphatase 144 U/L (46-116) Total Protein 7.3 g/dL (6.4-8.2) Albumin 3.1 g/dL (3.4-5.0) Albumin/Globulin Ratio 0.7 (1.0-1.7) Laboratory Tests Test 11/22/18 05:30 White Blood Count 5.4 x10^3/uL (4.0-11.0) Red Blood Count 3.66 x10^6/uL (3.50-5.40) Hemoglobin 10.9 g/dL (12.0-15.5) Hematocrit 32.5 % (36.0-47.0) Mean Corpuscular Volume 89 fL (79-100) Mean Corpuscular Hemoglobin 30 pg (25-35) Mean Corpuscular Hemoglobin Concent 34 g/dL (31-37) Red Cell Distribution Width 14.7 % (11.5-14.5) Platelet Count 193 x10^3/uL (140-400) Neutrophils (%) (Auto) 45 % (31-73) Lymphocytes (%) (Auto) 44 % (24-48) Monocytes (%) (Auto) 8 % (0-9) Eosinophils (%) (Auto) 3 % (0-3) Basophils (%) (Auto) 1 % (0-3) Neutrophils # (Auto) 2.4 x10^3/uL (1.8-7.7) Lymphocytes # (Auto) 2.4 x10^3/uL (1.0-4.8) Monocytes # (Auto) 0.4 x10^3/uL (0.0-1.1) Eosinophils # (Auto) 0.2 x10^3/uL (0.0-0.7) Basophils # (Auto) 0.0 x10^3/uL (0.0-0.2) Sodium Level 144 mmol/L (136-145) Potassium Level 3.8 mmol/L (3.5-5.1) Chloride Level 106 mmol/L (98-107) Carbon Dioxide Level 29 mmol/L (21-32) Anion Gap 9 (6-14) Blood Urea Nitrogen 8 mg/dL (7-20) Creatinine 0.6 mg/dL (0.6-1.0) Estimated GFR (Cockcroft-Gault) 115.1 BUN/Creatinine Ratio 13 (6-20) Glucose Level 90 mg/dL (70-99) Calcium Level 8.9 mg/dL (8.5-10.1) Phosphorus Level 5.2 mg/dL (2.6-4.7) Magnesium Level 1.7 mg/dL (1.8-2.4) Total Bilirubin 0.3 mg/dL (0.2-1.0) Aspartate Amino Transf (AST/SGOT) 27 U/L (15-37) Alanine Aminotransferase (ALT/SGPT) 35 U/L (14-59) Alkaline Phosphatase 144 U/L (46-116) Total Protein 7.3 g/dL (6.4-8.2) Albumin 3.1 g/dL (3.4-5.0) Albumin/Globulin Ratio 0.7 (1.0-1.7) Problem List Problems Medical Problems: (1) Fever Status: Acute (2) Infection of venous access port Status: Acute (3) Sepsis Status: Acute Assessment/Plan port site infection concern awaiting IR eval for removal continue abx QUIN SWAIN APRN Nov 22, 2018 08:51
[2018-11-22] MEDS ORDERED: fentaNYL PF VIAL 100 MCG/2 ML VIAL ONE ×2 (09:47→11:37)
[2018-11-22] MEDS ORDERED: MIDAZOLAM HCL/PF 2 MG/2 ML VIAL. ONE (09:47)
[2018-11-22] MEDS ORDERED: LIDOCAINE 1%/EPI 1:100,000 20 ML VIAL. ONE (09:48)
[2018-11-22] MEDS ORDERED: fentaNYL PF VIAL 100 MCG/2 ML VIAL IV ONE (10:00)
[2018-11-22] MEDS ORDERED: LIDOCAINE 1%/EPI 1:100,000 20 ML VIAL. INJ ONE (10:00)
[2018-11-22] MEDS ORDERED: MIDAZOLAM HCL/PF 2 MG/2 ML VIAL. IV ONE (10:00)
--- NOTE | 2018-11-22 10:15 | PDOC ---
Infectious Disease Note Subjective: Subjective Pt is feeling better no fevers awaiting removal of port today ROS: ROS Negative otherwise. Vital Signs: Vital Signs Vital Signs Date Time Temp Pulse Resp B/P (MAP) Pulse Ox O2 Delivery O2 Flow Rate FiO2 11/22/18 08:05 99 Room Air 11/22/18 07:46 98.1 79 18 145/97 (113) 98.1 Physical Exam: PHYSICAL EXAM GENERAL: The patient is sitting upright in bed, alert, no apparent distress. HEENT: Pupils equally round, normal conjunctivae. Oropharynx pink and moist. NECK: Supple. LUNGS: Clear to auscultation. HEART: S1, S2. ABDOMEN: Soft, nontender with bowel sounds present. EXTREMITIES: No gross edema or cyanosis. SKIN: Warm to touch. No signs of rash. NEUROLOGIC: Alert and oriented x 3. LIJ PowerPort site nontender, without redness or swelling. Medications: Inpatient Meds: Current Medications Medications (Trade) Dose Ordered Sig/Caroline Start Time Stop Time Status Last Admin Dose Admin Daptomycin 300 mg/ Sodium Chloride 50 ml @ 100 mls/hr Q24H 11/20/18 13:00 11/21/18 14:01 100 MLS/HR Diphenhydramine HCl (Benadryl) 25 mg PRN Q6HRS PRN 11/20/18 09:45 Enoxaparin Sodium (Lovenox 40mg Syringe) 40 mg Q24H 11/20/18 10:00 Enoxaparin Sodium (Lovenox Per Pharmacy Prophylaxis Dosing) 1 each PRN DAILY PRN 11/20/18 09:45 Famotidine (Pepcid) 40 mg QHS 11/20/18 21:00 11/21/18 20:37 40 MG Fentanyl Citrate (Fentanyl 2ml Vial) 100 mcg 1X ONCE 11/22/18 10:00 11/22/18 10:01 DC Fluoxetine HCl (PROzac) 5 mg DAILY 11/21/18 09:00 11/22/18 07:32 5 MG Hydromorphone HCl (Dilaudid) 1 mg 1X ONCE 11/21/18 09:30 11/21/18 09:31 DC 11/21/18 09:40 1 MG Ibuprofen (Motrin) 400 mg 1X ONCE 11/19/18 21:30 11/19/18 21:31 DC 11/19/18 21:56 400 MG Lactobacillus Rhamnosus (Culturelle) 1 cap BID 11/21/18 21:00 11/22/18 07:32 1 CAP Lamotrigine (LaMICtal) 100 mg HS 11/20/18 21:15 11/21/18 20:32 100 MG Lidocaine/ Epinephrine (LIDOCAINE 1%-EPI 1:100,000 Multi-Dose) 20 ml 1X ONCE 11/22/18 10:00 11/22/18 10:01 DC Loperamide HCl (Imodium) 4 mg PRN QID PRN 11/20/18 09:45 11/22/18 07:32 4 MG Magnesium Sulfate 50 ml @ 25 mls/hr 1X ONCE 11/19/18 22:30 11/20/18 00:29 DC 11/19/18 23:00 25 MLS/HR Micafungin Sodium 100 mg/Dextrose 100 ml @ 100 mls/hr Q24H 11/20/18 11:30 11/21/18 12:14 100 MLS/HR Midazolam HCl (Versed) 2 mg 1X ONCE 11/22/18 10:00 11/22/18 10:01 DC Nicotine (Nicoderm Cq 21mg) 1 patch PRN DAILY PRN 11/20/18 09:30 11/20/18 11:22 1 PATCH Olanzapine (ZyPREXA) 5 mg DAILY 11/21/18 09:00 11/22/18 07:32 5 MG Ondansetron HCl (Zofran) 4 mg PRN Q8HRS PRN 11/19/18 22:45 11/20/18 22:44 DC 11/19/18 23:00 4 MG Oxycodone HCl (Roxicodone) 15 mg PRN Q4HRS PRN 11/20/18 09:45 Piperacillin Sod/ Tazobactam Sod (Zosyn Per Pharmacy) 1 each PRN DAILY PRN 11/20/18 09:30 11/20/18 11:10 DC Piperacillin Sod/ Tazobactam Sod 4.5 gm/Sodium Chloride 100 ml @ 200 mls/hr Q6HRS 11/20/18 10:00 11/20/18 11:10 DC 11/20/18 10:03 200 MLS/HR Sodium Chloride 1,000 ml @ 1,000 mls/hr 1X ONCE 11/19/18 21:00 11/19/18 21:59 DC 11/19/18 22:36 1,000 MLS/HR Zolpidem Tartrate (Ambien) 5 mg HS 11/20/18 21:00 11/21/18 20:32 5 MG Labs: Lab Laboratory Tests Test 11/22/18 05:30 White Blood Count 5.4 x10^3/uL (4.0-11.0) Red Blood Count 3.66 x10^6/uL (3.50-5.40) Hemoglobin 10.9 g/dL (12.0-15.5) Hematocrit 32.5 % (36.0-47.0) Mean Corpuscular Volume 89 fL (79-100) Mean Corpuscular Hemoglobin 30 pg (25-35) Mean Corpuscular Hemoglobin Concent 34 g/dL (31-37) Red Cell Distribution Width 14.7 % (11.5-14.5) Platelet Count 193 x10^3/uL (140-400) Neutrophils (%) (Auto) 45 % (31-73) Lymphocytes (%) (Auto) 44 % (24-48) Monocytes (%) (Auto) 8 % (0-9) Eosinophils (%) (Auto) 3 % (0-3) Basophils (%) (Auto) 1 % (0-3) Neutrophils # (Auto) 2.4 x10^3/uL (1.8-7.7) Lymphocytes # (Auto) 2.4 x10^3/uL (1.0-4.8) Monocytes # (Auto) 0.4 x10^3/uL (0.0-1.1) Eosinophils # (Auto) 0.2 x10^3/uL (0.0-0.7) Basophils # (Auto) 0.0 x10^3/uL (0.0-0.2) Sodium Level 144 mmol/L (136-145) Potassium Level 3.8 mmol/L (3.5-5.1) Chloride Level 106 mmol/L (98-107) Carbon Dioxide Level 29 mmol/L (21-32) Anion Gap 9 (6-14) Blood Urea Nitrogen 8 mg/dL (7-20) Creatinine 0.6 mg/dL (0.6-1.0) Estimated GFR (Cockcroft-Gault) 115.1 BUN/Creatinine Ratio 13 (6-20) Glucose Level 90 mg/dL (70-99) Calcium Level 8.9 mg/dL (8.5-10.1) Phosphorus Level 5.2 mg/dL (2.6-4.7) Magnesium Level 1.7 mg/dL (1.8-2.4) Total Bilirubin 0.3 mg/dL (0.2-1.0) Aspartate Amino Transf (AST/SGOT) 27 U/L (15-37) Alanine Aminotransferase (ALT/SGPT) 35 U/L (14-59) Alkaline Phosphatase 144 U/L (46-116) Total Protein 7.3 g/dL (6.4-8.2) Albumin 3.1 g/dL (3.4-5.0) Albumin/Globulin Ratio 0.7 (1.0-1.7) Micro RUN DATE: 11/21/18 PAGE 1 RUN TIME: 835 [facility] [address] [place] [address] Pipo Clay M.D., Jordan Worker PATIENT: DENNIS MEAD Sayda ACCT: [id number] LOC: [address] [place] [address] U: [id number] AGE/SX: 33/F ROOM: 652 RE11/19/[address]: MARILYN CARRENO MD : 1985 BED: 1 DIS: STATUS: ADM IN TLOC: SPEC #: [id number] SUJATA: 11/19/18 STATUS: COMP REQ #: [id number] RECD: 11/19/[address] [facility] [address]: GYPSY ANTHONY DO SOURCE: BLOOD ENTR: 11/19/18-[address] [facility] [address]: MILLIE VILLAREAL MD [facility]: ORDERED: BCULT Procedure Result BLOOD CULTURE Final GRAM POSSOTIVE COCCI IN CLUSTERS 2 SETS DRAWN, 4 OF 4 POSITIVE CALLED TO JAIDEN MITCHELL RN IN 6S BY Evans QUIJANO,11/21/18,0830 SPECIMEN SENDING TO [employer] FOR FURTHER WORK UP Objective: Assessment: 1. Gram-positive cocci bacteremia (4 of 4 bottles) from 11/19. 2. Possible infected at PowerPort. 3. Fever. 4. Leukocytosis. 5. 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 6. Short bowel syndrome, on chronic TPN. 7. History of methicillin-resistant Staphylococcus aureus. 8. History of Clostridium difficile. Plan: Plan of Care Continue dapto and micafungin wbc has improved Monitor for ab toxicities/side effects Repeat BC 11/21 pending Await GPC ID/susceptibilities Port awaiting removal today send cath tip for cults d/w nursing staff VINOD HERNANDEZ MD Nov 22, 2018 10:15
[2018-11-22] MEDS ORDERED: IV RINGERS,LACTATED 1000ML 1,000 ML IV SCH (10:17)
[2018-11-22] MEDS ORDERED: PROPOFOL 60 ML IV ONE (10:19)
[2018-11-22] MEDS ORDERED: PROCHLORPERAZINE 10 MG/2 ML VIAL. IV PRN (10:30)
[2018-11-22] MEDS ORDERED: MORPHINE SULFATE 2 MG/ML VIAL. IV PRN (10:30)
[2018-11-22] MEDS ORDERED: fentaNYL PF VIAL 100 MCG/2 ML VIAL IV PRN (10:30)
[2018-11-22] MEDS ORDERED: ONDANSETRON PF 4 MG/2 ML VIAL. IV PRN (10:30)
[2018-11-22] MEDS: HYDROmorphone 2 MG/ML VIAL IV PRN ×5 (11:19→16:16)
[2018-11-22 11:59] VITALS: BP 133/84
--- NOTE | 2018-11-22 12:03 | RAD ---
11/22/2018 9:58 AM Procedure: Removal left internal jugular PowerPort Clinical Indication: Probable port infection Discussion: The procedure was explained in its entirety to the patient or the patients designated circulation representative by a member of the treatment team, including a discussion of the risks, benefits and commonly accepted alternatives to the procedure, as well as the expected consequences of no therapy whatsoever. Discussion of the risks included, but was not limited to, those that are most frequent and those that are rare but possibly severe or life-threatening, as well as the possibility of unforeseen complications. All elements of maximal sterile barrier technique including the use of a cap, mask, sterile gown, sterile gloves, large sterile sheet, appropriate hand hygiene, and 2% chlorhexidine for cutaneous antisepsis (or acceptable alternative antiseptic per current guidelines) were followed for this procedure. A timeout procedure was performed. The left chest was prepped and draped using sterile barrier technique. 1% lidocaine with epinephrine was administered for local anesthesia. A small incision was made overlying the port reservoir. The reservoir and catheter removed intact. The wound was closed in layers using 4-0 Vicryl suture. Sterile dressings were applied. No immediate complications were identified. Catheter tip was sent for culture. Total fluoroscopy time: 0.1 min Dose area product: 1 Gycm2 Anesthesia: MAC anesthesia was provided by the anesthesiology department Impression: Removal left internal jugular PowerPort
[2018-11-22] MEDS: DAPTOMYCIN IV SCH (12:40)
[2018-11-22] MEDS: NORMAL SALINE IV SCH (12:40)
--- NOTE | 2018-11-22 13:20 | PDOC ---
PROGRESS NOTES Chief Complaint Chief Complaint sepsis Bacteremia, 4/4 port infection short gut syndrome, malnutrition, mild, albumin 3.4 on admit history of uterine cancer, s/p surg, chemo and radiation, now with post effect bipolar disorder, tobacco use disorder History of Present Illness History of Present Illness pt seen before surg she was adamant that she needed propofol, which is a strange request cont current Abx / blood cx pos Vitals Vitals Vital Signs Date Time Temp Pulse Resp B/P (MAP) Pulse Ox O2 Delivery O2 Flow Rate FiO2 11/22/18 11:59 98.6 79 18 133/84 (100) 97 Room Air 98.6 11/22/18 11:31 2.0 Physical Exam Physical Exam GENERAL: The patient is sitting upright in bed, alert, no apparent distress. HEENT: Pupils equally round, normal conjunctivae. Oropharynx pink and moist. NECK: Supple. LUNGS: Clear to auscultation. HEART: S1, S2. ABDOMEN: Soft, nontender with bowel sounds present. EXTREMITIES: No gross edema or cyanosis. SKIN: Warm to touch. No signs of rash. NEUROLOGIC: Alert and oriented x 3. LIJ PowerPort site nontender, without redness or swelling. General: Alert, Cooperative Abdomen: Soft, No tenderness, Other (well healed incision) Extremities: No clubbing, No cyanosis Skin: No rashes, No breakdown Labs LABS Laboratory Tests Test 11/22/18 05:30 White Blood Count 5.4 x10^3/uL (4.0-11.0) Red Blood Count 3.66 x10^6/uL (3.50-5.40) Hemoglobin 10.9 g/dL (12.0-15.5) Hematocrit 32.5 % (36.0-47.0) Mean Corpuscular Volume 89 fL (79-100) Mean Corpuscular Hemoglobin 30 pg (25-35) Mean Corpuscular Hemoglobin Concent 34 g/dL (31-37) Red Cell Distribution Width 14.7 % (11.5-14.5) Platelet Count 193 x10^3/uL (140-400) Neutrophils (%) (Auto) 45 % (31-73) Lymphocytes (%) (Auto) 44 % (24-48) Monocytes (%) (Auto) 8 % (0-9) Eosinophils (%) (Auto) 3 % (0-3) Basophils (%) (Auto) 1 % (0-3) Neutrophils # (Auto) 2.4 x10^3/uL (1.8-7.7) Lymphocytes # (Auto) 2.4 x10^3/uL (1.0-4.8) Monocytes # (Auto) 0.4 x10^3/uL (0.0-1.1) Eosinophils # (Auto) 0.2 x10^3/uL (0.0-0.7) Basophils # (Auto) 0.0 x10^3/uL (0.0-0.2) Sodium Level 144 mmol/L (136-145) Potassium Level 3.8 mmol/L (3.5-5.1) Chloride Level 106 mmol/L (98-107) Carbon Dioxide Level 29 mmol/L (21-32) Anion Gap 9 (6-14) Blood Urea Nitrogen 8 mg/dL (7-20) Creatinine 0.6 mg/dL (0.6-1.0) Estimated GFR (Cockcroft-Gault) 115.1 BUN/Creatinine Ratio 13 (6-20) Glucose Level 90 mg/dL (70-99) Calcium Level 8.9 mg/dL (8.5-10.1) Phosphorus Level 5.2 mg/dL (2.6-4.7) Magnesium Level 1.7 mg/dL (1.8-2.4) Total Bilirubin 0.3 mg/dL (0.2-1.0) Aspartate Amino Transf (AST/SGOT) 27 U/L (15-37) Alanine Aminotransferase (ALT/SGPT) 35 U/L (14-59) Alkaline Phosphatase 144 U/L (46-116) Total Protein 7.3 g/dL (6.4-8.2) Albumin 3.1 g/dL (3.4-5.0) Albumin/Globulin Ratio 0.7 (1.0-1.7) Assessment and Plan Assessmemt and Plan Problems Medical Problems: (1) Fever Status: Acute (2) Infection of venous access port Status: Acute (3) Sepsis Status: Acute Comment Review of Relevant I have reviewed the following items noni (where applicable) has been applied. Labs Laboratory Tests Test 11/22/18 05:30 White Blood Count 5.4 x10^3/uL (4.0-11.0) Red Blood Count 3.66 x10^6/uL (3.50-5.40) Hemoglobin 10.9 g/dL (12.0-15.5) Hematocrit 32.5 % (36.0-47.0) Mean Corpuscular Volume 89 fL (79-100) Mean Corpuscular Hemoglobin 30 pg (25-35) Mean Corpuscular Hemoglobin Concent 34 g/dL (31-37) Red Cell Distribution Width 14.7 % (11.5-14.5) Platelet Count 193 x10^3/uL (140-400) Neutrophils (%) (Auto) 45 % (31-73) Lymphocytes (%) (Auto) 44 % (24-48) Monocytes (%) (Auto) 8 % (0-9) Eosinophils (%) (Auto) 3 % (0-3) Basophils (%) (Auto) 1 % (0-3) Neutrophils # (Auto) 2.4 x10^3/uL (1.8-7.7) Lymphocytes # (Auto) 2.4 x10^3/uL (1.0-4.8) Monocytes # (Auto) 0.4 x10^3/uL (0.0-1.1) Eosinophils # (Auto) 0.2 x10^3/uL (0.0-0.7) Basophils # (Auto) 0.0 x10^3/uL (0.0-0.2) Sodium Level 144 mmol/L (136-145) Potassium Level 3.8 mmol/L (3.5-5.1) Chloride Level 106 mmol/L (98-107) Carbon Dioxide Level 29 mmol/L (21-32) Anion Gap 9 (6-14) Blood Urea Nitrogen 8 mg/dL (7-20) Creatinine 0.6 mg/dL (0.6-1.0) Estimated GFR (Cockcroft-Gault) 115.1 BUN/Creatinine Ratio 13 (6-20) Glucose Level 90 mg/dL (70-99) Calcium Level 8.9 mg/dL (8.5-10.1) Phosphorus Level 5.2 mg/dL (2.6-4.7) Magnesium Level 1.7 mg/dL (1.8-2.4) Total Bilirubin 0.3 mg/dL (0.2-1.0) Aspartate Amino Transf (AST/SGOT) 27 U/L (15-37) Alanine Aminotransferase (ALT/SGPT) 35 U/L (14-59) Alkaline Phosphatase 144 U/L (46-116) Total Protein 7.3 g/dL (6.4-8.2) Albumin 3.1 g/dL (3.4-5.0) Albumin/Globulin Ratio 0.7 (1.0-1.7) Laboratory Tests Test 11/22/18 05:30 White Blood Count 5.4 x10^3/uL (4.0-11.0) Red Blood Count 3.66 x10^6/uL (3.50-5.40) Hemoglobin 10.9 g/dL (12.0-15.5) Hematocrit 32.5 % (36.0-47.0) Mean Corpuscular Volume 89 fL (79-100) Mean Corpuscular Hemoglobin 30 pg (25-35) Mean Corpuscular Hemoglobin Concent 34 g/dL (31-37) Red Cell Distribution Width 14.7 % (11.5-14.5) Platelet Count 193 x10^3/uL (140-400) Neutrophils (%) (Auto) 45 % (31-73) Lymphocytes (%) (Auto) 44 % (24-48) Monocytes (%) (Auto) 8 % (0-9) Eosinophils (%) (Auto) 3 % (0-3) Basophils (%) (Auto) 1 % (0-3) Neutrophils # (Auto) 2.4 x10^3/uL (1.8-7.7) Lymphocytes # (Auto) 2.4 x10^3/uL (1.0-4.8) Monocytes # (Auto) 0.4 x10^3/uL (0.0-1.1) Eosinophils # (Auto) 0.2 x10^3/uL (0.0-0.7) Basophils # (Auto) 0.0 x10^3/uL (0.0-0.2) Sodium Level 144 mmol/L (136-145) Potassium Level 3.8 mmol/L (3.5-5.1) Chloride Level 106 mmol/L (98-107) Carbon Dioxide Level 29 mmol/L (21-32) Anion Gap 9 (6-14) Blood Urea Nitrogen 8 mg/dL (7-20) Creatinine 0.6 mg/dL (0.6-1.0) Estimated GFR (Cockcroft-Gault) 115.1 BUN/Creatinine Ratio 13 (6-20) Glucose Level 90 mg/dL (70-99) Calcium Level 8.9 mg/dL (8.5-10.1) Phosphorus Level 5.2 mg/dL (2.6-4.7) Magnesium Level 1.7 mg/dL (1.8-2.4) Total Bilirubin 0.3 mg/dL (0.2-1.0) Aspartate Amino Transf (AST/SGOT) 27 U/L (15-37) Alanine Aminotransferase (ALT/SGPT) 35 U/L (14-59) Alkaline Phosphatase 144 U/L (46-116) Total Protein 7.3 g/dL (6.4-8.2) Albumin 3.1 g/dL (3.4-5.0) Albumin/Globulin Ratio 0.7 (1.0-1.7) Microbiology 11/21/18 Blood Culture - Preliminary, Resulted NO GROWTH AFTER 1 DAY Medications Current Medications Sodium Chloride 1,000 ml @ 1,000 mls/hr 1X ONCE IV Last administered on 11/19/18at 21:56; Start 11/19/18 at 21:00; Stop 11/19/18 at 21:59; Status DC Piperacillin Sod/ Tazobactam Sod 4.5 gm/Sodium Chloride 100 ml @ 200 mls/hr 1X ONCE IV Last administered on 11/19/18at 22:03; Start 11/19/18 at 21:30; Stop 11/19/18 at 21:59; Status DC Sodium Chloride 1,000 ml @ 1,000 mls/hr 1X ONCE IV Last administered on 11/19/18at 22:36; Start 11/19/18 at 21:00; Stop 11/19/18 at 21:59; Status DC Ibuprofen (Motrin) 400 mg 1X ONCE PO Last administered on 11/19/18at 21:56; Start 11/19/18 at 21:30; Stop 11/19/18 at 21:31; Status DC Fentanyl Citrate (Fentanyl 2ml Vial) 50 mcg 1X ONCE IV Last administered on 11/19/18at 22:03; Start 11/19/18 at 22:00; Stop 11/19/18 at 22:01; Status DC Fentanyl Citrate (Fentanyl 2ml Vial) 100 mcg STK-MED ONCE .ROUTE ; Start 11/19/18 at 21:53; Stop 11/19/18 at 21:53; Status DC Magnesium Sulfate 50 ml @ 25 mls/hr 1X ONCE IV Last administered on 11/19/18at 23:00; Start 11/19/18 at 22:30; Stop 11/20/18 at 00:29; Status DC Fentanyl Citrate (Fentanyl 2ml Vial) 50 mcg 1X ONCE IV Last administered on 11/19/18at 23:00; Start 11/19/18 at 22:45; Stop 11/19/18 at 22:46; Status DC Ondansetron HCl (Zofran) 4 mg PRN Q8HRS PRN IV NAUSEA/VOMITING Last administered on 11/19/18at 23:00; Start 11/19/18 at 22:45; Stop 11/20/18 at 22:44; Status DC Fentanyl Citrate (Fentanyl 2ml Vial) 75 mcg PRN Q2HR PRN IV MODERATE PAIN Last administered on 11/22/18 07:32; Start 11/19/18 at 22:45 Hydromorphone HCl (Dilaudid) 1 mg PRN Q4HRS PRN IVP SEVERE PAIN Last administered on 11/22/18at 05:08; Start 11/20/18 at 09:15 Fluoxetine HCl (PROzac) 5 mg DAILY PEG Last administered on 11/22/18at 07:32; Start 11/21/18 at 09:00 Lamotrigine (LaMICtal) 100 mg DAILY PO ; Start 11/21/18 at 09:00; Stop 11/20/18 at 21:05; Status DC Nicotine (Nicoderm Cq 21mg) 1 patch PRN DAILY PRN TD SMOKING CESSATION Last administered on 11/20/18at 11:22; Start 11/20/18 at 09:30 Olanzapine (ZyPREXA) 5 mg DAILY PO Last administered on 11/22/18at 07:32; Start 11/21/18 at 09:00 Famotidine (Pepcid) 40 mg QHS PO Last administered on 11/21/18at 20:37; Start 11/20/18 at 21:00 Loperamide HCl (Imodium) 4 mg PRN QID PRN PO DIARRHEA Last administered on 11/22/18at 07:32; Start 11/20/18 at 09:45 Piperacillin Sod/ Tazobactam Sod (Zosyn Per Pharmacy) 1 each PRN DAILY PRN MC SEE COMMENTS; Start 11/20/18 at 09:30; Stop 11/20/18 at 11:10; Status DC Piperacillin Sod/ Tazobactam Sod 4.5 gm/Sodium Chloride 100 ml @ 200 mls/hr Q6HRS IV Last administered on 11/20/18at 10:03; Start 11/20/18 at 10:00; Stop 11/20/18 at 11:10; Status DC Zolpidem Tartrate (Ambien) 5 mg HS PO Last administered on 11/21/18at 20:32; Start 11/20/18 at 21:00 Diphenhydramine HCl (Benadryl) 25 mg PRN Q6HRS PRN PO ITCHING; Start 11/20/18 at 09:45 Oxycodone HCl (Roxicodone) 15 mg PRN Q4HRS PRN PO PAIN; Start 11/20/18 at 09:45 Enoxaparin Sodium (Lovenox Per Pharmacy Prophylaxis Dosing) 1 each PRN DAILY PRN MC SEE COMMENTS; Start 11/20/18 at 09:45 Enoxaparin Sodium (Lovenox 40mg Syringe) 40 mg Q24H SQ ; Start 11/20/18 at 10:00 Daptomycin 300 mg/ Sodium Chloride 50 ml @ 100 mls/hr Q24H IV Last adm inistered on 11/22/18at 12:42; Start 11/20/18 at 13:00 Micafungin Sodium 100 mg/Dextrose 100 ml @ 100 mls/hr Q24H IV Last adminis tered on 11/21/18at 12:14; Start 11/20/18 at 11:30 Lamotrigine (LaMICtal) 100 mg STK-MED ONCE .ROUTE ; Start 11/20/18 at 21:03; Sto p 11/20/18 at 21:03; Status DC Lamotrigine (LaMICtal) 100 mg HS PO Last administered on 11/21/18at 20:32; Start 11/20/18 at 21:15 Hydromorphone HCl (Dilaudid) 1 mg 1X ONCE IVP Last administered on 11/21/18at 09:40; Start 11/21/18 at 09:30; Stop 11/21/18 at 09:31; Status DC Lactobacillus Rhamnosus (Culturelle) 1 cap BID PO Last administered on 11/22/18at 07:32; Start 11/21/18 at 21:00 Midazolam HCl (Versed) 2 mg STK-MED ONCE .ROUTE ; Start 11/22/18 at 09:47; Stop 11/22/18 at 09:48; Status DC Fentanyl Citrate (Fentanyl 2ml Vial) 100 mcg STK-MED ONCE .ROUTE ; Start 11/22/18 at 09:47; Stop 11/22/18 at 09:48; Status DC Lidocaine/ Epinephrine (LIDOCAINE 1%-EPI 1:100,000 Multi-Dose) 20 ml STK-MED ONCE .ROUTE ; Start 11/22/18 at 09:48; Stop 11/22/18 at 09:48; Status DC Midazolam HCl (Versed) 2 mg 1X ONCE IV ; Start 11/22/18 at 10:00; Stop 11/22/18 at 10:18; Status DC Fentanyl Citrate (Fentanyl 2ml Vial) 100 mcg 1X ONCE IV ; Start 11/22/18 at 10:00; Stop 11/22/18 at 10:18; Status DC Lidocaine/ Epinephrine (LIDOCAINE 1%-EPI 1:100,000 Multi-Dose) 20 ml 1X ONCE INJ Last administered on 11/22/18at 11:00; Start 11/22/18 at 10:00; Stop 11/22/18 at 10:01; Status DC Ondansetron HCl (Zofran) 4 mg PRN Q6HRS PRN IV NAUSEA/VOMITING; Start 11/22/18 at 10:30; Stop 11/23/18 at 10:29 Fentanyl Citrate (Fentanyl 2ml Vial) 25 mcg PRN Q5MIN PRN IV MILD PAIN 1-3; Start 11/22/18 at 10:30; Stop 11/22/18 at 12:25; Status DC Fentanyl Citrate (Fentanyl 2ml Vial) 50 mcg PRN Q5MIN PRN IV MODERATE TO SEVERE PAIN Last administered on 11/22/18at 11:53; Start 11/22/18 at 10:30; Stop 11/22/18 at 12:25; Status DC Morphine Sulfate (Morphine Sulfate) 1 mg PRN Q10MIN PRN IV SEVERE PAIN 7-10; Start 11/22/18 at 10:30; Stop 11/23/18 at 10:29 Ringer's Solution 1,000 ml @ 30 mls/hr Q24H IV ; Start 11/22/18 at 10:17; Stop 11/22/18 at 12:25; Status DC Hydromorphone HCl (Dilaudid) 0.5 mg PRN Q10MIN PRN IV SEV PAIN, Second choice Last administered on 11/22/18at 11:53; Start 11/22/18 at 10:30; Stop 11/23/18 at 10:29 Prochlorperazine Edisylate (Compazine) 5 mg PACU PRN PRN IV NAUSEA, MRX1; Start 11/22/18 at 10:30; Stop 11/23/18 at 10:29 Propofol 60 ml @ As Directed STK-MED ONCE IV ; Start 11/22/18 at 10:19; Stop 11/22/18 at 10:20; Status DC Fentanyl Citrate (Fentanyl 2ml Vial) 100 mcg STK-MED ONCE .ROUTE ; Start 11/22/18 at 11:37; Stop 11/22/18 at 11:38; Status DC Active Scripts Active Reported NICODERM CQ 21mg (Nicotine) 1 Each Patch.td24 1 Patch TD PRN DAILY PRN Prozac (Fluoxetine Hcl) 10 Mg Capsule 5 Mg PO DAILY Famotidine 40 Mg Tablet 40 Mg PO HS Fluoxetine Hcl 20 Mg Tablet 20 Mg PO DAILY Olanzapine 5 Mg Tablet 5 Mg PO DAILY Oxycodone Hcl Immed.release (Oxycodone Hcl) 15 Mg Tablet 15 Mg PO QID Lamictal (Lamotrigine) 100 Mg Tablet 1 Tab PO DAILY Loperamide (Loperamide Hcl) 2 Mg Tablet 4 Mg PO PRN QID PRN Vitals/I & O Vital Sign - Last 24 Hours 11/21/18 11/21/18 11/21/18 11/21/18 14:01 15:00 16:29 16:51 Temp 98.5 98.5 Pulse 78 Resp 18 B/P (MAP) 140/77 (98) Pulse Ox 97 97 97 97 O2 Delivery Room Air Room Air Room Air Room Air 11/21/18 11/21/18 11/21/18 11/21/18 17:32 19:44 20:00 20:32 Temp 98.6 98.6 Pulse 86 Resp 16 16 B/P (MAP) 125/77 (93) Pulse Ox 97 98 98 O2 Delivery Room Air Room Air Room Air Room Air 11/21/18 11/21/18 11/21/18 11/21/18 21:59 22:57 23:10 23:49 Temp 98.5 98.5 Pulse 84 Resp 16 16 16 16 B/P (MAP) 121/71 (88) Pulse Ox 98 98 97 98 O2 Delivery Room Air Room Air Room Air Room Air 11/22/18 11/22/18 11/22/18 11/22/18 00:50 03:09 03:27 03:28 Temp 97.7 97.7 Pulse 81 Resp 16 16 16 16 B/P (MAP) 136/86 (103) Pulse Ox 98 98 98 96 O2 Delivery Room Air Room Air Room Air Room Air 11/22/18 11/22/18 11/22/18 11/22/18 04:14 05:08 05:43 07:32 Resp 16 16 16 Pulse Ox 96 96 96 96 O2 Delivery Room Air Room Air Room Air Room Air 11/22/18 11/22/18 11/22/18 11/22/18 07:46 08:00 08:05 11:10 Temp 98.1 98.1 Pulse 79 Resp 18 B/P (MAP) 145/97 (113) Pulse Ox 99 99 O2 Delivery Room Air Room Air Room Air Nasal Cannula O2 Flow Rate 2 11/22/18 11/22/18 11/22/18 11/22/18 11:10 11:19 11:25 11:31 Temp 97.5 97.5 Pulse 73 77 Resp 17 17 17 18 B/P (MAP) 129/89 128/75 Pulse Ox 99 100 98 99 O2 Delivery Nasal Cannula Nasal Cannula Nasal Cannula O2 Flow Rate 23.0 2 2.0 11/22/18 11/22/18 11/22/18 11/22/18 11:41 11:41 11:53 11:53 Resp 17 18 15 15 Pulse Ox 98 99 96 95 O2 Delivery Room Air Room Air Room Air 11/22/18 11/22/18 11:54 11:59 Temp 98 98.6 98.0 98.6 Pulse 76 79 Resp 16 18 B/P (MAP) 127/76 133/84 (100) Pulse Ox 96 97 O2 Delivery Room Air Room Air Intake and Output 11/21/18 11/21/18 11/22/18 14:59 22:59 06:59 Intake Total 400 ml 680 ml 750 ml Balance 400 ml 680 ml 750 ml MARILYN CARRENO MD Nov 22, 2018 13:20
[2018-11-22] MEDS: MICAFUNGIN 100 MG in IV DEXTROSE 5% 100ML 100 ML IV SCH (13:49)
[2018-11-22 15:04] VITALS: BP 120/79
[2018-11-22 19:48] VITALS: BP 146/94
[2018-11-22] MEDS: lamoTRIgine 100 MG TABLET. PO SCH (20:16)
[2018-11-22] MEDS: FAMOTIDINE 20 MG TABLET. PO SCH (20:16)
[2018-11-22] MEDS: ZOLPIDEM 5 MG TABLET. PO SCH (20:16)
[2018-11-22 23:00] VITALS: BP 136/76
--- NOTE | 2018-11-22 23:55 | NUR ---
Report Given to Franca for transfer of care. Patient transferred to [address] [place] [address] in stable condition.
[2018-11-23] MEDS: fentaNYL PF VIAL 100 MCG/2 ML VIAL IV PRN ×6 (02:00→23:33)
[2018-11-23 03:00] VITALS: BP 146/80
[2018-11-23] MEDS: HYDROmorphone 2 MG/ML VIAL IVP PRN ×5 (03:45→21:26)
[2018-11-23] MEDS: LOPERAMIDE 2 MG CAPSULE PO PRN ×4 (05:27→23:42)
[2018-11-23 07:00] VITALS: BP 123/79
--- NOTE | 2018-11-23 08:36 | PDOC ---
SURGICAL PROGRESS NOTE Subjective resting no complaints Vital Signs Vital Signs Date Time Temp Pulse Resp B/P (MAP) Pulse Ox O2 Delivery O2 Flow Rate FiO2 11/23/18 08:26 Room Air 11/23/18 06:21 18 99 11/23/18 05:35 2.0 11/23/18 03:00 98.0 75 146/80 (102) 98.0 I&O Intake and Output 11/23/18 06:59 Intake Total 890 ml Balance 890 ml Intake Oral 890 ml # Voids 2 General: Alert, Oriented X3, Cooperative, No acute distress HEENT: Other (dressing dry) Labs Laboratory Tests Test 11/22/18 05:30 White Blood Count 5.4 x10^3/uL (4.0-11.0) Red Blood Count 3.66 x10^6/uL (3.50-5.40) Hemoglobin 10.9 g/dL (12.0-15.5) Hematocrit 32.5 % (36.0-47.0) Mean Corpuscular Volume 89 fL (79-100) Mean Corpuscular Hemoglobin 30 pg (25-35) Mean Corpuscular Hemoglobin Concent 34 g/dL (31-37) Red Cell Distribution Width 14.7 % (11.5-14.5) Platelet Count 193 x10^3/uL (140-400) Neutrophils (%) (Auto) 45 % (31-73) Lymphocytes (%) (Auto) 44 % (24-48) Monocytes (%) (Auto) 8 % (0-9) Eosinophils (%) (Auto) 3 % (0-3) Basophils (%) (Auto) 1 % (0-3) Neutrophils # (Auto) 2.4 x10^3/uL (1.8-7.7) Lymphocytes # (Auto) 2.4 x10^3/uL (1.0-4.8) Monocytes # (Auto) 0.4 x10^3/uL (0.0-1.1) Eosinophils # (Auto) 0.2 x10^3/uL (0.0-0.7) Basophils # (Auto) 0.0 x10^3/uL (0.0-0.2) Sodium Level 144 mmol/L (136-145) Potassium Level 3.8 mmol/L (3.5-5.1) Chloride Level 106 mmol/L (98-107) Carbon Dioxide Level 29 mmol/L (21-32) Anion Gap 9 (6-14) Blood Urea Nitrogen 8 mg/dL (7-20) Creatinine 0.6 mg/dL (0.6-1.0) Estimated GFR (Cockcroft-Gault) 115.1 BUN/Creatinine Ratio 13 (6-20) Glucose Level 90 mg/dL (70-99) Calcium Level 8.9 mg/dL (8.5-10.1) Phosphorus Level 5.2 mg/dL (2.6-4.7) Magnesium Level 1.7 mg/dL (1.8-2.4) Total Bilirubin 0.3 mg/dL (0.2-1.0) Aspartate Amino Transf (AST/SGOT) 27 U/L (15-37) Alanine Aminotransferase (ALT/SGPT) 35 U/L (14-59) Alkaline Phosphatase 144 U/L (46-116) Total Protein 7.3 g/dL (6.4-8.2) Albumin 3.1 g/dL (3.4-5.0) Albumin/Globulin Ratio 0.7 (1.0-1.7) Problem List Problems Medical Problems: (1) Fever Status: Acute (2) Infection of venous access port Status: Acute (3) Sepsis Status: Acute Assessment/Plan IR removed port replacement port timing as per ID/IR no surgical needs, will sign off QUIN SWAIN APRN Nov 23, 2018 08:36
[2018-11-23] MEDS: OLANZapine 5 MG TABLET PO SCH (09:27)
[2018-11-23] MEDS: LACTOBACILLUS RHAMNOSUS GG 1 CAPSULE. PO SCH ×2 (09:27→21:25)
[2018-11-23] MEDS: ENOXAPARIN 40 MG/0.4 ML SYRINGE. SQ SCH (09:28)
--- NOTE | 2018-11-23 10:57 | PDOC ---
Infectious Disease Note Subjective: Subjective Pt is feeling better no fevers has pain at port cath site removal site no sob or cough ROS: ROS Negative otherwise. Vital Signs: Vital Signs Vital Signs Date Time Temp Pulse Resp B/P (MAP) Pulse Ox O2 Delivery O2 Flow Rate FiO2 11/23/18 09:29 Room Air 11/23/18 07:00 97.9 67 14 123/79 (94) 98 97.9 11/23/18 05:35 2.0 Physical Exam: PHYSICAL EXAM GENERAL: The patient is sitting upright in bed, alert, no apparent distress. HEENT: Pupils equally round, normal conjunctivae. Oropharynx pink and moist. NECK: Supple. LUNGS: Clear to auscultation. HEART: S1, S2. ABDOMEN: Soft, nontender with bowel sounds present. EXTREMITIES: No gross edema or cyanosis. SKIN: Warm to touch. No signs of rash. NEUROLOGIC: Alert and oriented x 3. LIJ PowerPort site nontender, without redness or swelling. Medications: Inpatient Meds: Current Medications Medications (Trade) Dose Ordered Sig/Caroline Start Time Stop Time Status Last Admin Dose Admin Daptomycin 300 mg/ Sodium Chloride 50 ml @ 100 mls/hr Q24H 11/20/18 13:00 11/22/18 12:42 100 MLS/HR Diphenhydramine HCl (Benadryl) 25 mg PRN Q6HRS PRN 11/20/18 09:45 Enoxaparin Sodium (Lovenox 40mg Syringe) 40 mg Q24H 11/20/18 10:00 Enoxaparin Sodium (Lovenox Per Pharmacy Prophylaxis Dosing) 1 each PRN DAILY PRN 11/20/18 09:45 Famotidine (Pepcid) 40 mg QHS 11/20/18 21:00 11/22/18 20:17 40 MG Fentanyl Citrate (Fentanyl 2ml Vial) 100 mcg PRN Q2HR PRN 11/22/18 20:45 11/23/18 05:35 100 MCG Fluoxetine HCl (PROzac) 5 mg DAILY 11/21/18 09:00 11/23/18 09:28 5 MG Hydromorphone HCl (Dilaudid) 1.5 mg PRN Q4HRS PRN 11/22/18 20:45 11/23/18 08:26 1.5 MG Ibuprofen (Motrin) 400 mg 1X ONCE 11/19/18 21:30 11/19/18 21:31 DC 11/19/18 21:56 400 MG Lactobacillus Rhamnosus (Culturelle) 1 cap BID 11/21/18 21:00 11/23/18 09:28 1 CAP Lamotrigine (LaMICtal) 100 mg HS 11/20/18 21:15 11/22/18 20:17 100 MG Lidocaine/ Epinephrine (LIDOCAINE 1%-EPI 1:100,000 Multi-Dose) 20 ml 1X ONCE 11/22/18 10:00 11/22/18 10:01 DC 11/22/18 11:00 4 ML Loperamide HCl (Imodium) 4 mg PRN QID PRN 11/20/18 09:45 11/23/18 05:27 4 MG Magnesium Sulfate 50 ml @ 25 mls/hr 1X ONCE 11/19/18 22:30 11/20/18 00:29 DC 11/19/18 23:00 25 MLS/HR Micafungin Sodium 100 mg/Dextrose 100 ml @ 100 mls/hr Q24H 11/20/18 11:30 11/22/18 13:52 100 MLS/HR Midazolam HCl (Versed) 2 mg 1X ONCE 11/22/18 10:00 11/22/18 10:18 DC Morphine Sulfate (Morphine Sulfate) 1 mg PRN Q10MIN PRN 11/22/18 10:30 11/23/18 10:29 DC Nicotine (Nicoderm Cq 21mg) 1 patch PRN DAILY PRN 11/20/18 09:30 11/20/18 11:22 1 PATCH Olanzapine (ZyPREXA) 5 mg DAILY 11/21/18 09:00 11/23/18 09:28 5 MG Ondansetron HCl (Zofran) 4 mg PRN Q6HRS PRN 11/22/18 10:30 11/23/18 10:29 DC Oxycodone HCl (Roxicodone) 15 mg PRN Q4HRS PRN 11/20/18 09:45 Piperacillin Sod/ Tazobactam Sod (Zosyn Per Pharmacy) 1 each PRN DAILY PRN 11/20/18 09:30 11/20/18 11:10 DC Piperacillin Sod/ Tazobactam Sod 4.5 gm/Sodium Chloride 100 ml @ 200 mls/hr Q6HRS 11/20/18 10:00 11/20/18 11:10 DC 11/20/18 10:03 200 MLS/HR Prochlorperazine Edisylate (Compazine) 5 mg PACU PRN PRN 11/22/18 10:30 11/23/18 10:29 DC Propofol 60 ml @ As Directed STK-MED ONCE 11/22/18 10:19 11/22/18 10:20 DC Ringer's Solution 1,000 ml @ 30 mls/hr Q24H 11/22/18 10:17 11/22/18 12:25 DC Sodium Chloride 1,000 ml @ 1,000 mls/hr 1X ONCE 11/19/18 21:00 11/19/18 21:59 DC 11/19/18 22:36 1,000 MLS/HR Zolpidem Tartrate (Ambien) 5 mg HS 11/20/18 21:00 11/22/18 20:17 5 MG Labs: Micro RUN DATE: 11/21/18 PAGE 1 RUN TIME: 835 [facility] [address] [place] [address] Pipo Clay M.D., [employer] PATIENT: DENNIS MEAD ACCT: [id number] LOC: [address] [place] [address] U: [id number] AGE/SX: 33/F ROOM: 652 RE11/19/[address]: MARILYN CARRENO MD : 1985 BED: 1 DIS: STATUS: ADM IN TLOC: SPEC #: [id number] SUJATA: 11/19/18 STATUS: TRAN HARRELL #: [id number] RECD: 11/19/[address]: GYPSY ANTHONY DO SOURCE: BLOOD ENTR: 11/19/18-2050 [facility] DR: MILLIE VILLAREAL MD [facility]: ORDERED: BCULT Procedure Result BLOOD CULTURE Final GRAM POSSOTIVE COCCI IN CLUSTERS 2 SETS DRAWN, 4 OF 4 POSITIVE CALLED TO JAIDEN MITCHELL RN IN 6S BY Evans QUIJANO,11/21/18,0830 SPECIMEN SENDING TO [employer] FOR FURTHER WORK UP Objective: Assessment: 1. Gram-positive cocci bacteremia (4 of 4 bottles) from 11/19. Final NATE pending, coag neg staph 2. Possible infected at [employer]. Port removed 11/22,cath tip pending 3. Fever.resolved 4. Leukocytosis.resolved 5. 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 6. Short bowel syndrome, on chronic TPN. 7. History of methicillin-resistant Staphylococcus aureus. 8. History of Clostridium difficile. Plan: Plan of Care Continue dapto and micafungin wbc has improved Monitor for ab toxicities/side effects Repeat BC 11/21 negative so far Await GPC ID/susceptibilities d/w nursing staff VINOD HERNANDEZ MD Nov 23, 2018 10:57
[2018-11-23 11:00] VITALS: BP 135/80
[2018-11-23] MEDS: MICAFUNGIN 100 MG in IV DEXTROSE 5% 100ML 100 ML IV SCH (11:08)
--- NOTE | 2018-11-23 12:22 | PDOC ---
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 HEENT: Pupils equally round, normal conjunctivae. Oropharynx pink and moist. NECK: Supple. LUNGS: Clear to auscultation. HEART: S1, S2. ABDOMEN: Soft, nontender with bowel sounds present. EXTREMITIES: No gross edema or cyanosis. SKIN: Warm to touch. No signs of rash. NEUROLOGIC: Alert and oriented x 3. LIJ PowerPort site nontender, without redness or swelling. General: Alert, Oriented X3, Cooperative, No acute distress Heart: Regular rate, Normal S1 Abdomen: Soft, No tenderness, Other (well healed incision) Extremities: No clubbing, No cyanosis Skin: No rashes, No breakdown Review of Systems Review of Systems no cp, soa, abd pain, n,v, always loose stools, no fever, rest of 14 pt neg Assessment and Plan Assessmemt and Plan Problems Medical Problems: (1) Fever Status: Acute (2) Infection of venous access port Status: Acute (3) Sepsis Status: Acute Comment Review of Relevant I have reviewed the following items noni (where applicable) has been applied. Labs Laboratory Tests Test 11/22/18 05:30 White Blood Count 5.4 x10^3/uL (4.0-11.0) Red Blood Count 3.66 x10^6/uL (3.50-5.40) Hemoglobin 10.9 g/dL (12.0-15.5) Hematocrit 32.5 % (36.0-47.0) Mean Corpuscular Volume 89 fL (79-100) Mean Corpuscular Hemoglobin 30 pg (25-35) Mean Corpuscular Hemoglobin Concent 34 g/dL (31-37) Red Cell Distribution Width 14.7 % (11.5-14.5) Platelet Count 193 x10^3/uL (140-400) Neutrophils (%) (Auto) 45 % (31-73) Lymphocytes (%) (Auto) 44 % (24-48) Monocytes (%) (Auto) 8 % (0-9) Eosinophils (%) (Auto) 3 % (0-3) Basophils (%) (Auto) 1 % (0-3) Neutrophils # (Auto) 2.4 x10^3/uL (1.8-7.7) Lymphocytes # (Auto) 2.4 x10^3/uL (1.0-4.8) Monocytes # (Auto) 0.4 x10^3/uL (0.0-1.1) Eosinophils # (Auto) 0.2 x10^3/uL (0.0-0.7) Basophils # (Auto) 0.0 x10^3/uL (0.0-0.2) Sodium Level 144 mmol/L (136-145) Potassium Level 3.8 mmol/L (3.5-5.1) Chloride Level 106 mmol/L (98-107) Carbon Dioxide Level 29 mmol/L (21-32) Anion Gap 9 (6-14) Blood Urea Nitrogen 8 mg/dL (7-20) Creatinine 0.6 mg/dL (0.6-1.0) Estimated GFR (Cockcroft-Gault) 115.1 BUN/Creatinine Ratio 13 (6-20) Glucose Level 90 mg/dL (70-99) Calcium Level 8.9 mg/dL (8.5-10.1) Phosphorus Level 5.2 mg/dL (2.6-4.7) Magnesium Level 1.7 mg/dL (1.8-2.4) Total Bilirubin 0.3 mg/dL (0.2-1.0) Aspartate Amino Transf (AST/SGOT) 27 U/L (15-37) Alanine Aminotransferase (ALT/SGPT) 35 U/L (14-59) Alkaline Phosphatase 144 U/L (46-116) Total Protein 7.3 g/dL (6.4-8.2) Albumin 3.1 g/dL (3.4-5.0) Albumin/Globulin Ratio 0.7 (1.0-1.7) Microbiology 11/21/18 Blood Culture - Preliminary, Resulted NO GROWTH AFTER 2 DAYS Medications Current Medications Sodium Chloride 1,000 ml @ 1,000 mls/hr 1X ONCE IV Last administered on 11/19/18 21:56; Start 11/19/18 at 21:00; Stop 11/19/18 at 21:59; Status DC Piperacillin Sod/ Tazobactam Sod 4.5 gm/Sodium Chloride 100 ml @ 200 mls/hr 1X ONCE IV Last administered on 11/19/18at 22:03; Start 11/19/18 at 21:30; Stop 11/19/18 at 21:59; Status DC Sodium Chloride 1,000 ml @ 1,000 mls/hr 1X ONCE IV Last administered on 11/19/18at 22:36; Start 11/19/18 at 21:00; Stop 11/19/18 at 21:59; Status DC Ibuprofen (Motrin) 400 mg 1X ONCE PO Last administered on 11/19/18at 21:56; Start 11/19/18 at 21:30; Stop 11/19/18 at 21:31; Status DC Fentanyl Citrate (Fentanyl 2ml Vial) 50 mcg 1X ONCE IV Last administered on 11/19/18at 22:03; Start 11/19/18 at 22:00; Stop 11/19/18 at 22:01; Status DC Fentanyl Citrate (Fentanyl 2ml Vial) 100 mcg STK-MED ONCE .ROUTE ; Start 11/19/18 at 21:53; Stop 11/19/18 at 21:53; Status DC Magnesium Sulfate 50 ml @ 25 mls/hr 1X ONCE IV Last administered on 11/19/18at 23:00; Start 11/19/18 at 22:30; Stop 11/20/18 at 00:29; Status DC Fentanyl Citrate (Fentanyl 2ml Vial) 50 mcg 1X ONCE IV Last administered on 11/19/18at 23:00; Start 11/19/18 at 22:45; Stop 11/19/18 at 22:46; Status DC Ondansetron HCl (Zofran) 4 mg PRN Q8HRS PRN IV NAUSEA/VOMITING Last administered on 11/19/18at 23:00; Start 11/19/18 at 22:45; Stop 11/20/18 at 22:44; Status DC Fentanyl Citrate (Fentanyl 2ml Vial) 75 mcg PRN Q2HR PRN IV MODERATE PAIN Last administered on 11/22/18 18:23; Start 11/19/18 at 22:45; Stop 11/22/18 at 20:48; Status DC Hydromorphone HCl (Dilaudid) 1 mg PRN Q4HRS PRN IVP SEVERE PAIN Last administ ered on 11/22/18 20:21; Start 11/20/18 at 09:15; Stop 11/22/18 at 20:48; Status DC Fluoxetine HCl (PROzac) 5 mg DAILY PEG Last administered on 11/23/18 09:28; Start 11/21/18 at 09:00 Lamotrigine (LaMICtal) 100 mg DAILY PO ; Start 11/21/18 at 09:00; Stop 11/20/18 at 21:05; Status DC Nicotine (Nicoderm Cq 21mg) 1 patch PRN DAILY PRN TD SMOKING CESSATION Last administered on 11/20/18at 11:22; Start 11/20/18 at 09:30 Olanzapine (ZyPREXA) 5 mg DAILY PO Last administered on 11/23/18 09:28; Start 11/21/18 at 09:00 Famotidine (Pepcid) 40 mg QHS PO Last administered on 11/22/18at 20:17; Start 11/20/18 at 21:00 Loperamide HCl (Imodium) 4 mg PRN QID PRN PO DIARRHEA Last administered on 11/23/18 05:27; Start 11/20/18 at 09:45 Piperacillin Sod/ Tazobactam Sod (Zosyn Per Pharmacy) 1 each PRN DAILY PRN MC SEE COMMENTS; Start 11/20/18 at 09:30; Stop 11/20/18 at 11:10; Status DC Piperacillin Sod/ Tazobactam Sod 4.5 gm/Sodium Chloride 100 ml @ 200 mls/hr Q6HRS IV Last administered on 11/20/18at 10:03; Start 11/20/18 at 10:00; Stop 11/20/18 at 11:10; Status DC Zolpidem Tartrate (Ambien) 5 mg HS PO Last administered on 11/22/18at 20:17; Start 11/20/18 at 21:00 Diphenhydramine HCl (Benadryl) 25 mg PRN Q6HRS PRN PO ITCHING; Start 11/20/18 at 09:45 Oxycodone HCl (Roxicodone) 15 mg PRN Q4HRS PRN PO PAIN; Start 11/20/18 at 09:45 Enoxaparin Sodium (Lovenox Per Pharmacy Prophylaxis Dosing) 1 each PRN DAILY PRN MC SEE COMMENTS; Start 11/20/18 at 09:45 Enoxaparin Sodium (Lovenox 40mg Syringe) 40 mg Q24H SQ ; Start 11/20/18 at 10:00 Daptomycin 300 mg/ Sodium Chloride 50 ml @ 100 mls/hr Q24H IV Last administered on 11/22/18at 12:42; Start 11/20/18 at 13:00 Micafungin Sodium 100 mg/Dextrose 100 ml @ 100 mls/hr Q24H IV Last administered on 11/23/18at 11:09; Start 11/20/18 at 11:30 Lamotrigine (LaMICtal) 100 mg STK-MED ONCE .ROUTE ; Start 11/20/18 at 21:03; Stop 11/20/18 at 21:03; Status DC Lamotrigine (LaMICtal) 100 mg HS PO Last administered on 11/22/18at 20:17; Start 11/20/18 at 21:15 Hydromorphone HCl (Dilaudid) 1 mg 1X ONCE IVP Last administered on 11/21/18at 09:40; Start 11/21/18 at 09:30; Stop 11/21/18 at 09:31; Status DC Lactobacillus Rhamnosus (Culturelle) 1 cap BID PO Last administered on 11/23/18at 09:28; Start 11/21/18 at 21:00 Midazolam HCl (Versed) 2 mg STK-MED ONCE .ROUTE ; Start 11/22/18 at 09:47; Stop 11/22/18 at 09:48; Status DC Fentanyl Citrate (Fentanyl 2ml Vial) 100 mcg STK-MED ONCE .ROUTE ; Start 11/22/18 at 09:47; Stop 11/22/18 at 09:48; Status DC Lidocaine/ Epinephrine (LIDOCAINE 1%-EPI 1:100,000 Multi-Dose) 20 ml STK-MED ONCE .ROUTE ; Start 11/22/18 at 09:48; Stop 11/22/18 at 09:48; Status DC Midazolam HCl (Versed) 2 mg 1X ONCE IV ; Start 11/22/18 at 10:00; Stop 11/22/18 at 10:18; Status DC Fentanyl Citrate (Fentanyl 2ml Vial) 100 mcg 1X ONCE IV ; Start 11/22/18 at 10:00; Stop 11/22/18 at 10:18; Status DC Lidocaine/ Epinephrine (LIDOCAINE 1%-EPI 1:100,000 Multi-Dose) 20 ml 1X ONCE INJ Last administered on 11/22/18at 11:00; Start 11/22/18 at 10:00; Stop 11/22/18 at 10:01; Status DC Ondansetron HCl (Zofran) 4 mg PRN Q6HRS PRN IV NAUSEA/VOMITING; Start 11/22/18 at 10:30; Stop 11/23/18 at 10:29; Status DC Fentanyl Citrate (Fentanyl 2ml Vial) 25 mcg PRN Q5MIN PRN IV MILD PAIN 1-3; Start 11/22/18 at 10:30; Stop 11/22/18 at 12:25; Status DC Fentanyl Citrate (Fentanyl 2ml Vial) 50 mcg PRN Q5MIN PRN IV MODERATE TO SEVERE PAIN Last administered on 11/22/18at 11:53; Start 11/22/18 at 10:30; Stop 11/22/18 at 12:25; Status DC Morphine Sulfate (Morphine Sulfate) 1 mg PRN Q10MIN PRN IV SEVERE PAIN 7-10; Start 11/22/18 at 10:30; Stop 11/23/18 at 10:29; Status DC Ringer's Solution 1,000 ml @ 30 mls/hr Q24H IV ; Start 11/22/18 at 10:17; Stop 11/22/18 at 12:25; Status DC Hydromorphone HCl (Dilaudid) 0.5 mg PRN Q10MIN PRN IV SEV PAIN, Second choice Last administered on 11/22/18at 16:18; Start 11/22/18 at 10:30; Stop 11/23/18 at 10:29; Status DC Prochlorperazine Edisylate (Compazine) 5 mg PACU PRN PRN IV NAUSEA, MRX1; Start 11/22/18 at 10:30; Stop 11/23/18 at 10:29; Status DC Propofol 60 ml @ As Directed STK-MED ONCE IV ; Start 11/22/18 at 10:19; Stop 11/22/18 at 10:20; Status DC Fentanyl Citrate (Fentanyl 2ml Vial) 100 mcg STK-MED ONCE .ROUTE ; Start 11/22/18 at 11:37; Stop 11/22/18 at 11:38; Status DC Fentanyl Citrate (Fentanyl 2ml Vial) 100 mcg PRN Q2HR PRN IV MODERATE PAIN Last administered on 11/23/18at 11:09; Start 11/22/18 at 20:45 Hydromorphone HCl (Dilaudid) 1.5 mg PRN Q4HRS PRN IVP SEVERE PAIN Last administered on 11/23/18at 08:26; Start 11/22/18 at 20:45 Active Scripts Active Reported NICODERM CQ 21mg (Nicotine) 1 Each Patch.td24 1 Patch TD PRN DAILY PRN Prozac (Fluoxetine Hcl) 10 Mg Capsule 5 Mg PO DAILY Famotidine 40 Mg Tablet 40 Mg PO HS Fluoxetine Hcl 20 Mg Tablet 20 Mg PO DAILY Olanzapine 5 Mg Tablet 5 Mg PO DAILY Oxycodone Hcl Immed.release (Oxycodone Hcl) 15 Mg Tablet 15 Mg PO QID Lamictal (Lamotrigine) 100 Mg Tablet 1 Tab PO DAILY Loperamide (Loperamide Hcl) 2 Mg Tablet 4 Mg PO PRN QID PRN Vitals/I & O Vital Sign - Last 24 Hours 11/22/18 11/22/18 11/22/18 11/22/18 13:52 15:04 15:45 16:18 Temp 98.2 98.2 Pulse 74 Resp 18 B/P (MAP) 120/79 (93) Pulse Ox 97 100 100 100 O2 Delivery Nasal Cannula Room Air Nasal Cannula Nasal Cannula O2 Flow Rate 2.0 2.0 2.0 11/22/18 11/22/18 11/22/189/19 17:05 18:23 19:16 19:48 Temp 98.6 98.6 Pulse 81 Resp 16 18 B/P (MAP) 146/94 (111) Pulse Ox 100 100 100 99 O2 Delivery Nasal Cannula Nasal Cannula Room Air O2 Flow Rate 2.0 2.0 11/22/18 11/22/18 11/22/18 11/22/18 20:00 20:21 22:05 22:43 Resp 16 18 16 Pulse Ox 99 99 99 O2 Delivery Room Air Nasal Cannula Nasal Cannula Room Air 11/22/18 11/22/18 11/23/18 11/23/18 23:00 23:55 00:44 02:04 Temp 97.0 97.0 Pulse 76 Resp 18 16 18 18 B/P (MAP) 136/76 (96) Pulse Ox 99 99 99 O2 Delivery Room Air Room Air Room Air Room Air O2 Flow Rate 2.0 11/23/18 11/23/18 11/23/18 11/23/18 02:47 03:00 03:45 04:19 Temp 98.0 98.0 Pulse 75 Resp 18 18 18 18 B/P (MAP) 146/80 (102) Pulse Ox 99 96 99 99 O2 Delivery Room Air Room Air Room Air Room Air 11/23/18 11/23/18 11/23/18 11/23/18 05:35 06:21 07:00 08:00 Temp 97.9 97.9 Pulse 67 Resp 18 18 14 B/P (MAP) 123/79 (94) Pulse Ox 99 99 98 O2 Delivery Room Air Room Air Room Air Room Air O2 Flow Rate 2.0 11/23/18 11/23/18 11/23/18 11/23/18 08:26 09:29 11:00 11:09 Temp 97.8 97.8 Pulse 79 Resp 16 B/P (MAP) 135/80 (98) Pulse Ox 99 O2 Delivery Room Air Room Air Room Air Room Air Intake and Output 11/22/18 11/22/18 11/23/18 14:59 22:59 06:59 Intake Total 220 ml 370 ml 300 ml Balance 220 ml 370 ml 300 ml ALBERT SAINI MD Nov 23, 2018 12:22
[2018-11-23] MEDS: DAPTOMYCIN IV SCH (12:55)
[2018-11-23] MEDS: NORMAL SALINE IV SCH (12:55)
[2018-11-23 15:00] VITALS: BP 133/85
[2018-11-23 19:00] VITALS: BP 136/93
[2018-11-23] MEDS: lamoTRIgine 100 MG TABLET. PO SCH (21:25)
[2018-11-23] MEDS: FAMOTIDINE 20 MG TABLET. PO SCH (21:25)
[2018-11-23] MEDS: ZOLPIDEM 5 MG TABLET. PO SCH (21:27)
[2018-11-23 23:00] VITALS: BP 137/71
[2018-11-24] MEDS: HYDROmorphone 2 MG/ML VIAL IVP PRN ×6 (02:02→22:51)
[2018-11-24 03:00] VITALS: BP 157/83
[2018-11-24] MEDS: fentaNYL PF VIAL 100 MCG/2 ML VIAL IV PRN ×5 (04:22→20:55)
[2018-11-24 07:00] VITALS: BP 152/80
[2018-11-24] MEDS: ENOXAPARIN 40 MG/0.4 ML SYRINGE. SQ SCH (07:23)
[2018-11-24] MEDS: LACTOBACILLUS RHAMNOSUS GG 1 CAPSULE. PO SCH ×2 (07:44→20:54)
[2018-11-24] MEDS: OLANZapine 5 MG TABLET PO SCH (07:44)
[2018-11-24] MEDS: LOPERAMIDE 2 MG CAPSULE PO PRN ×4 (07:54→23:35)
--- NOTE | 2018-11-24 10:41 | PDOC ---
PROGRESS NOTES Chief Complaint Chief Complaint IMPRESSION sepsis Bacteremia, 4/4 GPC BLD CULT RESULT 1 Final Comment Coagulase negative Staphylococcus species. Gram-positive cocci bacteremia (4 of 4 bottles) from 11/19. coag neg staph ,MSSE infected at Power[employer]. 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 HEENT: Pupils equally round, normal conjunctivae. Oropharynx pink and moist. NECK: Supple. LUNGS: Clear to auscultation. HEART: S1, S2. ABDOMEN: Soft, nontender with bowel sounds present. EXTREMITIES: No gross edema or cyanosis. SKIN: Warm to touch. No signs of rash. NEUROLOGIC: Alert and oriented x 3. LIJ [employer]Port site nontender, without redness or swelling. General: Alert, Oriented X3, Cooperative, No acute distress Heart: Regular rate, Normal S1 Lungs: Clear Abdomen: Normal bowel sounds, Soft, No tenderness, Other (well healed incision) Extremities: No clubbing, No cyanosis Skin: No rashes, No breakdown Labs LABS BLOOD CULTURE LC Final Preliminary report Final report BLD CULT RESULT 1 Final Comment Coagulase negative Staphylococcus species. Performed at: - [facility] [id number] [facility] [address], [place], [place] [id number] [employer] Up Operator: SULEIMAN Goldsmith MD, Phone: [phone] Staphylococcus epidermidis Based on susceptibility to oxacillin this isolate would be susceptible to: *Penicillinase-stable penicillins, such as: Cloxacillin, Dicloxacillin, Nafcillin *Beta-lactam combination agents, such as: Amoxicillin-clavulanic acid, Ampicillin-sulbactam, Piperacillin-tazobactam *Oral cephems, such as: Cefaclor, Cefdinir, Cefpodoxime, Cefprozil, Cefuroxime, Cephalexin, Loracarbef *Parenteral cephems, such as: Cefazolin, Cefepime, Cefotaxime, Cefotetan, Ceftaroline, Ceftizoxime, Ceftriaxone, Cefuroxime *Carbapenems, such as: Doripenem, Ertapenem, Imipenem, Meropenem ANTIMICROBIAL SUSCEPTIBILITY Final Comment S = Susceptible; I = Intermediate; R = Resistant P = Positive; N = Negative MICS are expressed in micrograms per mL Antibiotic RSLT#1 RSLT#2 RSLT#3 RSLT#4 Ciprofloxacin R =4 Clindamycin S<=0.25 Erythromycin S<=0.25 Gentamicin S<=0.5 Assessment and Plan Assessmemt and Plan Problems Medical Problems: (1) Fever Status: Acute (2) Infection of venous access port Status: Acute (3) Sepsis Status: Acute Comment Review of Relevant I have reviewed the following items noni (where applicable) has been applied. Labs Microbiology 11/22/18 Aerobic Culture, Resulted Pending 11/22/18 Aerobic Culture Result 1 (NATE), Resulted Pending 11/22/18 Gram Stain - Final, Resulted 11/22/18 Gram Stain Result 1 (NATE) - Final, Resulted 11/22/18 Gram Stain Result 2 (NATE) - Final, Resulted 11/21/18 Blood Culture - Preliminary, Resulted NO GROWTH AFTER 2 DAYS Medications Current Medications Sodium Chloride 1,000 ml @ 1,000 mls/hr 1X ONCE IV Last administered on 11/19/18at 21:56; Start 11/19/18 at 21:00; Stop 11/19/18 at 21:59; Status DC Piperacillin Sod/ Tazobactam Sod 4.5 gm/Sodium Chloride 100 ml @ 200 mls/hr 1X ONCE IV Last administered on 11/19/18at 22:03; Start 11/19/18 at 21:30; Stop 11/19/18 at 21:59; Status DC Sodium Chloride 1,000 ml @ 1,000 mls/hr 1X ONCE IV Last administered on 11/19/18at 22:36; Start 11/19/18 at 21:00; Stop 11/19/18 at 21:59; Status DC Ibuprofen (Motrin) 400 mg 1X ONCE PO Last administered on 11/19/18at 21:56; Start 11/19/18 at 21:30; Stop 11/19/18 at 21:31; Status DC Fentanyl Citrate (Fentanyl 2ml Vial) 50 mcg 1X ONCE IV Last administered on 11/19/18at 22:03; Start 11/19/18 at 22:00; Stop 11/19/18 at 22:01; Status DC Fentanyl Citrate (Fentanyl 2ml Vial) 100 mcg STK-MED ONCE .ROUTE ; Start 11/19/18 at 21:53; Stop 11/19/18 at 21:53; Status DC Magnesium Sulfate 50 ml @ 25 mls/hr 1X ONCE IV Last administered on 11/19/18at 23:00; Start 11/19/18 at 22:30; Stop 11/20/18 at 00:29; Status DC Fentanyl Citrate (Fentanyl 2ml Vial) 50 mcg 1X ONCE IV Last administered on 11/19/18 23:00; Start 11/19/18 at 22:45; Stop 11/19/18 at 22:46; Status DC Ondansetron HCl (Zofran) 4 mg PRN Q8HRS PRN IV NAUSEA/VOMITING Last administered on 11/19/18 23:00; Start 11/19/18 at 22:45; Stop 11/20/18 at 22:44; Status DC Fentanyl Citrate (Fentanyl 2ml Vial) 75 mcg PRN Q2HR PRN IV MODERATE PAIN Last administered on 11/22/18 18:23; Start 11/19/18 at 22:45; Stop 11/22/18 at 20:48; Status DC Hydromorphone HCl (Dilaudid) 1 mg PRN Q4HRS PRN IVP SEVERE PAIN Last administered on 11/22/18 20:21; Start 11/20/18 at 09:15; Stop 11/22/18 at 20:48; Status DC Fluoxetine HCl (PROzac) 5 mg DAILY PEG Last administered on 9/11/19at 07:47; Start 11/21/18 at 09:00 Lamotrigine (LaMICtal) 100 mg DAILY PO ; Start 11/21/18 at 09:00; Stop 11/20/18 at 21:05; Status DC Nicotine (Nicoderm Cq 21mg) 1 patch PRN DAILY PRN TD SMOKING CESSATION Last administered on 11/20/18at 11:22; Start 11/20/18 at 09:30 Olanzapine (ZyPREXA) 5 mg DAILY PO Last administered on 11/24/18at 07:47; Start 11/21/18 at 09:00 Famotidine (Pepcid) 40 mg QHS PO Last administered on 11/23/18at 21:26; Start 11/20/18 at 21:00 Loperamide HCl (Imodium) 4 mg PRN QID PRN PO DIARRHEA Last administered on 11/24/18at 07:54; Start 11/20/18 at 09:45 Piperacillin Sod/ Tazobactam Sod (Zosyn Per Pharmacy) 1 each PRN DAILY PRN MC SEE COMMENTS; Start 11/20/18 at 09:30; Stop 11/20/18 at 11:10; Status DC Piperacillin Sod/ Tazobactam Sod 4.5 gm/Sodium Chloride 100 ml @ 200 mls/hr Q6HRS IV Last administered on 11/20/18at 10:03; Start 11/20/18 at 10:00; Stop 11/20/18 at 11:10; Status DC Zolpidem Tartrate (Ambien) 5 mg HS PO Last administered on 11/23/18at 21:27; Start 11/20/18 at 21:00 Diphenhydramine HCl (Benadryl) 25 mg PRN Q6HRS PRN PO ITCHING; Start 11/20/18 at 09:45 Oxycodone HCl (Roxicodone) 15 mg PRN Q4HRS PRN PO PAIN; Start 11/20/18 at 09:45 Enoxaparin Sodium (Lovenox Per Pharmacy Prophylaxis Dosing) 1 each PRN DAILY PRN MC SEE COMMENTS; Start 11/20/18 at 09:45 Enoxaparin Sodium (Lovenox 40mg Syringe) 40 mg Q24H SQ ; Start 11/20/18 at 10:00 Daptomycin 300 mg/ Sodium Chloride 50 ml @ 100 mls/hr Q24H IV Last administered on 11/23/18at 12:56; Start 11/20/18 at 13:00 Micafungin Sodium 100 mg/Dextrose 100 ml @ 100 mls/hr Q24H IV Last administered on 11/23/18at 11:09; Start 11/20/18 at 11:30 Lamotrigine (LaMICtal) 100 mg STK-MED ONCE .ROUTE ; Start 11/20/18 at 21:03; Stop 11/20/18 at 21:03; Status DC Lamotrigine (LaMICtal) 100 mg HS PO Last administered on 11/23/18at 21:26; Start 11/20/18 at 21:15 Hydromorphone HCl (Dilaudid) 1 mg 1X ONCE IVP Last administered on 11/21/18at 09:40; Start 11/21/18 at 09:30; Stop 11/21/18 at 09:31; Status DC Lactobacillus Rhamnosus (Culturelle) 1 cap BID PO Last administered on 11/24/18at 07:47; Start 11/21/18 at 21:00 Midazolam HCl (Versed) 2 mg STK-MED ONCE .ROUTE ; Start 11/22/18 at 09:47; Stop 11/22/18 at 09:48; Status DC Fentanyl Citrate (Fentanyl 2ml Vial) 100 mcg STK-MED ONCE .ROUTE ; Start 11/22/18 at 09:47; Stop 11/22/18 at 09:48; Status DC Lidocaine/ Epinephrine (LIDOCAINE 1%-EPI 1:100,000 Multi-Dose) 20 ml STK-MED ONCE .ROUTE ; Start 11/22/18 at 09:48; Stop 11/22/18 at 09:48; Status DC Midazolam HCl (Versed) 2 mg 1X ONCE IV ; Start 11/22/18 at 10:00; Stop 11/22/18 at 10:18; Status DC Fentanyl Citrate (Fentanyl 2ml Vial) 100 mcg 1X ONCE IV ; Start 11/22/18 at 10:00; Stop 11/22/18 at 10:18; Status DC Lidocaine/ Epinephrine (LIDOCAINE 1%-EPI 1:100,000 Multi-Dose) 20 ml 1X ONCE INJ Last administered on 11/22/18at 11:00; Start 11/22/18 at 10:00; Stop 11/22/18 at 10:01; Status DC Ondansetron HCl (Zofran) 4 mg PRN Q6HRS PRN IV NAUSEA/VOMITING; Start 11/22/18 at 10:30; Stop 11/23/18 at 10:29; Status DC Fentanyl Citrate (Fentanyl 2ml Vial) 25 mcg PRN Q5MIN PRN IV MILD PAIN 1-3; Start 11/22/18 at 10:30; Stop 11/22/18 at 12:25; Status DC Fentanyl Citrate (Fentanyl 2ml Vial) 50 mcg PRN Q5MIN PRN IV MODERATE TO SEVERE PAIN Last administered on 11/22/18at 11:53; Start 11/22/18 at 10:30; Stop 11/22/18 at 12:25; Status DC Morphine Sulfate (Morphine Sulfate) 1 mg PRN Q10MIN PRN IV SEVERE PAIN 7-10; Start 11/22/18 at 10:30; Stop 11/23/18 at 10:29; Status DC Ringer's Solution 1,000 ml @ 30 mls/hr Q24H IV ; Start 11/22/18 at 10:17; Stop 11/22/18 at 12:25; Status DC Hydromorphone HCl (Dilaudid) 0.5 mg PRN Q10MIN PRN IV SEV PAIN, Second choice Last administered on 11/22/18at 16:18; Start 11/22/18 at 10:30; Stop 11/23/18 at 10:29; Status DC Prochlorperazine Edisylate (Compazine) 5 mg PACU PRN PRN IV NAUSEA, MRX1; Start 11/22/18 at 10:30; Stop 11/23/18 at 10:29; Status DC Propofol 60 ml @ As Directed STK-MED ONCE IV ; Start 11/22/18 at 10:19; Stop 11/22/18 at 10:20; Status DC Fentanyl Citrate (Fentanyl 2ml Vial) 100 mcg STK-MED ONCE .ROUTE ; Start 11/22/18 at 11:37; Stop 11/22/18 at 11:38; Status DC Fentanyl Citrate (Fentanyl 2ml Vial) 100 mcg PRN Q2HR PRN IV MODERATE PAIN Last administered on 11/24/18at 07:47; Start 11/22/18 at 20:45 Hydromorphone HCl (Dilaudid) 1.5 mg PRN Q4HRS PRN IVP SEVERE PAIN Last administered on 11/24/18at 06:31; Start 11/22/18 at 20:45 Active Scripts Active Reported NICODERM CQ 21mg (Nicotine) 1 Each Patch.td24 1 Patch TD PRN DAILY PRN Prozac (Fluoxetine Hcl) 10 Mg Capsule 5 Mg PO DAILY Famotidine 40 Mg Tablet 40 Mg PO HS Fluoxetine Hcl 20 Mg Tablet 20 Mg PO DAILY Olanzapine 5 Mg Tablet 5 Mg PO DAILY Oxycodone Hcl Immed.release (Oxycodone Hcl) 15 Mg Tablet 15 Mg PO QID Lamictal (Lamotrigine) 100 Mg Tablet 1 Tab PO DAILY Loperamide (Loperamide Hcl) 2 Mg Tablet 4 Mg PO PRN QID PRN Vitals/I & O Vital Sign - Last 24 Hours 11/23/18 11/23/18 11/23/18 11/23/18 11:00 11:09 12:56 13:12 Temp 97.8 97.8 Pulse 79 Resp 16 B/P (MAP) 135/80 (98) Pulse Ox 99 O2 Delivery Room Air Room Air Room Air Room Air 11/23/18 11/23/18 11/23/18 11/23/18 14:18 15:00 15:40 17:10 Temp 97.7 97.7 Pulse 75 Resp 16 B/P (MAP) 133/85 (101) Pulse Ox 97 O2 Delivery Room Air Room Air Room Air Room Air 11/23/18 11/23/18 11/23/18 11/23/18 17:10 18:12 18:30 19:00 Temp 98.4 98.4 Pulse 78 Resp 18 B/P (MAP) 136/93 (107) Pulse Ox 97 O2 Delivery Room Air Room Air Room Air Room Air 11/23/18 11/23/18 11/23/18 11/23/18 20:00 20:31 21:26 22:29 Pulse Ox 97 97 97 O2 Delivery Room Air Room Air Room Air Room Air O2 Flow Rate 2.0 2.0 2.0 11/23/18 11/23/18 11/24/18 11/24/18 23:00 23:39 01:33 02:02 Temp 98.7 98.7 Pulse 80 Resp 18 B/P (MAP) 137/71 (93) Pulse Ox 96 96 96 96 O2 Delivery Room Air Room Air Room Air Room Air O2 Flow Rate 2.0 2.0 2.0 11/24/18 11/24/18 11/24/18 11/24/18 03:00 03:27 04:22 05:06 Temp 98.0 98.0 Pulse 73 Resp 18 B/P (MAP) 157/83 (107) Pulse Ox 93 96 93 93 O2 Delivery Room Air Room Air Room Air Room Air O2 Flow Rate 2.0 2.0 2.0 11/24/18 11/24/18 11/24/18 11/24/18 06:31 07:00 07:06 07:47 Temp 98.0 98.0 Pulse 79 Resp 18 20 20 B/P (MAP) 152/80 (104) Pulse Ox 93 95 93 93 O2 Delivery Room Air Room Air Room Air Room Air O2 Flow Rate 2.0 2.0 11/24/18 11/24/18 08:00 08:25 Resp 20 Pulse Ox 93 O2 Delivery Room Air Room Air ANUPAMA QUINONES MD Nov 24, 2018 10:41
[2018-11-24] MEDS: MICAFUNGIN 100 MG in IV DEXTROSE 5% 100ML 100 ML IV SCH (10:43)
--- NOTE | 2018-11-24 10:54 | PDOC ---
Infectious Disease Note Subjective: Subjective Pt is feeling better no fevers or pain port cath site removal site no sob or cough ROS: ROS Negative otherwise. Vital Signs: Vital Signs Vital Signs Date Time Temp Pulse Resp B/P (MAP) Pulse Ox O2 Delivery O2 Flow Rate FiO2 11/24/18 10:48 20 93 Room Air 11/24/18 07:47 2.0 11/24/18 07:00 98.0 79 152/80 (104) 98.0 Physical Exam: PHYSICAL EXAM GENERAL: The patient is sitting upright in bed, alert, no apparent distress. HEENT: Pupils equally round, normal conjunctivae. Oropharynx pink and moist. NECK: Supple. LUNGS: Clear to auscultation. HEART: S1, S2. ABDOMEN: Soft, nontender with bowel sounds present. EXTREMITIES: No gross edema or cyanosis. SKIN: Warm to touch. No signs of rash. NEUROLOGIC: Alert and oriented x 3. LIJ PowerPort site nontender, without redness or swelling. Medications: Inpatient Meds: Current Medications Medications (Trade) Dose Ordered Sig/Caroline Start Time Stop Time Status Last Admin Dose Admin Daptomycin 300 mg/ Sodium Chloride 50 ml @ 100 mls/hr Q24H 11/20/18 13:00 11/23/18 12:56 100 MLS/HR Diphenhydramine HCl (Benadryl) 25 mg PRN Q6HRS PRN 11/20/18 09:45 Enoxaparin Sodium (Lovenox 40mg Syringe) 40 mg Q24H 11/20/18 10:00 Enoxaparin Sodium (Lovenox Per Pharmacy Prophylaxis Dosing) 1 each PRN DAILY PRN 11/20/18 09:45 Famotidine (Pepcid) 40 mg QHS 11/20/18 21:00 11/23/18 21:26 40 MG Fentanyl Citrate (Fentanyl 2ml Vial) 100 mcg PRN Q2HR PRN 11/22/18 20:45 11/24/18 07:47 100 MCG Fluoxetine HCl (PROzac) 5 mg DAILY 11/21/18 09:00 11/24/18 07:47 5 MG Hydromorphone HCl (Dilaudid) 1.5 mg PRN Q4HRS PRN 11/22/18 20:45 11/24/18 10:48 1.5 MG Ibuprofen (Motrin) 400 mg 1X ONCE 11/19/18 21:30 11/19/18 21:31 DC 11/19/18 21:56 400 MG Lactobacillus Rhamnosus (Culturelle) 1 cap BID 11/21/18 21:00 11/24/18 07:47 1 CAP Lamotrigine (LaMICtal) 100 mg HS 11/20/18 21:15 11/23/18 21:26 100 MG Lidocaine/ Epinephrine (LIDOCAINE 1%-EPI 1:100,000 Multi-Dose) 20 ml 1X ONCE 11/22/18 10:00 11/22/18 10:01 DC 11/22/18 11:00 4 ML Loperamide HCl (Imodium) 4 mg PRN QID PRN 11/20/18 09:45 11/24/18 07:54 4 MG Magnesium Sulfate 50 ml @ 25 mls/hr 1X ONCE 11/19/18 22:30 11/20/18 00:29 DC 11/19/18 23:00 25 MLS/HR Micafungin Sodium 100 mg/Dextrose 100 ml @ 100 mls/hr Q24H 11/20/18 11:30 11/24/18 10:48 100 MLS/HR Midazolam HCl (Versed) 2 mg 1X ONCE 11/22/18 10:00 11/22/18 10:18 DC Morphine Sulfate (Morphine Sulfate) 1 mg PRN Q10MIN PRN 11/22/18 10:30 11/23/18 10:29 DC Nicotine (Nicoderm Cq 21mg) 1 patch PRN DAILY PRN 11/20/18 09:30 11/20/18 11:22 1 PATCH Olanzapine (ZyPREXA) 5 mg DAILY 11/21/18 09:00 11/24/18 07:47 5 MG Ondansetron HCl (Zofran) 4 mg PRN Q6HRS PRN 11/22/18 10:30 11/23/18 10:29 DC Oxycodone HCl (Roxicodone) 15 mg PRN Q4HRS PRN 11/20/18 09:45 Piperacillin Sod/ Tazobactam Sod (Zosyn Per Pharmacy) 1 each PRN DAILY PRN 11/20/18 09:30 11/20/18 11:10 DC Piperacillin Sod/ Tazobactam Sod 4.5 gm/Sodium Chloride 100 ml @ 200 mls/hr Q6HRS 11/20/18 10:00 11/20/18 11:10 DC 11/20/18 10:03 200 MLS/HR Prochlorperazine Edisylate (Compazine) 5 mg PACU PRN PRN 11/22/18 10:30 11/23/18 10:29 DC Propofol 60 ml @ As Directed STK-MED ONCE 11/22/18 10:19 11/22/18 10:20 DC Ringer's Solution 1,000 ml @ 30 mls/hr Q24H 11/22/18 10:17 11/22/18 12:25 DC Sodium Chloride 1,000 ml @ 1,000 mls/hr 1X ONCE 11/19/18 21:00 11/19/18 21:59 DC 11/19/18 22:36 1,000 MLS/HR Zolpidem Tartrate (Ambien) 5 mg HS 11/20/18 21:00 11/23/18 21:27 5 MG Labs: Micro RUN DATE: 11/23/18 PAGE 1 RUN TIME: 6560 [facility] [address] [place] [address] Pipo Clay M.D., Center Rep PATIENT: DENNIS MEAD ACCT: [id number] LOC: [address] [place] [address] U: [id number] AGE/SX: 33/F ROOM: 565 RE11/19/[address]: MARILYN CARRENO MD : 1985 BED: 1 DIS: STATUS: ADM IN TLOC: SPEC #: [id number] SUJATA: 11/19/18 STATUS: TRAN REUsama #: [id number] RECD: 11/19/[address]: GYPSY ANTHONY DO SOURCE: BLOOD ENTR: 11/20/[address] [facility] [address]: MILLIE VILLAREAL MD [facility]: ORDERED: BLD CULT - LC Procedure Result BLOOD CULTURE LC Final Preliminary report Final report BLD CULT RESULT 1 Final Comment Coagulase negative Staphylococcus species. Performed at: - [facility], [place], [place] [id number] Cartography/Mapping Technician: SULEIMAN Goldsmith MD, Phone: [phone] Staphylococcus epidermidis Based on susceptibility to oxacillin this isolate would be susceptible to: *Penicillinase-stable penicillins, such as: Cloxacillin, Dicloxacillin, Nafcillin *Beta-lactam combination agents, such as: Amoxicillin-clavulanic acid, Ampicillin-sulbactam, Piperacillin-tazobactam *Oral cephems, such as: Cefaclor, Cefdinir, Cefpodoxime, Cefprozil, Cefuroxime, Cephalexin, Loracarbef *Parenteral cephems, such as: Cefazolin, Cefepime, Cefotaxime, Cefotetan, Ceftaroline, Ceftizoxime, Ceftriaxone, Cefuroxime *Carbapenems, such as: Doripenem, Ertapenem, Imipenem, Meropenem ANTIMICROBIAL SUSCEPTIBILITY Final Comment S = Susceptible; I = Intermediate; R = Resistant P = Positive; N = Negative MICS are expressed in micrograms per mL Antibiotic RSLT#1 RSLT#2 RSLT#3 RSLT#4 Ciprofloxacin R =4 Clindamycin S<=0.25 Erythromycin S<=0.25 Gentamicin S<=0.5 CONTINUED ON NEXT PAGE RUN DATE: 11/23/18 PAGE 2 RUN TIME: 6950 [facility] [address] [place] [address] Pipo Clay M.D., Center Rep SPEC: [id number] PATIENT: BOSTONDENNIS Alfredo [id number] (Continued) Procedure Result ANTIMICROBIAL SUSCEPTIBILITY Final (continued) Levofloxacin I =4 Linezolid S =1 Oxacillin S<=0.25 Penicillin R>=0.5 Quinupristin/Dalfopristin S<=0.25 Rifampin S<=0.5 Tetracycline S<=1 Trimethoprim/Sulfa S =40 Vancomycin S =2 Performed at: DA - [facility] [address] [facility] [address], [place], [place] [id number] Cartography/Mapping Technician: SULEIMAN Goldsmith MD, Phone: [phone] Objective: Assessment: 1. Gram-positive cocci bacteremia (4 of 4 bottles) from 11/19. coag neg staph ,MSSE 2. Possible infected at PowerPort. Port removed 11/22,cath tip cults pending 3. Fever.resolved 4. Leukocytosis.resolved 5. 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 6. Short bowel syndrome, on chronic TPN. 7. History of methicillin-resistant Staphylococcus aureus. 8. History of Clostridium difficile. Plan: Plan of Care Continue dapto DC micafungin wbc has improved Monitor for ab toxicities/side effects Repeat BC 11/21 negative so far d/w nursing staff VINOD HERNANDEZ MD Nov 24, 2018 10:54
[2018-11-24 11:00] VITALS: BP 118/67
--- NOTE | 2018-11-24 13:01 | NUR ---
SW following pt for anticipated dc needs. Chart reviewed. Pt lives at home with family. ID following pt. No dc recommendation noted at this time. Will continue to follow pt pending dc needs.
[2018-11-24] MEDS: DAPTOMYCIN IV SCH (13:40)
[2018-11-24] MEDS: NORMAL SALINE IV SCH (13:40)
[2018-11-24 15:00] VITALS: BP 129/94
[2018-11-24 19:00] VITALS: BP 134/81
[2018-11-24] MEDS: FAMOTIDINE 20 MG TABLET. PO SCH (20:53)
[2018-11-24] MEDS: ZOLPIDEM 5 MG TABLET. PO SCH (20:53)
[2018-11-24] MEDS: lamoTRIgine 100 MG TABLET. PO SCH (20:54)
[2018-11-24 23:00] VITALS: BP 133/87
[2018-11-25] MEDS: fentaNYL PF VIAL 100 MCG/2 ML VIAL IV PRN ×6 (01:00→22:33)
[2018-11-25 03:00] VITALS: BP 122/80
[2018-11-25] MEDS: HYDROmorphone 2 MG/ML VIAL IVP PRN ×5 (03:47→20:40)
[2018-11-25 07:00] VITALS: BP 126/88
[2018-11-25 07:13] LABS: BASO % 1 % (0-3); EOS # 0.2 x10^3/uL (0.0-0.7); EOS % 4 % (0-3); HEMATOCRIT 35.2 % (36.0-47.0); HEMOGLOBIN 11.9 g/dL (12.0-15.5); LYMPH # 1.9 x10^3/uL (1.0-4.8); LYMPH % 31 % (24-48); MEAN CORPUSCULAR HEMOGLOBIN 30 pg (25-35); MEAN CORPUSCULAR HGB CONC 34 g/dL (31-37); MEAN CORPUSCULAR VOLUME 89 fL (79-100); MONO # 0.6 x10^3/uL (0.0-1.1); MONO % 9 % (0-9); NEUT # 3.4 x10^3/uL (1.8-7.7); NEUT % 55 % (31-73); PLATELET COUNT 206 x10^3/uL (140-400); RED BLOOD COUNT 3.94 x10^6/uL (3.50-5.40); RED CELL DISTRIBUTION WIDTH 14.7 % (11.5-14.5); WHITE BLOOD COUNT 6.2 x10^3/uL (4.0-11.0)
[2018-11-25 07:44] LABS: ALBUMIN 3.6 g/dL (3.4-5.0); ALBUMIN/GLOBULIN RATIO 0.8 (1.0-1.7); CALCIUM 9.3 mg/dL (8.5-10.1); CREATININE 0.7 mg/dL (0.6-1.0); GFR 96.4; TOTAL BILIRUBIN 0.3 mg/dL (0.2-1.0); TOTAL PROTEIN 7.9 g/dL (6.4-8.2)
[2018-11-25] MEDS: LACTOBACILLUS RHAMNOSUS GG 1 CAPSULE. PO SCH ×2 (08:01→20:40)
[2018-11-25] MEDS: OLANZapine 5 MG TABLET PO SCH (08:01)
[2018-11-25 08:03] LABS: POTASSIUM 4.3 mmol/L (3.5-5.1)
[2018-11-25] MEDS: ENOXAPARIN 40 MG/0.4 ML SYRINGE. SQ SCH (10:00)
--- NOTE | 2018-11-25 10:34 | PDOC ---
Infectious Disease Note Subjective: Subjective Pt is feeling better no fevers or pain port cath site removal site no sob or cough no change in her bm ROS: ROS Negative otherwise. Vital Signs: Vital Signs Vital Signs Date Time Temp Pulse Resp B/P (MAP) Pulse Ox O2 Delivery O2 Flow Rate FiO2 11/25/18 09:52 Room Air 11/25/18 07:00 98.2 73 18 126/88 (101) 100 98.2 11/24/18 13:57 2.0 Physical Exam: PHYSICAL EXAM GENERAL: The patient is sitting upright in bed, alert, no apparent distress. HEENT: Pupils equally round, normal conjunctivae. Oropharynx pink and moist. NECK: Supple. LUNGS: Clear to auscultation. HEART: S1, S2. ABDOMEN: Soft, nontender with bowel sounds present. EXTREMITIES: No gross edema or cyanosis. SKIN: Warm to touch. No signs of rash. NEUROLOGIC: Alert and oriented x 3. LIJ PowerPort site nontender, without redness or swelling. Medications: Inpatient Meds: Current Medications Medications (Trade) Dose Ordered Sig/Caroline Start Time Stop Time Status Last Admin Dose Admin Daptomycin 300 mg/ Sodium Chloride 50 ml @ 100 mls/hr Q24H 11/20/18 13:00 11/24/18 13:43 100 MLS/HR Diphenhydramine HCl (Benadryl) 25 mg PRN Q6HRS PRN 11/20/18 09:45 Enoxaparin Sodium (Lovenox 40mg Syringe) 40 mg Q24H 11/20/18 10:00 Enoxaparin Sodium (Lovenox Per Pharmacy Prophylaxis Dosing) 1 each PRN DAILY PRN 11/20/18 09:45 Famotidine (Pepcid) 40 mg QHS 11/20/18 21:00 11/24/18 20:55 40 MG Fentanyl Citrate (Fentanyl 2ml Vial) 100 mcg PRN Q2HR PRN 11/22/18 20:45 11/25/18 06:22 100 MCG Fluoxetine HCl (PROzac) 5 mg DAILY 11/21/18 09:00 11/25/18 08:04 5 MG Hydromorphone HCl (Dilaudid) 1.5 mg PRN Q4HRS PRN 11/22/18 20:45 11/25/18 08:04 1.5 MG Ibuprofen (Motrin) 400 mg 1X ONCE 11/19/18 21:30 11/19/18 21:31 DC 11/19/18 21:56 400 MG Lactobacillus Rhamnosus (Culturelle) 1 cap BID 11/21/18 21:00 11/25/18 08:04 1 CAP Lamotrigine (LaMICtal) 100 mg HS 11/20/18 21:15 11/24/18 20:55 100 MG Lidocaine/ Epinephrine (LIDOCAINE 1%-EPI 1:100,000 Multi-Dose) 20 ml 1X ONCE 11/22/18 10:00 11/22/18 10:01 DC 11/22/18 11:00 4 ML Loperamide HCl (Imodium) 4 mg PRN QID PRN 11/20/18 09:45 11/24/18 23:35 4 MG Magnesium Sulfate 50 ml @ 25 mls/hr 1X ONCE 11/19/18 22:30 11/20/18 00:29 DC 11/19/18 23:00 25 MLS/HR Micafungin Sodium 100 mg/Dextrose 100 ml @ 100 mls/hr Q24H 11/20/18 11:30 11/24/18 11:31 DC 11/24/18 10:48 100 MLS/HR Midazolam HCl (Versed) 2 mg 1X ONCE 11/22/18 10:00 11/22/18 10:18 DC Morphine Sulfate (Morphine Sulfate) 1 mg PRN Q10MIN PRN 11/22/18 10:30 11/23/18 10:29 DC Nicotine (Nicoderm Cq 21mg) 1 patch PRN DAILY PRN 11/20/18 09:30 11/20/18 11:22 1 PATCH Olanzapine (ZyPREXA) 5 mg DAILY 11/21/18 09:00 11/25/18 08:04 5 MG Ondansetron HCl (Zofran) 4 mg PRN Q6HRS PRN 11/22/18 10:30 11/23/18 10:29 DC Oxycodone HCl (Roxicodone) 15 mg PRN Q4HRS PRN 11/20/18 09:45 Piperacillin Sod/ Tazobactam Sod (Zosyn Per Pharmacy) 1 each PRN DAILY PRN 11/20/18 09:30 11/20/18 11:10 DC Piperacillin Sod/ Tazobactam Sod 4.5 gm/Sodium Chloride 100 ml @ 200 mls/hr Q6HRS 11/20/18 10:00 11/20/18 11:10 DC 11/20/18 10:03 200 MLS/HR Prochlorperazine Edisylate (Compazine) 5 mg PACU PRN PRN 11/22/18 10:30 11/23/18 10:29 DC Propofol 60 ml @ As Directed STK-MED ONCE 11/22/18 10:19 11/22/18 10:20 DC Ringer's Solution 1,000 ml @ 30 mls/hr Q24H 11/22/18 10:17 11/22/18 12:25 DC Sodium Chloride 1,000 ml @ 1,000 mls/hr 1X ONCE 11/19/18 21:00 11/19/18 21:59 DC 11/19/18 22:36 1,000 MLS/HR Zolpidem Tartrate (Ambien) 5 mg HS 11/20/18 21:00 11/24/18 20:55 5 MG Labs: Lab Laboratory Tests Test 11/25/18 06:10 White Blood Count 6.2 x10^3/uL (4.0-11.0) Red Blood Count 3.94 x10^6/uL (3.50-5.40) Hemoglobin 11.9 g/dL (12.0-15.5) Hematocrit 35.2 % (36.0-47.0) Mean Corpuscular Volume 89 fL (79-100) Mean Corpuscular Hemoglobin 30 pg (25-35) Mean Corpuscular Hemoglobin Concent 34 g/dL (31-37) Red Cell Distribution Width 14.7 % (11.5-14.5) Platelet Count 206 x10^3/uL (140-400) Neutrophils (%) (Auto) 55 % (31-73) Lymphocytes (%) (Auto) 31 % (24-48) Monocytes (%) (Auto) 9 % (0-9) Eosinophils (%) (Auto) 4 % (0-3) Basophils (%) (Auto) 1 % (0-3) Neutrophils # (Auto) 3.4 x10^3/uL (1.8-7.7) Lymphocytes # (Auto) 1.9 x10^3/uL (1.0-4.8) Monocytes # (Auto) 0.6 x10^3/uL (0.0-1.1) Eosinophils # (Auto) 0.2 x10^3/uL (0.0-0.7) Basophils # (Auto) 0.0 x10^3/uL (0.0-0.2) Sodium Level 144 mmol/L (136-145) Potassium Level 4.3 mmol/L (3.5-5.1) Chloride Level 104 mmol/L (98-107) Carbon Dioxide Level 32 mmol/L (21-32) Anion Gap 8 (6-14) Blood Urea Nitrogen 9 mg/dL (7-20) Creatinine 0.7 mg/dL (0.6-1.0) Estimated GFR (Cockcroft-Gault) 96.4 BUN/Creatinine Ratio 13 (6-20) Glucose Level 84 mg/dL (70-99) Calcium Level 9.3 mg/dL (8.5-10.1) Total Bilirubin 0.3 mg/dL (0.2-1.0) Aspartate Amino Transf (AST/SGOT) 32 U/L (15-37) Alanine Aminotransferase (ALT/SGPT) 40 U/L (14-59) Alkaline Phosphatase 148 U/L (46-116) Total Protein 7.9 g/dL (6.4-8.2) Albumin 3.6 g/dL (3.4-5.0) Albumin/Globulin Ratio 0.8 (1.0-1.7) Micro RUN DATE: 11/23/18 PAGE 1 RUN TIME: 1710 [facility] [address] [place] [address] Pipo Clay M.D., Armature Bander PATIENT: DENNIS MEAD Sayda ACCT: [id number] LOC: [address] [place] [address] U: [id number] AGE/SX: 33/F ROOM: 565 RE11/19/[address]: MARILYN CARRENO MD : 1985 BED: 1 DIS: STATUS: ADM IN TLOC: SPEC #: [id number] SUJATA: 11/19/18 STATUS: COMP REQ #: [id number] RECD: 11/19/[address]: GYPSY ANTHONY DO SOURCE: BLOOD ENTR: 11/20/18 [facility] DR: MILLIE VILLAREAL MD SPDESC: ORDERED: BLD CULT - LC Procedure Result BLOOD CULTURE LC Final Preliminary report Final report BLD CULT RESULT 1 Final Comment Coagulase negative Staphylococcus species. Performed at: [facility] [address] [facility] [address], [place], [place] [id number] Aeronautical Products Sales Engineer: SULEIMAN Goldsmith MD, Phone: [phone] Staphylococcus epidermidis Based on susceptibility to oxacillin this isolate would be susceptible to: *Penicillinase-stable penicillins, such as: Cloxacillin, Dicloxacillin, Nafcillin *Beta-lactam combination agents, such as: Amoxicillin-clavulanic acid, Ampicillin-sulbactam, Piperacillin-tazobactam *Oral cephems, such as: Cefaclor, Cefdinir, Cefpodoxime, Cefprozil, Cefuroxime, Cephalexin, Loracarbef *Parenteral cephems, such as: Cefazolin, Cefepime, Cefotaxime, Cefotetan, Ceftaroline, Ceftizoxime, Ceftriaxone, Cefuroxime *Carbapenems, such as: Doripenem, Ertapenem, Imipenem, Meropenem ANTIMICROBIAL SUSCEPTIBILITY Final Comment S = Susceptible; I = Intermediate; R = Resistant P = Positive; N = Negative MICS are expressed in micrograms per mL Antibiotic RSLT#1 RSLT#2 RSLT#3 RSLT#4 Ciprofloxacin R =4 Clindamycin S<=0.25 Erythromycin S<=0.25 Gentamicin S<=0.5 CONTINUED ON NEXT PAGE RUN DATE: 11/23/18 PAGE 2 RUN TIME: 1710 [facility] [address] [place] [address] Pipo Clay M.D., Armature Bander SPEC: [id number] PATIENT: DENNIS MEAD Sayda [id number] (Continued) Procedure Result ANTIMICROBIAL SUSCEPTIBILITY Final (continued) Levofloxacin I =4 Linezolid S =1 Oxacillin S<=0.25 Penicillin R>=0.5 Quinupristin/Dalfopristin S<=0.25 Rifampin S<=0.5 Tetracycline S<=1 Trimethoprim/Sulfa S =40 Vancomycin S =2 Performed at: [facility] [address] [facility] [address], [place], [place] [id number] Aeronautical Products Sales Engineer: SULEIMAN Goldsmith MD, Phone: [phone] Objective: Assessment: 1. Gram-positive cocci bacteremia (4 of 4 bottles) from 11/19. coag neg staph ,MSSE 2. Possible infected at PowerPort. Port removed 11/22,cath tip cults pending 3. Fever.resolved 4. Leukocytosis.resolved 5. 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 6. Short bowel syndrome, on chronic TPN. 7. History of methicillin-resistant Staphylococcus aureus. 8. History of Clostridium difficile. Plan: Plan of Care Continue dapto wbc has improved Monitor for ab toxicities/side effects Repeat BC 11/21 negative so far Cath tip cult pending ok from id standpoint for shan cath if needed d/w nursing staff VINOD HERNANDEZ MD Nov 25, 2018 10:34
--- NOTE | 2018-11-25 10:47 | PDOC ---
PROGRESS NOTES Chief Complaint Chief Complaint IMPRESSION sepsis Bacteremia, 4/4 GPC BLD CULT RESULT 1 Final Comment Coagulase negative Staphylococcus species. Gram-positive cocci bacteremia (4 of 4 bottles) from 11/19. coag neg staph ,MSSE infected at [employer]. 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 HEENT: Pupils equally round, normal conjunctivae. Oropharynx pink and moist. NECK: Supple. LUNGS: Clear to auscultation. HEART: S1, S2. ABDOMEN: Soft, nontender with bowel sounds present. EXTREMITIES: No gross edema or cyanosis. SKIN: Warm to touch. No signs of rash. NEUROLOGIC: Alert and oriented x 3. [facility] site nontender, without redness or swelling. General: Alert, Oriented X3, Cooperative, No acute distress Heart: Regular rate, Normal S1, Normal S2 Lungs: Clear Abdomen: Normal bowel sounds, Soft, No tenderness, No hepatosplenomegaly, Other (well healed incision) Extremities: No clubbing, No cyanosis, No edema Skin: No rashes, No breakdown Labs LABS SPDESC: MILLIE VILLAREAL MD, STEPHEN J MD ORDERED: BLD CULT - LC Procedure Result BLOOD CULTURE LC Final Preliminary report Final report BLD CULT RESULT 1 Final Comment Coagulase negative Staphylococcus species. Performed at: - [facility] [address], [place], [place] [id number] Open Soaper Tender: SULEIMAN Goldsmith MD, Phone: [phone] Staphylococcus epidermidis Based on susceptibility to oxacillin this isolate would be susceptible to: *Penicillinase-stable penicillins, such as: Cloxacillin, Dicloxacillin, Nafcillin *Beta-lactam combination agents, such as: Amoxicillin-clavulanic acid, Ampicillin-sulbactam, Piperacillin-tazobactam *Oral cephems, such as: Cefaclor, Cefdinir, Cefpodoxime, Cefprozil, Cefuroxime, Cephalexin, Loracarbef *Parenteral cephems, such as: Cefazolin, Cefepime, Cefotaxime, Cefotetan, Ceftaroline, Ceftizoxime, Ceftriaxone, Cefuroxime *Carbapenems, such as: Doripenem, Ertapenem, Imipenem, Meropenem ANTIMICROBIAL SUSCEPTIBILITY Final Comment S = Susceptible; I = Intermediate; R = Resistant P = Positive; N = Negative MICS are expressed in micrograms per mL Antibiotic RSLT#1 RSLT#2 RSLT#3 RSLT#4 Ciprofloxacin R>=8 Clindamycin S<=0.25 Erythromycin S<=0.25 SPEC #: [id number] SUJATA: 11/22/18 STATUS: RES REQ #: [id number] RECD: 11/22/18 [facility] DR: LAUREN FITCH MD SOURCE: CATH TIP ENTR: 11/22/[address] [facility] [address]: ZOHREH HERNANDEZ MD SPDESC: UNSPEC SALMA PATTON MD, YOLANDA M MD LOWRY, STEPHEN J MD MARSH,MARILYN Puentes MD ORDERED: AEROBIC CULT GS COMMENTS: CATH TIP Procedure Result AEROBIC CULTURE PENDING AEROBIC RES 1 PENDING GRAM STAIN Final Final report GRAM STAIN RESULT 1 Final Comment No white blood cells seen. GRAM STAIN RESULT 2 Final No organisms seen Performed at: - [address], [place], [place] [id number] Open Soaper Tender: SULEIMAN Goldsmith MD, Phone: [phone] Laboratory Tests Test 11/25/18 06:10 White Blood Count 6.2 x10^3/uL (4.0-11.0) Red Blood Count 3.94 x10^6/uL (3.50-5.40) Hemoglobin 11.9 g/dL (12.0-15.5) Hematocrit 35.2 % (36.0-47.0) Mean Corpuscular Volume 89 fL (79-100) Mean Corpuscular Hemoglobin 30 pg (25-35) Mean Corpuscular Hemoglobin Concent 34 g/dL (31-37) Red Cell Distribution Width 14.7 % (11.5-14.5) Platelet Count 206 x10^3/uL (140-400) Neutrophils (%) (Auto) 55 % (31-73) Lymphocytes (%) (Auto) 31 % (24-48) Monocytes (%) (Auto) 9 % (0-9) Eosinophils (%) (Auto) 4 % (0-3) Basophils (%) (Auto) 1 % (0-3) Neutrophils # (Auto) 3.4 x10^3/uL (1.8-7.7) Lymphocytes # (Auto) 1.9 x10^3/uL (1.0-4.8) Monocytes # (Auto) 0.6 x10^3/uL (0.0-1.1) Eosinophils # (Auto) 0.2 x10^3/uL (0.0-0.7) Basophils # (Auto) 0.0 x10^3/uL (0.0-0.2) Sodium Level 144 mmol/L (136-145) Potassium Level 4.3 mmol/L (3.5-5.1) Chloride Level 104 mmol/L (98-107) Carbon Dioxide Level 32 mmol/L (21-32) Anion Gap 8 (6-14) Blood Urea Nitrogen 9 mg/dL (7-20) Creatinine 0.7 mg/dL (0.6-1.0) Estimated GFR (Cockcroft-Gault) 96.4 BUN/Creatinine Ratio 13 (6-20) Glucose Level 84 mg/dL (70-99) Calcium Level 9.3 mg/dL (8.5-10.1) Total Bilirubin 0.3 mg/dL (0.2-1.0) Aspartate Amino Transf (AST/SGOT) 32 U/L (15-37) Alanine Aminotransferase (ALT/SGPT) 40 U/L (14-59) Alkaline Phosphatase 148 U/L (46-116) Total Protein 7.9 g/dL (6.4-8.2) Albumin 3.6 g/dL (3.4-5.0) Albumin/Globulin Ratio 0.8 (1.0-1.7) Assessment and Plan Assessmemt and Plan Problems Medical Problems: (1) Fever Status: Acute (2) Infection of venous access port Status: Acute (3) Sepsis Status: Acute Comment Review of Relevant I have reviewed the following items noni (where applicable) has been applied. Labs Laboratory Tests Test 11/25/18 06:10 White Blood Count 6.2 x10^3/uL (4.0-11.0) Red Blood Count 3.94 x10^6/uL (3.50-5.40) Hemoglobin 11.9 g/dL (12.0-15.5) Hematocrit 35.2 % (36.0-47.0) Mean Corpuscular Volume 89 fL (79-100) Mean Corpuscular Hemoglobin 30 pg (25-35) Mean Corpuscular Hemoglobin Concent 34 g/dL (31-37) Red Cell Distribution Width 14.7 % (11.5-14.5) Platelet Count 206 x10^3/uL (140-400) Neutrophils (%) (Auto) 55 % (31-73) Lymphocytes (%) (Auto) 31 % (24-48) Monocytes (%) (Auto) 9 % (0-9) Eosinophils (%) (Auto) 4 % (0-3) Basophils (%) (Auto) 1 % (0-3) Neutrophils # (Auto) 3.4 x10^3/uL (1.8-7.7) Lymphocytes # (Auto) 1.9 x10^3/uL (1.0-4.8) Monocytes # (Auto) 0.6 x10^3/uL (0.0-1.1) Eosinophils # (Auto) 0.2 x10^3/uL (0.0-0.7) Basophils # (Auto) 0.0 x10^3/uL (0.0-0.2) Sodium Level 144 mmol/L (136-145) Potassium Level 4.3 mmol/L (3.5-5.1) Chloride Level 104 mmol/L (98-107) Carbon Dioxide Level 32 mmol/L (21-32) Anion Gap 8 (6-14) Blood Urea Nitrogen 9 mg/dL (7-20) Creatinine 0.7 mg/dL (0.6-1.0) Estimated GFR (Cockcroft-Gault) 96.4 BUN/Creatinine Ratio 13 (6-20) Glucose Level 84 mg/dL (70-99) Calcium Level 9.3 mg/dL (8.5-10.1) Total Bilirubin 0.3 mg/dL (0.2-1.0) Aspartate Amino Transf (AST/SGOT) 32 U/L (15-37) Alanine Aminotransferase (ALT/SGPT) 40 U/L (14-59) Alkaline Phosphatase 148 U/L (46-116) Total Protein 7.9 g/dL (6.4-8.2) Albumin 3.6 g/dL (3.4-5.0) Albumin/Globulin Ratio 0.8 (1.0-1.7) Laboratory Tests Test 11/25/18 06:10 White Blood Count 6.2 x10^3/uL (4.0-11.0) Red Blood Count 3.94 x10^6/uL (3.50-5.40) Hemoglobin 11.9 g/dL (12.0-15.5) Hematocrit 35.2 % (36.0-47.0) Mean Corpuscular Volume 89 fL (79-100) Mean Corpuscular Hemoglobin 30 pg (25-35) Mean Corpuscular Hemoglobin Concent 34 g/dL (31-37) Red Cell Distribution Width 14.7 % (11.5-14.5) Platelet Count 206 x10^3/uL (140-400) Neutrophils (%) (Auto) 55 % (31-73) Lymphocytes (%) (Auto) 31 % (24-48) Monocytes (%) (Auto) 9 % (0-9) Eosinophils (%) (Auto) 4 % (0-3) Basophils (%) (Auto) 1 % (0-3) Neutrophils # (Auto) 3.4 x10^3/uL (1.8-7.7) Lymphocytes # (Auto) 1.9 x10^3/uL (1.0-4.8) Monocytes # (Auto) 0.6 x10^3/uL (0.0-1.1) Eosinophils # (Auto) 0.2 x10^3/uL (0.0-0.7) Basophils # (Auto) 0.0 x10^3/uL (0.0-0.2) Sodium Level 144 mmol/L (136-145) Potassium Level 4.3 mmol/L (3.5-5.1) Chloride Level 104 mmol/L (98-107) Carbon Dioxide Level 32 mmol/L (21-32) Anion Gap 8 (6-14) Blood Urea Nitrogen 9 mg/dL (7-20) Creatinine 0.7 mg/dL (0.6-1.0) Estimated GFR (Cockcroft-Gault) 96.4 BUN/Creatinine Ratio 13 (6-20) Glucose Level 84 mg/dL (70-99) Calcium Level 9.3 mg/dL (8.5-10.1) Total Bilirubin 0.3 mg/dL (0.2-1.0) Aspartate Amino Transf (AST/SGOT) 32 U/L (15-37) Alanine Aminotransferase (ALT/SGPT) 40 U/L (14-59) Alkaline Phosphatase 148 U/L (46-116) Total Protein 7.9 g/dL (6.4-8.2) Albumin 3.6 g/dL (3.4-5.0) Albumin/Globulin Ratio 0.8 (1.0-1.7) Microbiology 11/22/18 Aerobic Culture, Resulted Pending 11/22/18 Aerobic Culture Result 1 (NATE), Resulted Pending 11/22/18 Gram Stain - Final, Resulted 11/22/18 Gram Stain Result 1 (NATE) - Final, Resulted 11/22/18 Gram Stain Result 2 (NATE) - Final, Resulted 11/21/18 Blood Culture - Preliminary, Resulted NO GROWTH AFTER 3 DAYS Medications Current Medications Sodium Chloride 1,000 ml @ 1,000 mls/hr 1X ONCE IV Last administered on 11/19/18at 21:56; Start 11/19/18 at 21:00; Stop 11/19/18 at 21:59; Status DC Piperacillin Sod/ Tazobactam Sod 4.5 gm/Sodium Chloride 100 ml @ 200 mls/hr 1X ONCE IV Last administered on 11/19/18 22:03; Start 11/19/18 at 21:30; Stop 11/19/18 at 21:59; Status DC Sodium Chloride 1,000 ml @ 1,000 mls/hr 1X ONCE IV Last administered on 11/19/18at 22:36; Start 11/19/18 at 21:00; Stop 11/19/18 at 21:59; Status DC Ibuprofen (Motrin) 400 mg 1X ONCE PO Last administered on 11/19/18at 21:56; Start 11/19/18 at 21:30; Stop 11/19/18 at 21:31; Status DC Fentanyl Citrate (Fentanyl 2ml Vial) 50 mcg 1X ONCE IV Last administered on 11/19/18 22:03; Start 11/19/18 at 22:00; Stop 11/19/18 at 22:01; Status DC Fentanyl Citrate (Fentanyl 2ml Vial) 100 mcg STK-MED ONCE .ROUTE ; Start 11/19/18 at 21:53; Stop 11/19/18 at 21:53; Status DC Magnesium Sulfate 50 ml @ 25 mls/hr 1X ONCE IV Last administered on 11/19/18 23:00; Start 11/19/18 at 22:30; Stop 11/20/18 at 00:29; Status DC Fentanyl Citrate (Fentanyl 2ml Vial) 50 mcg 1X ONCE IV Last administered on 11/19/18 23:00; Start 11/19/18 at 22:45; Stop 11/19/18 at 22:46; Status DC Ondansetron HCl (Zofran) 4 mg PRN Q8HRS PRN IV NAUSEA/VOMITING Last administered on 11/19/18 23:00; Start 11/19/18 at 22:45; Stop 11/20/18 at 22:44; Status DC Fentanyl Citrate (Fentanyl 2ml Vial) 75 mcg PRN Q2HR PRN IV MODERATE PAIN Last administered on 11/22/18 18:23; Start 11/19/18 at 22:45; Stop 11/22/18 at 20:48; Status DC Hydromorphone HCl (Dilaudid) 1 mg PRN Q4HRS PRN IVP SEVERE PAIN Last administered on 11/22/18 20:21; Start 11/20/18 at 09:15; Stop 11/22/18 at 20:48; Status DC Fluoxetine HCl (PROzac) 5 mg DAILY PEG Last administered on 11/25/18at 08:04; Start 11/21/18 at 09:00 Lamotrigine (LaMICtal) 100 mg DAILY PO ; Start 11/21/18 at 09:00; Stop 11/20/18 at 21:05; Status DC Nicotine (Nicoderm Cq 21mg) 1 patch PRN DAILY PRN TD SMOKING CESSATION Last administered on 11/20/18at 11:22; Start 11/20/18 at 09:30 Olanzapine (ZyPREXA) 5 mg DAILY PO Last administered on 11/25/18at 08:04; Start 11/21/18 at 09:00 Famotidine (Pepcid) 40 mg QHS PO Last administered on 11/24/18at 20:55; Start 11/20/18 at 21:00 Loperamide HCl (Imodium) 4 mg PRN QID PRN PO DIARRHEA Last administered on 11/24/18at 23:35; Start 11/20/18 at 09:45 Piperacillin Sod/ Tazobactam Sod (Zosyn Per Pharmacy) 1 each PRN DAILY PRN MC SEE COMMENTS; Start 11/20/18 at 09:30; Stop 11/20/18 at 11:10; Status DC Piperacillin Sod/ Tazobactam Sod 4.5 gm/Sodium Chloride 100 ml @ 200 mls/hr Q6HRS IV Last administered on 11/20/18at 10:03; Start 11/20/18 at 10:00; Stop 11/20/18 at 11:10; Status DC Zolpidem Tartrate (Ambien) 5 mg HS PO Last administered on 11/24/18at 20:55; Start 11/20/18 at 21:00 Diphenhydramine HCl (Benadryl) 25 mg PRN Q6HRS PRN PO ITCHING; Start 11/20/18 at 09:45 Oxycodone HCl (Roxicodone) 15 mg PRN Q4HRS PRN PO PAIN; Start 11/20/18 at 09:45 Enoxaparin Sodium (Lovenox Per Pharmacy Prophylaxis Dosing) 1 each PRN DAILY PRN MC SEE COMMENTS; Start 11/20/18 at 09:45 Enoxaparin Sodium (Lovenox 40mg Syringe) 40 mg Q24H SQ ; Start 11/20/18 at 10:00 Daptomycin 300 mg/ Sodium Chloride 50 ml @ 100 mls/hr Q24H IV Last administered on 11/24/18at 13:43; Start 11/20/18 at 13:00 Micafungin Sodium 100 mg/Dextrose 100 ml @ 100 mls/hr Q24H IV Last administered on 11/24/18at 10:48; Start 11/20/18 at 11:30; Stop 11/24/18 at 11:31; Status DC Lamotrigine (LaMICtal) 100 mg STK-MED ONCE .ROUTE ; Start 11/20/18 at 21:03; Stop 11/20/18 at 21:03; Status DC Lamotrigine (LaMICtal) 100 mg HS PO Last administered on 11/24/18at 20:55; Start 11/20/18 at 21:15 Hydromorphone HCl (Dilaudid) 1 mg 1X ONCE IVP Last administered on 11/21/18at 09:40; Start 11/21/18 at 09:30; Stop 11/21/18 at 09:31; Status DC Lactobacillus Rhamnosus (Culturelle) 1 cap BID PO Last administered on 11/25/18at 08:04; Start 11/21/18 at 21:00 Midazolam HCl (Versed) 2 mg STK-MED ONCE .ROUTE ; Start 11/22/18 at 09:47; Stop 11/22/18 at 09:48; Status DC Fentanyl Citrate (Fentanyl 2ml Vial) 100 mcg STK-MED ONCE .ROUTE ; Start 11/22/18 at 09:47; Stop 11/22/18 at 09:48; Status DC Lidocaine/ Epinephrine (LIDOCAINE 1%-EPI 1:100,000 Multi-Dose) 20 ml STK-MED ONCE .ROUTE ; Start 11/22/18 at 09:48; Stop 11/22/18 at 09:48; Status DC Midazolam HCl (Versed) 2 mg 1X ONCE IV ; Start 11/22/18 at 10:00; Stop 11/22/18 at 10:18; Status DC Fentanyl Citrate (Fentanyl 2ml Vial) 100 mcg 1X ONCE IV ; Start 11/22/18 at 10:00; Stop 11/22/18 at 10:18; Status DC Lidocaine/ Epinephrine (LIDOCAINE 1%-EPI 1:100,000 Multi-Dose) 20 ml 1X ONCE INJ Last administered on 11/22/18at 11:00; Start 11/22/18 at 10:00; Stop 11/22/18 at 10:01; Status DC Ondansetron HCl (Zofran) 4 mg PRN Q6HRS PRN IV NAUSEA/VOMITING; Start 11/22/18 at 10:30; Stop 11/23/18 at 10:29; Status DC Fentanyl Citrate (Fentanyl 2ml Vial) 25 mcg PRN Q5MIN PRN IV MILD PAIN 1-3; Start 11/22/18 at 10:30; Stop 11/22/18 at 12:25; Status DC Fentanyl Citrate (Fentanyl 2ml Vial) 50 mcg PRN Q5MIN PRN IV MODERATE TO SEVERE PAIN Last administered on 11/22/18at 11:53; Start 11/22/18 at 10:30; Stop 11/22/18 at 12:25; Status DC Morphine Sulfate (Morphine Sulfate) 1 mg PRN Q10MIN PRN IV SEVERE PAIN 7-10; Start 11/22/18 at 10:30; Stop 11/23/18 at 10:29; Status DC Ringer's Solution 1,000 ml @ 30 mls/hr Q24H IV ; Start 11/22/18 at 10:17; Stop 11/22/18 at 12:25; Status DC Hydromorphone HCl (Dilaudid) 0.5 mg PRN Q10MIN PRN IV SEV PAIN, Second choice Last administered on 11/22/18at 16:18; Start 11/22/18 at 10:30; Stop 11/23/18 at 10:29; Status DC Prochlorperazine Edisylate (Compazine) 5 mg PACU PRN PRN IV NAUSEA, MRX1; Star t 11/22/18 at 10:30; Stop 11/23/18 at 10:29; Status DC Propofol 60 ml @ As Directed STK-MED ONCE IV ; Start 11/22/18 at 10:19; Stop 11/22/18 at 10:20; Status DC Fentanyl Citrate (Fentanyl 2ml Vial) 100 mcg STK-MED ONCE .ROUTE ; Start 11/22/18 at 11:37; Stop 11/22/18 at 11:38; Status DC Fentanyl Citrate (Fentanyl 2ml Vial) 100 mcg PRN Q2HR PRN IV MODERATE PAIN Last administered on 11/25/18at 06:22; Start 11/22/18 at 20:45 Hydromorphone HCl (Dilaudid) 1.5 mg PRN Q4HRS PRN IVP SEVERE PAIN Last administered on 11/25/18at 08:04; Start 11/22/18 at 20:45 Active Scripts Active Reported NICODERM CQ 21mg (Nicotine) 1 Each Patch.td24 1 Patch TD PRN DAILY PRN Prozac (Fluoxetine Hcl) 10 Mg Capsule 5 Mg PO DAILY Famotidine 40 Mg Tablet 40 Mg PO HS Fluoxetine Hcl 20 Mg Tablet 20 Mg PO DAILY Olanzapine 5 Mg Tablet 5 Mg PO DAILY Oxycodone Hcl Immed.release (Oxycodone Hcl) 15 Mg Tablet 15 Mg PO QID Lamictal (Lamotrigine) 100 Mg Tablet 1 Tab PO DAILY Loperamide (Loperamide Hcl) 2 Mg Tablet 4 Mg PO PRN QID PRN Vitals/I & O Vital Sign - Last 24 Hours 11/24/18 11/24/18 11/24/18 11/24/18 10:48 11:00 11:29 12:42 Temp 98.0 98.0 Pulse 67 Resp 20 17 20 20 B/P (MAP) 118/67 (84) Pulse Ox 93 97 93 93 O2 Delivery Room Air Room Air Room Air Room Air 11/24/18 11/24/18 11/24/18 11/24/18 13:57 14:59 15:00 15:25 Temp 98.2 98.2 Pulse 77 Resp 20 20 17 20 B/P (MAP) 129/94 (106) Pulse Ox 93 93 98 98 O2 Delivery Room Air Room Air Room Air Room Air O2 Flow Rate 2.0 11/24/18 11/24/18 11/24/18 11/24/18 17:11 17:26 18:38 19:00 Temp 98.6 98.6 Pulse 76 Resp 20 20 20 18 B/P (MAP) 134/81 (98) Pulse Ox 98 98 98 97 O2 Delivery Room Air Room Air Room Air 11/24/18 11/24/18 11/24/18 11/24/18 20:00 20:55 20:56 22:51 Resp 20 20 O2 Delivery Room Air Room Air Room Air Room Air 11/24/18 11/24/18 11/25/18 11/25/18 23:00 23:36 01:00 03:00 Temp 99.0 98.2 99.0 98.2 Pulse 84 70 Resp 18 20 20 16 B/P (MAP) 133/87 (102) 122/80 (94) Pulse Ox 97 100 O2 Delivery Room Air 11/25/18 11/25/18 11/25/18 11/25/18 03:47 06:13 06:22 07:00 Temp 98.2 98.2 Pulse 73 Resp 18 18 18 B/P (MAP) 126/88 (101) Pulse Ox 100 O2 Delivery Room Air Room Air Room Air Room Air 11/25/18 11/25/18 11/25/18 11/25/18 07:45 08:04 09:50 09:52 O2 Delivery Room Air Room Air Room Air Room Air Intake and Output 11/24/18 11/24/18 11/25/18 14:59 22:59 06:59 Intake Total 480 ml 360 ml 240 ml Output Total 1 ml Balance 480 ml 360 ml 239 ml ANUPAMA QUINONES MD Nov 25, 2018 10:47
[2018-11-25 11:00] VITALS: BP 121/64
[2018-11-25] MEDS: NORMAL SALINE IV SCH (12:31)
[2018-11-25] MEDS: DAPTOMYCIN IV SCH (12:31)
[2018-11-25] MEDS: LOPERAMIDE 2 MG CAPSULE PO PRN ×2 (12:31→20:49)
[2018-11-25 15:00] VITALS: BP 129/65
[2018-11-25 19:00] VITALS: BP 125/76
[2018-11-25] MEDS: lamoTRIgine 100 MG TABLET. PO SCH (20:41)
[2018-11-25] MEDS: FAMOTIDINE 20 MG TABLET. PO SCH (20:41)
[2018-11-25] MEDS: ZOLPIDEM 5 MG TABLET. PO SCH (20:41)
[2018-11-25 23:00] VITALS: BP 137/94
[2018-11-26] VITALS (7 sets, daily range): BP systolic 128–155; BP diastolic 77–104
[2018-11-26] MEDS: HYDROmorphone 2 MG/ML VIAL IVP PRN ×6 (00:41→21:13)
[2018-11-26] MEDS: fentaNYL PF VIAL 100 MCG/2 ML VIAL IV PRN ×8 (01:47→23:24)
[2018-11-26] MEDS: LOPERAMIDE 2 MG CAPSULE PO PRN ×3 (06:53→21:12)
--- NOTE | 2018-11-26 08:08 | NUR ---
ZOLTAN following pt. ZOLTAN notified pt is current with [facility] . ZOLTAN will arrange HH pending Physician orders. Will continue to follow. Addendum: 11/26/18 at 1540 by TYRELL CHARLTON ZOLTAN phoned and faxed HH resumption orders to [facility]. Naif/w
[2018-11-26] MEDS: OLANZapine 5 MG TABLET PO SCH (08:55)
[2018-11-26] MEDS: LACTOBACILLUS RHAMNOSUS GG 1 CAPSULE. PO SCH ×2 (08:55→21:02)
[2018-11-26] MEDS: ENOXAPARIN 40 MG/0.4 ML SYRINGE. SQ SCH (10:00)
[2018-11-26] MEDS ORDERED: OXYC15TA PO (10:10)
[2018-11-26] MEDS ORDERED: LACT1CAP19 PO (10:10)
--- NOTE | 2018-11-26 10:11 | SNU/HH DC ---
DISCHARGE WITH HOME HEALTH DISCHARGE INFORMATION: Discharge Date: Nov 26, 2018 Final Diagnosis: Problems Medical Problems: (1) Fever Status: Acute (2) Infection of venous access port Status: Acute (3) Sepsis Status: Acute Condition on Discharge: Stable CODE STATUS: Code Status: Full HOME HEALTH: Face to Face: I certify this patient is under my care and that I, or a nurse practitioner or physician's scheduling assistant working with me, had a face to face encounter that meets the physician face to face encounter requirements with this patient on []. RN For Eval/Treatment: Yes Pt Meets Homebound Status: Other: (tpn 2x weekly) POST DISCHARGE ORDERS: Activity Instructions for Disc: No restrictions DIET AFTER DISCHARGE: Regular CHECKS AFTER DISCHARGE: Checks after discharge: Check blood press - daily FOLLOW-UP: PCP to follow Home Health: ff up with your specialty clinic in [place] TREATMENT/EQUIPMENT ORDERS: Adaptive Equipment Issued: None Infusion Equipment, home use: PortaCath CERTIFICATION STATEMENT: Certification Statement: Certification Statement: Based on the above finding, I certify that this patient is confined to the home and needs intermittent nursing home care, physical therapy and/or speech therapy, or continues to need occupational therapy.~ This patient is under my care, and I have initiated the establishment of the plan of care.~ This patient will be followed by myself or a community physician who will periodically review the plan of care. Home Meds Active Scripts Lactobacillus Rhamnosus Gg (CULTURELLE) 1 Each Cap.sprink, 1 CAP PO BID for pro biotic for 14 Days, #28 CAP Prov:ALBERT SAINI MD 11/26/18 Oxycodone Hcl (OXYCODONE HCL IMMED.RELEASE) 15 Mg Tablet, 15 MG PO QID for PAIN, #30 TAB Prov:ALBERT SAINI MD 11/26/18 Reported Medications Nicotine (NICODERM CQ 21mg) 1 Each Patch.td24, 1 PATCH TD PRN DAILY PRN for SMOKING CESSATION, PATCH 11/20/18 Fluoxetine Hcl (PROZAC) 10 Mg Capsule, 5 MG PO DAILY for depression, CAP 11/20/18 Famotidine (FAMOTIDINE) 40 Mg Tablet, 40 MG PO HS for GERD, TAB 11/20/18 Olanzapine (OLANZAPINE) 5 Mg Tablet, 5 MG PO DAILY for 11/20/18 Lamotrigine (LAMICTAL) 100 Mg Tablet, 1 TAB PO DAILY, #30 TAB 1 Refill 08/29/15 Loperamide Hcl (LOPERAMIDE) 2 Mg Tablet, 4 MG PO PRN QID PRN for DIARRHEA 04/04/15 Discontinued Reported Medications Fluoxetine Hcl (FLUOXETINE HCL) 20 Mg Tablet, 20 MG PO DAILY for 11/20/18 Famotidine (FAMOTIDINE) 10 Mg/1 Ml Vial, 4 MG IV DAILY, VIAL 04/04/15 Oxycodone Hcl (ROXICODONE) 30 Mg Tablet, 15 MG PO Q6HRS 04/04/15 ALBERT SAINI MD Nov 26, 2018 10:11
--- NOTE | 2018-11-26 10:16 | PDOC3 ---
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 sepsis neg port a cath tip port infection s/p removal short gut syndrome, malnutrition, mild, albumin 3.4 on admit history of uterine cancer, s/p surg, chemo and radiation, now with post effect HX MOLAR bipolar disorder, tobacco use disorder Final Diagnosis Problems Medical Problems: (1) Fever Status: Acute (2) Infection of venous access port Status: Acute (3) Sepsis Status: Acute Brief Hospital Course Allergies Allergies Coded Allergies Type Severity Reaction Last Updated Verified adhesive Allergy Intermediate Rash 01/27/14 Yes amphetamine Allergy Intermediate hallucinations 01/27/14 Yes dextroamphetamine Allergy Intermediate hallucinations 01/27/14 Yes lorazepam Allergy Intermediate hallucinations 01/27/14 Yes meperidine Allergy Intermediate "violent rages" 01/27/14 Yes vancomycin Allergy Intermediate "raynauds" 01/27/14 Yes Vital Signs Vital Signs Date Time Temp Pulse Resp B/P (MAP) Pulse Ox O2 Delivery O2 Flow Rate FiO2 11/26/18 08:58 Room Air 11/26/18 07:00 98.4 78 18 139/91 (107) 100 98.4 11/25/18 13:24 2.0 Lab Results Laboratory Tests Test 11/25/18 06:10 White Blood Count 6.2 x10^3/uL (4.0-11.0) Red Blood Count 3.94 x10^6/uL (3.50-5.40) Hemoglobin 11.9 g/dL (12.0-15.5) Hematocrit 35.2 % (36.0-47.0) Mean Corpuscular Volume 89 fL (79-100) Mean Corpuscular Hemoglobin 30 pg (25-35) Mean Corpuscular Hemoglobin Concent 34 g/dL (31-37) Red Cell Distribution Width 14.7 % (11.5-14.5) Platelet Count 206 x10^3/uL (140-400) Neutrophils (%) (Auto) 55 % (31-73) Lymphocytes (%) (Auto) 31 % (24-48) Monocytes (%) (Auto) 9 % (0-9) Eosinophils (%) (Auto) 4 % (0-3) Basophils (%) (Auto) 1 % (0-3) Neutrophils # (Auto) 3.4 x10^3/uL (1.8-7.7) Lymphocytes # (Auto) 1.9 x10^3/uL (1.0-4.8) Monocytes # (Auto) 0.6 x10^3/uL (0.0-1.1) Eosinophils # (Auto) 0.2 x10^3/uL (0.0-0.7) Basophils # (Auto) 0.0 x10^3/uL (0.0-0.2) Sodium Level 144 mmol/L (136-145) Potassium Level 4.3 mmol/L (3.5-5.1) Chloride Level 104 mmol/L (98-107) Carbon Dioxide Level 32 mmol/L (21-32) Anion Gap 8 (6-14) Blood Urea Nitrogen 9 mg/dL (7-20) Creatinine 0.7 mg/dL (0.6-1.0) Estimated GFR (Cockcroft-Gault) 96.4 BUN/Creatinine Ratio 13 (6-20) Glucose Level 84 mg/dL (70-99) Calcium Level 9.3 mg/dL (8.5-10.1) Total Bilirubin 0.3 mg/dL (0.2-1.0) Aspartate Amino Transf (AST/SGOT) 32 U/L (15-37) Alanine Aminotransferase (ALT/SGPT) 40 U/L (14-59) Alkaline Phosphatase 148 U/L (46-116) Total Protein 7.9 g/dL (6.4-8.2) Albumin 3.6 g/dL (3.4-5.0) Albumin/Globulin Ratio 0.8 (1.0-1.7) Brief Hospital Course Ms. Hansen is a 33 old [sex] who presented with [ ] Assessment Assessment she has short gut syndrome for over radiation for uterine cancer from [facility] and follows withs pecialty clinic at [place] for her short gutm, She is maintained on TPN and has been weaned to twice weekly TPN by that institution, She has had past admission for infections of picc etc, BUT THIS WAS AN ADMISSION FOR AN INFECTED Shan cath that was removed, comanaged with ID. CAth tip is neg growth, but BC MSSE, was on dapto here, Okayed by ID for home with po zyvox but pt wants IV abx, She also wants shan cath tho her appetite seemed to have picked up here and BMI 21. Tense discussion today on dc We are okay for shan cath re insertion prior to dc, HH spectrum, but ID says only for dapto I am willing to talk to her specialists in [place], as she claims they want her on IV abx??? Dw RN and ID Pt seen and examiend Discharge Information Condition at Discharge: Improved, Stable Disposition/Orders: D/C to Home w/ HH Scheduled Famotidine (Famotidine) 40 Mg Tablet, 40 MG PO HS for GERD, (Reported) Entered as Reported by: ELENA REED on 11/20/18627 Last Action: Converted on 11/20/18918 by MARILYN CARRENO Fluoxetine Hcl (Prozac) 10 Mg Capsule, 5 MG PO DAILY for depression, (Reported) Entered as Reported by: ELENA REDE on 11/20/18627 Last Action: Continued on 11/20/18918 by MARILYN CARRENO Lactobacillus Rhamnosus Gg (Culturelle) 1 Each Cap.sprink, 1 CAP PO BID for pro biotic for 14 Days, #28 Prescribed by: ALBERT SAINI on 11/26/18 1010 Lamotrigine (Lamictal) 100 Mg Tablet, 1 TAB PO DAILY, #30 Ref 1 (Reported) Entered as Reported by: MONALISA SCHMID on 08/29/15 0938 Last Action: Continued on 11/20/18918 by MARILYN CARRENO Olanzapine (Olanzapine) 5 Mg Tablet, 5 MG PO DAILY for , (Reported) Entered as Reported by: ELENA REED on 11/20/18624 Last Action: Continued on 11/20/18918 by MARILYN CARRENO Oxycodone Hcl (Oxycodone Hcl Immed.release) 15 Mg Tablet, 15 MG PO QID for PAIN, #30 Prescribed by: ALBERT SAINI on 11/26/18 1010 Scheduled PRN Loperamide Hcl (Loperamide) 2 Mg Tablet, 4 MG PO PRN QID PRN for DIARRHEA, (Reported) Entered as Reported by: PELON IBRAHIM on 04/04/15 1718 Last Action: Converted on 11/20/18918 by MARILYN CARRENO Nicotine (NICODERM CQ 21mg) 1 Each Patch.td24, 1 PATCH TD PRN DAILY PRN for SMOKING CESSATION, (Reported) Entered as Reported by: ELENA REED on 11/20/18627 Last Action: Continued on 11/20/18918 by MARILYN CARRENO Discontinued Medications Famotidine (Famotidine) 10 Mg/1 Ml Vial, 4 MG IV DAILY, (Reported) Entered as Reported by: PELON IBRAHIM on 04/04/151717 Last Action: Discontinued on 11/20/18627 by ELENA REED Fluoxetine Hcl (Fluoxetine Hcl) 20 Mg Tablet, 20 MG PO DAILY for , (Reported) Entered as Reported by: ELNEA REED on 11/20/18624 Last Action: HELD on 11/20/18918 by MARILYN CARRENO Oxycodone Hcl (Roxicodone) 30 Mg Tablet, 15 MG PO Q6HRS, (Reported) Entered as Reported by: PELON IBRAHIM on 04/04/151717 Last Action: Discontinued on 11/20/18627 by ALBERT CHAMPION MD Nov 26, 2018 10:16
--- NOTE | 2018-11-26 10:47 | PDOC ---
Provider Note Provider Note IR cant insert shan cath today thursday - earliest thursday as in pt or as OP Pt opted for in pt Pt will be here over the weekend REVISED orders placed in dw RN\\ cont dapto while in house ALBERT SAINI MD Nov 26, 2018 10:47
--- NOTE | 2018-11-26 11:19 | PDOC ---
Infectious Disease Note Subjective: Subjective pt says she has abdo pain wants portacath this admission for tpn no fevers or pain port cath site removal site no sob or cough no change in her bm ROS: ROS Negative otherwise. Vital Signs: Vital Signs Vital Signs Date Time Temp Pulse Resp B/P (MAP) Pulse Ox O2 Delivery O2 Flow Rate FiO2 11/26/18 10:16 Room Air 11/26/18 07:00 98.4 78 18 139/91 (107) 100 98.4 11/25/18 13:24 2.0 Physical Exam: PHYSICAL EXAM GENERAL: The patient is sitting upright in bed, alert, no apparent distress. HEENT: Pupils equally round, normal conjunctivae. Oropharynx pink and moist. NECK: Supple. LUNGS: Clear to auscultation. HEART: S1, S2. ABDOMEN: Soft, nontender with bowel sounds present. EXTREMITIES: No gross edema or cyanosis. SKIN: Warm to touch. No signs of rash. NEUROLOGIC: Alert and oriented x 3. LIJ PowerPort removal site nontender, without redness or swelling. Medications: Inpatient Meds: Current Medications Medications (Trade) Dose Ordered Sig/Caroline Start Time Stop Time Status Last Admin Dose Admin Daptomycin 300 mg/ Sodium Chloride 50 ml @ 100 mls/hr Q24H 11/20/18 13:00 11/25/18 12:31 100 MLS/HR Diphenhydramine HCl (Benadryl) 25 mg PRN Q6HRS PRN 11/20/18 09:45 Enoxaparin Sodium (Lovenox 40mg Syringe) 40 mg Q24H 11/20/18 10:00 Enoxaparin Sodium (Lovenox Per Pharmacy Prophylaxis Dosing) 1 each PRN DAILY PRN 11/20/18 09:45 Famotidine (Pepcid) 40 mg QHS 11/20/18 21:00 11/25/18 20:44 40 MG Fentanyl Citrate (Fentanyl 2ml Vial) 100 mcg PRN Q2HR PRN 11/22/18 20:45 11/26/18 10:15 100 MCG Fluoxetine HCl (PROzac) 5 mg DAILY 11/21/18 09:00 11/26/18 08:58 5 MG Hydromorphone HCl (Dilaudid) 1.5 mg PRN Q4HRS PRN 11/22/18 20:45 11/26/18 08:58 1.5 MG Ibuprofen (Motrin) 400 mg 1X ONCE 11/19/18 21:30 11/19/18 21:31 DC 11/19/18 21:56 400 MG Lactobacillus Rhamnosus (Culturelle) 1 cap BID 11/21/18 21:00 11/26/18 08:58 1 CAP Lamotrigine (LaMICtal) 100 mg HS 11/20/18 21:15 11/25/18 20:44 100 MG Lidocaine/ Epinephrine (LIDOCAINE 1%-EPI 1:100,000 Multi-Dose) 20 ml 1X ONCE 11/22/18 10:00 11/22/18 10:01 DC 11/22/18 11:00 4 ML Loperamide HCl (Imodium) 4 mg PRN QID PRN 11/20/18 09:45 11/26/18 06:53 4 MG Magnesium Sulfate 50 ml @ 25 mls/hr 1X ONCE 11/19/18 22:30 11/20/18 00:29 DC 11/19/18 23:00 25 MLS/HR Micafungin Sodium 100 mg/Dextrose 100 ml @ 100 mls/hr Q24H 11/20/18 11:30 11/24/18 11:31 DC 11/24/18 10:48 100 MLS/HR Midazolam HCl (Versed) 2 mg 1X ONCE 11/22/18 10:00 11/22/18 10:18 DC Morphine Sulfate (Morphine Sulfate) 1 mg PRN Q10MIN PRN 11/22/18 10:30 11/23/18 10:29 DC Nicotine (Nicoderm Cq 21mg) 1 patch PRN DAILY PRN 11/20/18 09:30 11/20/18 11:22 1 PATCH Olanzapine (ZyPREXA) 5 mg DAILY 11/21/18 09:00 11/26/18 08:58 5 MG Ondansetron HCl (Zofran) 4 mg PRN Q6HRS PRN 11/22/18 10:30 11/23/18 10:29 DC Oxycodone HCl (Roxicodone) 15 mg PRN Q4HRS PRN 11/20/18 09:45 Piperacillin Sod/ Tazobactam Sod (Zosyn Per Pharmacy) 1 each PRN DAILY PRN 11/20/18 09:30 11/20/18 11:10 DC Piperacillin Sod/ Tazobactam Sod 4.5 gm/Sodium Chloride 100 ml @ 200 mls/hr Q6HRS 11/20/18 10:00 11/20/18 11:10 DC 11/20/18 10:03 200 MLS/HR Prochlorperazine Edisylate (Compazine) 5 mg PACU PRN PRN 11/22/18 10:30 11/23/18 10:29 DC Propofol 60 ml @ As Directed STK-MED ONCE 11/22/18 10:19 11/22/18 10:20 DC Ringer's Solution 1,000 ml @ 30 mls/hr Q24H 11/22/18 10:17 11/22/18 12:25 DC Sodium Chloride 1,000 ml @ 1,000 mls/hr 1X ONCE 11/19/18 21:00 11/19/18 21:59 DC 11/19/18 22:36 1,000 MLS/HR Zolpidem Tartrate (Ambien) 5 mg HS 11/20/18 21:00 11/25/18 20:44 5 MG Labs: Micro RUN DATE: 11/23/18 PAGE 1 RUN TIME: 1710 [facility] [address] [place] [address] Pipo Clay M.D., Manager Outpatient PATIENT: DENNIS MEAD ACCT: [id number] LOC: [address] [place] [address] U: [id number] AGE/SX: 33/F ROOM: 565 RE11/19/[address]: MARILYN CARRENO MD : 1985 BED: 1 DIS: STATUS: ADM IN TLOC: SPEC #: [id number] SUJATA: 11/19/18 STATUS: TRAN REUsama #: [id number] RECD: 11/19/[address]: GYPSY ANTHONY DO SOURCE: BLOOD ENTR: 11/20/[address] [facility] [address]: MILLIE VILLAREAL MD [facility]: ORDERED: BLD CULT - LC Procedure Result BLOOD CULTURE LC Final Preliminary report Final report BLD CULT RESULT 1 Final Comment Coagulase negative Staphylococcus species. Performed at: [facility], [place], [place] [id number] Solution Specialist: SULEIMAN Goldsmith MD, Phone: [phone] Staphylococcus epidermidis Based on susceptibility to oxacillin this isolate would be susceptible to: *Penicillinase-stable penicillins, such as: Cloxacillin, Dicloxacillin, Nafcillin *Beta-lactam combination agents, such as: Amoxicillin-clavulanic acid, Ampicillin-sulbactam, Piperacillin-tazobactam *Oral cephems, such as: Cefaclor, Cefdinir, Cefpodoxime, Cefprozil, Cefuroxime, Cephalexin, Loracarbef *Parenteral cephems, such as: Cefazolin, Cefepime, Cefotaxime, Cefotetan, Ceftaroline, Ceftizoxime, Ceftriaxone, Cefuroxime *Carbapenems, such as: Doripenem, Ertapenem, Imipenem, Meropenem ANTIMICROBIAL SUSCEPTIBILITY Final Comment S = Susceptible; I = Intermediate; R = Resistant P = Positive; N = Negative MICS are expressed in micrograms per mL Antibiotic RSLT#1 RSLT#2 RSLT#3 RSLT#4 Ciprofloxacin R =4 Clindamycin S<=0.25 Erythromycin S<=0.25 Gentamicin S<=0.5 CONTINUED ON NEXT PAGE RUN DATE: 11/23/18 PAGE 2 RUN TIME: 1710 [facility] [address] [place] [address] Pipo Clay M.D., Manager Outpatient SPEC: [id number] PATIENT: DENNIS MEAD [id number] (Continued) Procedure Result -- ANTIMICROBIAL SUSCEPTIBILITY Final (continued) Levofloxacin I =4 Linezolid S =1 Oxacillin S<=0.25 Penicillin R>=0.5 Quinupristin/Dalfopristin S<=0.25 Rifampin S<=0.5 Tetracycline S<=1 Trimethoprim/Sulfa S =40 Vancomycin S =2 Performed at: DA - [facility] [address] [facility] [address], [place], [place] [id number] Solution Specialist: SULEIMAN Goldsmith MD, Phone: [phone] Objective: Assessment: 1. Gram-positive cocci bacteremia (4 of 4 bottles) from 11/19. coag neg staph ,MSSE 2. Possible infected at PowerPort. Port removed 11/22,cath tip cults pending 3. Fever.resolved 4. Leukocytosis.resolved 5. 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 6. Short bowel syndrome, on chronic TPN. 7. History of methicillin-resistant Staphylococcus aureus. 8. History of Clostridium difficile. Plan: Plan of Care DC Dapto Cefazolin Monitor for ab toxicities/side effects Repeat BC 11/21 negative so far Cath tip cult pending pain control per primary d/w Dr Cr d/w nursing staff VINOD HERNANDEZ MD Nov 26, 2018 11:19
[2018-11-26] MEDS: ceFAZolin SODIUM IV Push 1 GM VIAL. IVP SCH ×2 (13:42→21:14)
[2018-11-26] MEDS ORDERED: ceFAZolin SODIUM 1 GM in IV DEXTROSE 5% 50 ML IV SCH (14:00)
--- NOTE | 2018-11-26 15:41 | NUR ---
Spoke with RN. Pt is not discharging today. Plan on having port cath placed on Thursday.
[2018-11-26] MEDS: FAMOTIDINE 20 MG TABLET. PO SCH (21:02)
[2018-11-26] MEDS: lamoTRIgine 100 MG TABLET. PO SCH (21:02)
[2018-11-26] MEDS: ZOLPIDEM 5 MG TABLET. PO SCH (21:02)
[2018-11-27] MEDS: HYDROmorphone 2 MG/ML VIAL IVP PRN ×6 (01:41→22:37)
[2018-11-27] MEDS: fentaNYL PF VIAL 100 MCG/2 ML VIAL IV PRN ×6 (02:43→20:51)
[2018-11-27 03:00] VITALS: BP 133/83
[2018-11-27] MEDS: ceFAZolin SODIUM IV Push 1 GM VIAL. IVP SCH ×3 (05:45→20:52)
[2018-11-27 07:00] VITALS: BP 106/68
--- NOTE | 2018-11-27 07:26 | PDOC ---
PROGRESS NOTES Chief Complaint Chief Complaint IMPRESSION sepsis Bacteremia, 4/4 GPC BLD CULT RESULT 1 Final Comment Coagulase negative Staphylococcus species. Gram-positive cocci bacteremia (4 of 4 bottles) from 11/19. coag neg staph ,MSSE infected at PowerPort. 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 HEENT: Pupils equally round, normal conjunctivae. Oropharynx pink and moist. NECK: Supple. LUNGS: Clear to auscultation. HEART: S1, S2. ABDOMEN: Soft, nontender with bowel sounds present. EXTREMITIES: No gross edema or cyanosis. SKIN: Warm to touch. No signs of rash. NEUROLOGIC: Alert and oriented x 3. [facility] [employer]Port removal site nontender, without redness or swelling. General: Alert, Oriented X3, Cooperative, No acute distress Heart: Regular rate, Normal S1, Normal S2 Lungs: Clear Abdomen: Normal bowel sounds, Soft, No tenderness, No hepatosplenomegaly, Other (well healed incision) Extremities: No clubbing, No cyanosis, No edema Skin: No rashes, No breakdown Labs LABS SPDESC: ORDERED: BLD CULT - LC Procedure Result BLOOD CULTURE LC Final Preliminary report Final report BLD CULT RESULT 1 Final Comment Coagulase negative Staphylococcus species. Performed at: [facility] [place] [id number] [facility] [address], [place], [place] [id number] Calender Tender: SULEIMAN Goldsmith MD, Phone: [phone] Staphylococcus epidermidis Based on susceptibility to oxacillin this isolate would be susceptible to: *Penicillinase-stable penicillins, such as: Cloxacillin, Dicloxacillin, Nafcillin *Beta-lactam combination agents, such as: Amoxicillin-clavulanic acid, Ampicillin-sulbactam, Piperacillin-tazobactam *Oral cephems, such as: Cefaclor, Cefdinir, Cefpodoxime, Cefprozil, Cefuroxime, Cephalexin, Loracarbef *Parenteral cephems, such as: Cefazolin, Cefepime, Cefotaxime, Cefotetan, Ceftaroline, Ceftizoxime, Ceftriaxone, Cefuroxime *Carbapenems, such as: Doripenem, Ertapenem, Imipenem, Meropenem ANTIMICROBIAL SUSCEPTIBILITY Final Comment S = Susceptible; I = Intermediate; R = Resistant P = Positive; N = Negative MICS are expressed in micrograms per mL Antibiotic RSLT#1 RSLT#2 RSLT#3 RSLT#4 Ciprofloxacin R =4 Clindamycin S<=0.25 Erythromycin S<=0.25 Gentamicin S<=0.5 Assessment and Plan Assessmemt and Plan Problems Medical Problems: (1) Fever Status: Acute (2) Infection of venous access port Status: Acute (3) Sepsis Status: Acute Comment Review of Relevant I have reviewed the following items noni (where applicable) has been applied. Labs Microbiology 11/22/18 Aerobic Culture, Resulted Pending 11/22/18 Aerobic Culture Result 1 (NATE), Resulted Pending 11/22/18 Gram Stain - Final, Resulted 11/22/18 Gram Stain Result 1 (NATE) - Final, Resulted 11/22/18 Gram Stain Result 2 (NATE) - Final, Resulted 11/21/18 Blood Culture - Final, Complete NO GROWTH AFTER 5 DAYS Medications Current Medications Sodium Chloride 1,000 ml @ 1,000 mls/hr 1X ONCE IV Last administered on 11/19/18at 21:56; Start 11/19/18 at 21:00; Stop 11/19/18 at 21:59; Status DC Piperacillin Sod/ Tazobactam Sod 4.5 gm/Sodium Chloride 100 ml @ 200 mls/hr 1X ONCE IV Last administered on 11/19/18at 22:03; Start 11/19/18 at 21:30; Stop 11/19/18 at 21:59; Status DC Sodium Chloride 1,000 ml @ 1,000 mls/hr 1X ONCE IV Last administered on 11/19/18at 22:36; Start 11/19/18 at 21:00; Stop 11/19/18 at 21:59; Status DC Ibuprofen (Motrin) 400 mg 1X ONCE PO Last administered on 11/19/18at 21:56; Start 11/19/18 at 21:30; Stop 11/19/18 at 21:31; Status DC Fentanyl Citrate (Fentanyl 2ml Vial) 50 mcg 1X ONCE IV Last administered on 11/19/18at 22:03; Start 11/19/18 at 22:00; Stop 11/19/18 at 22:01; Status DC Fentanyl Citrate (Fentanyl 2ml Vial) 100 mcg STK-MED ONCE .ROUTE ; Start 11/19/18 at 21:53; Stop 11/19/18 at 21:53; Status DC Magnesium Sulfate 50 ml @ 25 mls/hr 1X ONCE IV Last administered on 11/19/18at 23:00; Start 11/19/18 at 22:30; Stop 11/20/18 at 00:29; Status DC Fentanyl Citrate (Fentanyl 2ml Vial) 50 mcg 1X ONCE IV Last administered on 11/19/18at 23:00; Start 11/19/18 at 22:45; Stop 11/19/18 at 22:46; Status DC Ondansetron HCl (Zofran) 4 mg PRN Q8HRS PRN IV NAUSEA/VOMITING Last administered on 11/19/18at 23:00; Start 11/19/18 at 22:45; Stop 11/20/18 at 22:44; Status DC Fentanyl Citrate (Fentanyl 2ml Vial) 75 mcg PRN Q2HR PRN IV MODERATE PAIN Last administered on 11/22/18 18:23; Start 11/19/18 at 22:45; Stop 11/22/18 at 20:48; Status DC Hydromorphone HCl (Dilaudid) 1 mg PRN Q4HRS PRN IVP SEVERE PAIN Last administered on 11/22/18 20:21; Start 11/20/18 at 09:15; Stop 11/22/18 at 20:48; Status DC Fluoxetine HCl (PROzac) 5 mg DAILY PEG Last administered on 11/26/18 08:58; Start 11/21/18 at 09:00 Lamotrigine (LaMICtal) 100 mg DAILY PO ; Start 11/21/18 at 09:00; Stop 11/20/18 at 21:05; Status DC Nicotine (Nicoderm Cq 21mg) 1 patch PRN DAILY PRN TD SMOKING CESSATION Last administered on 11/20/18at 11:22; Start 11/20/18 at 09:30 Olanzapine (ZyPREXA) 5 mg DAILY PO Last administered on 11/26/18 08:58; Start 11/21/18 at 09:00 Famotidine (Pepcid) 40 mg QHS PO Last administered on 11/26/18 21:02; Start 11/20/18 at 21:00 Loperamide HCl (Imodium) 4 mg PRN QID PRN PO DIARRHEA Last administered on 11/26/18 21:14; Start 11/20/18 at 09:45 Piperacillin Sod/ Tazobactam Sod (Zosyn Per Pharmacy) 1 each PRN DAILY PRN MC SEE COMMENTS; Start 11/20/18 at 09:30; Stop 11/20/18 at 11:10; Status DC Piperacillin Sod/ Tazobactam Sod 4.5 gm/Sodium Chloride 100 ml @ 200 mls/hr Q6HRS IV Last administered on 9/7/19at 10:03; Start 11/20/18 at 10:00; Stop 11/20/18 at 11:10; Status DC Zolpidem Tartrate (Ambien) 5 mg HS PO Last administered on 11/26/18at 21:02; Start 11/20/18 at 21:00 Diphenhydramine HCl (Benadryl) 25 mg PRN Q6HRS PRN PO ITCHING; Start 11/20/18 at 09:45 Oxycodone HCl (Roxicodone) 15 mg PRN Q4HRS PRN PO PAIN; Start 11/20/18 at 09:45 Enoxaparin Sodium (Lovenox Per Pharmacy Prophylaxis Dosing) 1 each PRN DAILY PRN MC SEE COMMENTS; Start 11/20/18 at 09:45 Enoxaparin Sodium (Lovenox 40mg Syringe) 40 mg Q24H SQ ; Start 11/20/18 at 10:00 Daptomycin 300 mg/ Sodium Chloride 50 ml @ 100 mls/hr Q24H IV Last administered on 11/25/18at 12:31; Start 11/20/18 at 13:00; Stop 11/26/18 at 11:20; Status DC Micafungin Sodium 100 mg/Dextrose 100 ml @ 100 mls/hr Q24H IV Last administered on 11/24/18at 10:48; Start 11/20/18 at 11:30; Stop 11/24/18 at 11:31; Status DC Lamotrigine (LaMICtal) 100 mg STK-MED ONCE .ROUTE ; Start 11/20/18 at 21:03; Stop 11/20/18 at 21:03; Status DC Lamotrigine (LaMICtal) 100 mg HS PO Last administered on 11/26/18at 21:02; Start 11/20/18 at 21:15 Hydromorphone HCl (Dilaudid) 1 mg 1X ONCE IVP Last administered on 11/21/18at 09:40; Start 11/21/18 at 09:30; Stop 11/21/18 at 09:31; Status DC Lactobacillus Rhamnosus (Culturelle) 1 cap BID PO Last administered on 11/26/18at 21:02; Start 11/21/18 at 21:00 Midazolam HCl (Versed) 2 mg STK-MED ONCE .ROUTE ; Start 11/22/18 at 09:47; Stop 11/22/18 at 09:48; Status DC Fentanyl Citrate (Fentanyl 2ml Vial) 100 mcg STK-MED ONCE .ROUTE ; Start 11/22/18 at 09:47; Stop 11/22/18 at 09:48; Status DC Lidocaine/ Epinephrine (LIDOCAINE 1%-EPI 1:100,000 Multi-Dose) 20 ml STK-MED ONCE .ROUTE ; Start 11/22/18 at 09:48; Stop 11/22/18 at 09:48; Status DC Midazolam HCl (Versed) 2 mg 1X ONCE IV ; Start 11/22/18 at 10:00; Stop 11/22/18 at 10:18; Status DC Fentanyl Citrate (Fentanyl 2ml Vial) 100 mcg 1X ONCE IV ; Start 11/22/18 at 10:00; Stop 11/22/18 at 10:18; Status DC Lidocaine/ Epinephrine (LIDOCAINE 1%-EPI 1:100,000 Multi-Dose) 20 ml 1X ONCE INJ Last administered on 11/22/18at 11:00; Start 11/22/18 at 10:00; Stop 11/22/18 at 10:01; Status DC Ondansetron HCl (Zofran) 4 mg PRN Q6HRS PRN IV NAUSEA/VOMITING; Start 11/22/18 at 10:30; Stop 11/23/18 at 10:29; Status DC Fentanyl Citrate (Fentanyl 2ml Vial) 25 mcg PRN Q5MIN PRN IV MILD PAIN 1-3; St art 11/22/18 at 10:30; Stop 11/22/18 at 12:25; Status DC Fentanyl Citrate (Fentanyl 2ml Vial) 50 mcg PRN Q5MIN PRN IV MODERATE TO SEVERE PAIN Last administered on 11/22/18at 11:53; Start 11/22/18 at 10:30; Stop 11/22/18 at 12:25; Status DC Morphine Sulfate (Morphine Sulfate) 1 mg PRN Q10MIN PRN IV SEVERE PAIN 7-10; Start 11/22/18 at 10:30; Stop 11/23/18 at 10:29; Status DC Ringer's Solution 1,000 ml @ 30 mls/hr Q24H IV ; Start 11/22/18 at 10:17; Stop 11/22/18 at 12:25; Status DC Hydromorphone HCl (Dilaudid) 0.5 mg PRN Q10MIN PRN IV SEV PAIN, Second choice Last administered on 11/22/18at 16:18; Start 11/22/18 at 10:30; Stop 11/23/18 at 10 :29; Status DC Prochlorperazine Edisylate (Compazine) 5 mg PACU PRN PRN IV NAUSEA, MRX1; Start 11/22/18 at 10:30; Stop 11/23/18 at 10:29; Status DC Propofol 60 ml @ As Directed STK-MED ONCE IV ; Start 11/22/18 at 10:19; Stop 11/22/18 at 10:20; Status DC Fentanyl Citrate (Fentanyl 2ml Vial) 100 mcg STK-MED ONCE .ROUTE ; Start 11/22/18 at 11:37; Stop 11/22/18 at 11:38; Status DC Fentanyl Citrate (Fentanyl 2ml Vial) 100 mcg PRN Q2HR PRN IV MODERATE PAIN Last administered on 11/27/18at 06:33; Start 11/22/18 at 20:45 Hydromorphone HCl (Dilaudid) 1.5 mg PRN Q4HRS PRN IVP SEVERE PAIN Last administered on 11/27/18at 05:45; Start 11/22/18 at 20:45 Cefazolin Sodium 1 gm/Dextrose 50 ml @ 100 mls/hr Q8HRS IV ; Start 11/26/18 at 14:00; Status UNV Cefazolin Sodium (Ancef) 1 gm Q8HRS IVP Last administered on 11/27/18at 05:45; Start 11/26/18 at 14:00 Active Scripts Active Culturelle (Lactobacillus Rhamnosus Gg) 1 Each Cap.sprink 1 Cap PO BID 14 Days Oxycodone Hcl Immed.release (Oxycodone Hcl) 15 Mg Tablet 15 Mg PO QID Reported NICODERM CQ 21mg (Nicotine) 1 Each Patch.td24 1 Patch TD PRN DAILY PRN Prozac (Fluoxetine Hcl) 10 Mg Capsule 5 Mg PO DAILY Famotidine 40 Mg Tablet 40 Mg PO HS Olanzapine 5 Mg Tablet 5 Mg PO DAILY Lamictal (Lamotrigine) 100 Mg Tablet 1 Tab PO DAILY Loperamide (Loperamide Hcl) 2 Mg Tablet 4 Mg PO PRN QID PRN Vitals/I & O Vital Sign - Last 24 Hours 11/26/18 11/26/18 11/26/18 11/26/18 07:31 08:30 08:58 10:15 O2 Delivery Room Air Room Air Room Air Room Air 11/26/18 11/26/18 11/26/18 11/26/18 10:16 11:00 11:33 12:15 Temp 98.5 98.5 Pulse 78 Resp 20 B/P (MAP) 155/104 (121) Pulse Ox 99 O2 Delivery Room Air Room Air Room Air Room Air 11/26/18 11/26/18 11/26/18 11/26/18 12:58 13:00 13:43 14:58 O2 Delivery Room Air Room Air Room Air Room Air 11/26/18 11/26/18 11/26/18 11/26/18 15:00 15:39 17:02 17:07 Temp 98.9 98.9 Pulse 78 Resp 17 B/P (MAP) 128/77 (94) Pulse Ox 97 O2 Delivery Room Air Room Air Room Air Room Air 11/26/18 11/26/18 11/26/18 11/26/18 18:28 18:28 19:00 19:06 Temp 98.9 98.9 Pulse 78 Resp 17 B/P (MAP) 128/77 (94) Pulse Ox 97 O2 Delivery Room Air Room Air Room Air Room Air 11/26/18 11/26/18 11/26/18 11/26/18 20:00 20:00 21:14 23:00 Temp 98.9 98.9 98.9 98.9 Pulse 78 85 Resp 17 20 17 B/P (MAP) 128/93 (105) 128/77 (94) Pulse Ox 97 97 96 O2 Delivery Room Air Room Air Room Air Room Air 11/26/18 11/27/18 11/27/18 11/27/18 23:24 01:41 02:43 03:00 Temp 98.5 98.5 Pulse 85 Resp 20 18 18 17 B/P (MAP) 133/83 (100) Pulse Ox 97 97 97 96 O2 Delivery Room Air Room Air Room Air Room Air 11/27/18 11/27/18 11/27/18 11/27/18 05:37 05:38 05:38 05:39 Resp 18 18 20 18 Pulse Ox 96 96 96 96 O2 Delivery Room Air Room Air Room Air Room Air 11/27/18 11/27/18 11/27/18 05:40 05:45 06:33 Resp 18 20 20 Pulse Ox 96 96 96 O2 Delivery Room Air Room Air Room Air Intake and Output 11/26/18 11/26/18 11/27/18 14:59 22:59 06:59 Intake Total 300 ml 810 ml Balance 300 ml 810 ml ANUPAMA QUINONES MD Nov 27, 2018 07:26
[2018-11-27] MEDS: OLANZapine 5 MG TABLET PO SCH (08:54)
[2018-11-27] MEDS: LACTOBACILLUS RHAMNOSUS GG 1 CAPSULE. PO SCH ×2 (08:54→20:50)
[2018-11-27] MEDS: ENOXAPARIN 40 MG/0.4 ML SYRINGE. SQ SCH (09:58)
--- NOTE | 2018-11-27 10:33 | PDOC ---
Infectious Disease Note Subjective: Subjective pt says feels better wants portacath this admission for tpn no fevers or pain port cath site removal site no sob or cough no change in her bm ROS: ROS Negative otherwise. Vital Signs: Vital Signs Vital Signs Date Time Temp Pulse Resp B/P (MAP) Pulse Ox O2 Delivery O2 Flow Rate FiO2 11/27/18 10:04 18 Room Air 11/27/18 07:54 96 11/27/18 07:00 98.3 82 106/68 (81) 98.3 Physical Exam: PHYSICAL EXAM GENERAL: The patient is sitting upright in bed, alert, no apparent distress. HEENT: Pupils equally round, normal conjunctivae. Oropharynx pink and moist. NECK: Supple. LUNGS: Clear to auscultation. HEART: S1, S2. ABDOMEN: Soft, nontender with bowel sounds present. EXTREMITIES: No gross edema or cyanosis. SKIN: Warm to touch. No signs of rash. NEUROLOGIC: Alert and oriented x 3. LIJ [employer]Port removal site nontender, without redness or swelling. Medications: Inpatient Meds: Current Medications Medications (Trade) Dose Ordered Sig/Caroline Start Time Stop Time Status Last Admin Dose Admin Cefazolin Sodium (Ancef) 1 gm Q8HRS 11/26/18 14:00 11/27/18 05:45 1 GM Cefazolin Sodium 1 gm/Dextrose 50 ml @ 100 mls/hr Q8HRS 11/26/18 14:00 UNV Daptomycin 300 mg/ Sodium Chloride 50 ml @ 100 mls/hr Q24H 11/20/18 13:00 11/26/18 11:20 DC 11/25/18 12:31 100 MLS/HR Diphenhydramine HCl (Benadryl) 25 mg PRN Q6HRS PRN 11/20/18 09:45 Enoxaparin Sodium (Lovenox 40mg Syringe) 40 mg Q24H 11/20/18 10:00 Enoxaparin Sodium (Lovenox Per Pharmacy Prophylaxis Dosing) 1 each PRN DAILY PRN 11/20/18 09:45 Famotidine (Pepcid) 40 mg QHS 11/20/18 21:00 11/26/18 21:02 40 MG Fentanyl Citrate (Fentanyl 2ml Vial) 100 mcg PRN Q2HR PRN 11/22/18 20:45 11/27/18 06:33 100 MCG Fluoxetine HCl (PROzac) 5 mg DAILY 11/21/18 09:00 11/27/18 08:56 5 MG Hydromorphone HCl (Dilaudid) 1.5 mg PRN Q4HRS PRN 11/22/18 20:45 11/27/18 10:04 1.5 MG Ibuprofen (Motrin) 400 mg 1X ONCE 11/19/18 21:30 11/19/18 21:31 DC 11/19/18 21:56 400 MG Lactobacillus Rhamnosus (Culturelle) 1 cap BID 11/21/18 21:00 11/27/18 08:56 1 CAP Lamotrigine (LaMICtal) 100 mg HS 11/20/18 21:15 11/26/18 21:02 100 MG Lidocaine/ Epinephrine (LIDOCAINE 1%-EPI 1:100,000 Multi-Dose) 20 ml 1X ONCE 11/22/18 10:00 11/22/18 10:01 DC 11/22/18 11:00 4 ML Loperamide HCl (Imodium) 4 mg PRN QID PRN 11/20/18 09:45 11/26/18 21:14 4 MG Magnesium Sulfate 50 ml @ 25 mls/hr 1X ONCE 11/19/18 22:30 11/20/18 00:29 DC 11/19/18 23:00 25 MLS/HR Micafungin Sodium 100 mg/Dextrose 100 ml @ 100 mls/hr Q24H 11/20/18 11:30 11/24/18 11:31 DC 11/24/18 10:48 100 MLS/HR Midazolam HCl (Versed) 2 mg 1X ONCE 11/22/18 10:00 11/22/18 10:18 DC Morphine Sulfate (Morphine Sulfate) 1 mg PRN Q10MIN PRN 11/22/18 10:30 11/23/18 10:29 DC Nicotine (Nicoderm Cq 21mg) 1 patch PRN DAILY PRN 11/20/18 09:30 11/20/18 11:22 1 PATCH Olanzapine (ZyPREXA) 5 mg DAILY 11/21/18 09:00 11/27/18 08:56 5 MG Ondansetron HCl (Zofran) 4 mg PRN Q6HRS PRN 11/22/18 10:30 11/23/18 10:29 DC Oxycodone HCl (Roxicodone) 15 mg PRN Q4HRS PRN 11/20/18 09:45 Piperacillin Sod/ Tazobactam Sod (Zosyn Per Pharmacy) 1 each PRN DAILY PRN 11/20/18 09:30 11/20/18 11:10 DC Piperacillin Sod/ Tazobactam Sod 4.5 gm/Sodium Chloride 100 ml @ 200 mls/hr Q6HRS 11/20/18 10:00 11/20/18 11:10 DC 11/20/18 10:03 200 MLS/HR Prochlorperazine Edisylate (Compazine) 5 mg PACU PRN PRN 11/22/18 10:30 11/23/18 10:29 DC Propofol 60 ml @ As Directed STK-MED ONCE 11/22/18 10:19 11/22/18 10:20 DC Ringer's Solution 1,000 ml @ 30 mls/hr Q24H 11/22/18 10:17 11/22/18 12:25 DC Sodium Chloride 1,000 ml @ 1,000 mls/hr 1X ONCE 11/19/18 21:00 11/19/18 21:59 DC 11/19/18 22:36 1,000 MLS/HR Zolpidem Tartrate (Ambien) 5 mg HS 11/20/18 21:00 11/26/18 21:02 5 MG Labs: Micro RUN DATE: 11/23/18 PAGE 1 RUN TIME: 1710 [facility] [address] [place] [address] Pipo Clay M.D., Mica Washer Gluer PATIENT: DENNIS MEAD ACCT: [id number] LOC: [address] [place] [address] U: [id number] AGE/SX: 33/F ROOM: 565 RE11/19/[address]: MARILYN CARRENO MD : 1985 BED: 1 DIS: STATUS: ADM IN TLOC: SPEC #: [id number] SUJATA: 11/19/18 STATUS: COMP REQ #: [id number] RECD: 11/19/[address]: GYPSY ANTHONY DO SOURCE: BLOOD ENTR: 11/20/[address] [facility] [address]: MILLIE VILLAREAL MD SPDESC: ORDERED: BLD CULT - LC Procedure Result BLOOD CULTURE LC Final Preliminary report Final report BLD CULT RESULT 1 Final Comment Coagulase negative Staphylococcus species. Performed at: [facility] [place] [id number] [facility] [address], [place], [place] [id number] [employer] Manager: SULEIMAN Goldsmith MD, Phone: [phone] Staphylococcus epidermidis Based on susceptibility to oxacillin this isolate would be susceptible to: *Penicillinase-stable penicillins, such as: Cloxacillin, Dicloxacillin, Nafcillin *Beta-lactam combination agents, such as: Amoxicillin-clavulanic acid, Ampicillin-sulbactam, Piperacillin-tazobactam *Oral cephems, such as: Cefaclor, Cefdinir, Cefpodoxime, Cefprozil, Cefuroxime, Cephalexin, Loracarbef *Parenteral cephems, such as: Cefazolin, Cefepime, Cefotaxime, Cefotetan, Ceftaroline, Ceftizoxime, Ceftriaxone, Cefuroxime *Carbapenems, such as: Doripenem, Ertapenem, Imipenem, Meropenem ANTIMICROBIAL SUSCEPTIBILITY Final Comment S = Susceptible; I = Intermediate; R = Resistant P = Positive; N = Negative MICS are expressed in micrograms per mL Antibiotic RSLT#1 RSLT#2 RSLT#3 RSLT#4 Ciprofloxacin R =4 Clindamycin S<=0.25 Erythromycin S<=0.25 Gentamicin S<=0.5 CONTINUED ON NEXT PAGE RUN DATE: 11/23/18 PAGE 2 RUN TIME: 17[facility] [address] [place] [address] Pipo Clay M.D., Mica Washer Gluer SPEC: [id number] PATIENT: DENNIS MEAD Sayda [id number] (Continued) Procedure Result ANTIMICROBIAL SUSCEPTIBILITY Final (continued) Levofloxacin I =4 Linezolid S =1 Oxacillin S<=0.25 Penicillin R>=0.5 Quinupristin/Dalfopristin S<=0.25 Rifampin S<=0.5 Tetracycline S<=1 Trimethoprim/Sulfa S =40 Vancomycin S =2 Performed at: [facility] [address], [place], [place] [id number] [employer] Manager: SULEIMAN Godlsmith MD, Phone: [phone] Objective: Assessment: 1. Gram-positive cocci bacteremia (4 of 4 bottles) from 11/19. coag neg staph ,MSSE 2. Possible infected at PowerPort. Port removed 11/22,cath tip cults pending 3. Fever.resolved 4. Leukocytosis.resolved 5. 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 6. Short bowel syndrome, on chronic TPN. 7. History of methicillin-resistant Staphylococcus aureus. 8. History of Clostridium difficile. Plan: Plan of Care Cefazolin Monitor for ab toxicities/side effects Repeat BC 11/21 negative so far Cath tip cult pending pain control per primary d/w nursing staff VINOD HERNANDEZ MD Nov 27, 2018 10:33
[2018-11-27 11:00] VITALS: BP 120/80
[2018-11-27] MEDS: LOPERAMIDE 2 MG CAPSULE PO PRN ×2 (13:09→22:48)
[2018-11-27 15:00] VITALS: BP 97/64
--- NOTE | 2018-11-27 16:31 | NUR ---
1400 dilaudid scan did not save, entered manually.
[2018-11-27 19:00] VITALS: BP 109/68
[2018-11-27] MEDS: lamoTRIgine 100 MG TABLET. PO SCH (20:50)
[2018-11-27] MEDS: FAMOTIDINE 20 MG TABLET. PO SCH (20:50)
[2018-11-27] MEDS: ZOLPIDEM 5 MG TABLET. PO SCH (20:51)
[2018-11-27 23:09] VITALS: BP 117/78
[2018-11-28] MEDS: fentaNYL PF VIAL 100 MCG/2 ML VIAL IV PRN ×7 (00:02→21:46)
[2018-11-28] MEDS: LOPERAMIDE 2 MG CAPSULE PO PRN ×3 (02:41→20:27)
[2018-11-28] MEDS: HYDROmorphone 2 MG/ML VIAL IVP PRN ×5 (02:42→20:30)
[2018-11-28 03:13] VITALS: BP 125/85
[2018-11-28] MEDS: ceFAZolin SODIUM IV Push 1 GM VIAL. IVP SCH ×3 (06:19→20:34)
[2018-11-28 07:00] VITALS: BP 107/58
--- NOTE | 2018-11-28 08:35 | PDOC ---
PROGRESS NOTES Chief Complaint Chief Complaint IMPRESSION sepsis Bacteremia, 4/4 GPC BLD CULT RESULT 1 Final Comment Coagulase negative Staphylococcus species. Gram-positive cocci bacteremia (4 of 4 bottles) from 11/19. coag neg staph ,MSSE infected at PowerPort. Port removed 11/22,cath tip cults pending short gut syndrome, malnutrition, mild, albumin 3.4 on admit history of uterine cancer, s/p surg, chemo and radiation, now with post effect HX MOLAR bipolar disorder, tobacco use disorder CONT IV ANCEF shan cath tomorrow 11/29 29 MIN PT EXAM, CHART REVIEW, > 50% OF TIME SPENT WITH EXAM, CHART REVIEW, PT CARE COORDINATION History of Present Illness History of Present Illness transferred tele Eating good she claims Port out, on IVF, no redness left subclavian area GPC ID and sensitivities pending On dapto and micafungin NO fevers Normal BMI PLAN Dapto, micafungin 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 HEENT: Pupils equally round, normal conjunctivae. Oropharynx pink and moist. NECK: Supple. LUNGS: Clear to auscultation. HEART: S1, S2. ABDOMEN: Soft, nontender with bowel sounds present. EXTREMITIES: No gross edema or cyanosis. SKIN: Warm to touch. No signs of rash. NEUROLOGIC: Alert and oriented x 3. LIJ PowerPort removal site nontender, without redness or swelling. General: Alert, Oriented X3, Cooperative, No acute distress Heart: Regular rate, Normal S1, Normal S2 Lungs: Clear Abdomen: Normal bowel sounds, Soft, No tenderness, No hepatosplenomegaly, Other (well healed incision) Extremities: No clubbing, No cyanosis, No edema Skin: No rashes, No breakdown Labs LABS ORDERED: BLD CULT - LC Procedure Result BLOOD CULTURE LC Final Preliminary report Final report BLD CULT RESULT 1 Final Comment Coagulase negative Staphylococcus species. Performed at: [facility], [place] [address] Biology Professor: SULEIMAN Goldsmith MD, Phone: [phone] Staphylococcus epidermidis Based on susceptibility to oxacillin this isolate would be susceptible to: *Penicillinase-stable penicillins, such as: Cloxacillin, Dicloxacillin, Nafcillin *Beta-lactam combination agents, such as: Amoxicillin-clavulanic acid, Ampicillin-sulbactam, Piperacillin-tazobactam *Oral cephems, such as: Cefaclor, Cefdinir, Cefpodoxime, Cefprozil, Cefuroxime, Cephalexin, Loracarbef *Parenteral cephems, such as: Cefazolin, Cefepime, Cefotaxime, Cefotetan, Ceftaroline, Ceftizoxime, Ceftriaxone, Cefuroxime *Carbapenems, such as: Doripenem, Ertapenem, Imipenem, Meropenem ANTIMICROBIAL SUSCEPTIBILITY Final Comment S = Susceptible; I = Intermediate; R = Resistant P = Positive; N = Negative MICS are expressed in micrograms per mL Antibiotic RSLT#1 RSLT#2 RSLT#3 RSLT#4 Ciprofloxacin R =4 Clindamycin S<=0.25 Erythromycin S<=0.25 Gentamicin S<=0.5 SPEC #: [id number] SUJATA: 11/22/183 STATUS: KIKE HARRELL #: [id number] RECD: 11/22/[address] [facility] [address]: LAUREN FITCH MD SOURCE: CATH TIP ENTR: 11/22/18-[address] [facility] [address]: ZOHREH HERNANDEZ MD [facility]: SALMA LOPES MD,MILLIE ENRIQUEZ,JEWELS CARREON,MARILYN Puentes MD ORDERED: AEROBIC CULT GS COMMENTS: CATH TIP Procedure Result AEROBIC CULTURE Preliminary Preliminary report AEROBIC RES 1 Preliminary Gram negative rods 2+ AEROBIC RES 2 Preliminary Mixed skin anna 1+ Performed at: [facility] [place] [id number] Biology Professor: SULEIMAN Goldsmith MD, Phone: [phone] GRAM STAIN Final Final report GRAM STAIN RESULT 1 Final Comment No white blood cells seen. GRAM STAIN RESULT 2 Final No organisms seen Performed at: [place] [address] Biology Professor: SULEIMAN Goldsmith MD, Phone: [phone] Assessment and Plan Assessmemt and Plan Problems Medical Problems: (1) Fever Status: Acute (2) Infection of venous access port Status: Acute (3) Sepsis Status: Acute Comment Review of Relevant I have reviewed the following items noni (where applicable) has been applied. Labs Microbiology 9/9/19 Aerobic Culture - Preliminary, Resulted 11/22/18 Aerobic Culture Result 1 (NATE) - Preliminary, Resulted 11/22/18 Aerobic Culture Result 2 (NATE) - Preliminary, Resulted 11/22/18 Gram Stain - Final, Resulted 11/22/18 Gram Stain Result 1 (NATE) - Final, Resulted 11/22/18 Gram Stain Result 2 (NATE) - Final, Resulted 11/21/18 Blood Culture - Final, Complete NO GROWTH AFTER 5 DAYS Medications Current Medications Sodium Chloride 1,000 ml @ 1,000 mls/hr 1X ONCE IV Last administered on 11/19/18 21:56; Start 11/19/18 at 21:00; Stop 11/19/18 at 21:59; Status DC Piperacillin Sod/ Tazobactam Sod 4.5 gm/Sodium Chloride 100 ml @ 200 mls/hr 1X ONCE IV Last administered on 11/19/18at 22:03; Start 11/19/18 at 21:30; Stop 11/19/18 at 21:59; Status DC Sodium Chloride 1,000 ml @ 1,000 mls/hr 1X ONCE IV Last administered on 11/19/18at 22:36; Start 11/19/18 at 21:00; Stop 11/19/18 at 21:59; Status DC Ibuprofen (Motrin) 400 mg 1X ONCE PO Last administered on 11/19/18 21:56; Start 11/19/18 at 21:30; Stop 11/19/18 at 21:31; Status DC Fentanyl Citrate (Fentanyl 2ml Vial) 50 mcg 1X ONCE IV Last administered on 11/19/18at 22:03; Start 11/19/18 at 22:00; Stop 11/19/18 at 22:01; Status DC Fentanyl Citrate (Fentanyl 2ml Vial) 100 mcg STK-MED ONCE .ROUTE ; Start 11/19/18 at 21:53; Stop 11/19/18 at 21:53; Status DC Magnesium Sulfate 50 ml @ 25 mls/hr 1X ONCE IV Last administered on 11/19/18at 23:00; Start 11/19/18 at 22:30; Stop 11/20/18 at 00:29; Status DC Fentanyl Citrate (Fentanyl 2ml Vial) 50 mcg 1X ONCE IV Last administered on 11/19/18at 23:00; Start 11/19/18 at 22:45; Stop 11/19/18 at 22:46; Status DC Ondansetron HCl (Zofran) 4 mg PRN Q8HRS PRN IV NAUSEA/VOMITING Last admin istered on 11/19/18at 23:00; Start 11/19/18 at 22:45; Stop 11/20/18 at 22:44; Status DC Fentanyl Citrate (Fentanyl 2ml Vial) 75 mcg PRN Q2HR PRN IV MODERATE PAIN Last administered on 11/22/18at 18:23; Start 11/19/18 at 22:45; Stop 11/22/18 at 20:48; Status DC Hydromorphone HCl (Dilaudid) 1 mg PRN Q4HRS PRN IVP SEVERE PAIN Last administered on 11/22/18at 20:21; Start 11/20/18 at 09:15; Stop 11/22/18 at 20:48; Status DC Fluoxetine HCl (PROzac) 5 mg DAILY PEG Last administered on 11/27/18at 08:56; Start 11/21/18 at 09:00 Lamotrigine (LaMICtal) 100 mg DAILY PO ; Start 11/21/18 at 09:00; Stop 11/20/18 at 21:05; Status DC Nicotine (Nicoderm Cq 21mg) 1 patch PRN DAILY PRN TD SMOKING CESSATION Last administered on 11/20/18at 11:22; Start 11/20/18 at 09:30 Olanzapine (ZyPREXA) 5 mg DAILY PO Last administered on 11/27/18at 08:56; Start 11/21/18 at 09:00 Famotidine (Pepcid) 40 mg QHS PO Last administered on 11/27/18at 21:08; Start 11/20/18 at 21:00 Loperamide HCl (Imodium) 4 mg PRN QID PRN PO DIARRHEA Last administered on 11/28/18at 02:42; Start 11/20/18 at 09:45 Piperacillin Sod/ Tazobactam Sod (Zosyn Per Pharmacy) 1 each PRN DAILY PRN MC SEE COMMENTS; Start 11/20/18 at 09:30; Stop 11/20/18 at 11:10; Status DC Piperacillin Sod/ Tazobactam Sod 4.5 gm/Sodium Chloride 100 ml @ 200 mls/hr Q6HRS IV Last administered on 11/20/18at 10:03; Start 11/20/18 at 10:00; Stop 11/20/18 at 11:10; Status DC Zolpidem Tartrate (Ambien) 5 mg HS PO Last administered on 11/27/18at 21:08; Start 11/20/18 at 21:00 Diphenhydramine HCl (Benadryl) 25 mg PRN Q6HRS PRN PO ITCHING; Start 11/20/18 at 09:45 Oxycodone HCl (Roxicodone) 15 mg PRN Q4HRS PRN PO PAIN; Start 11/20/18 at 09:45 Enoxaparin Sodium (Lovenox Per Pharmacy Prophylaxis Dosing) 1 each PRN DAILY PRN MC SEE COMMENTS; Start 11/20/18 at 09:45 Enoxaparin Sodium (Lovenox 40mg Syringe) 40 mg Q24H SQ ; Start 11/20/18 at 10:00 Daptomycin 300 mg/ Sodium Chloride 50 ml @ 100 mls/hr Q24H IV Last administered on 11/25/18at 12:31; Start 11/20/18 at 13:00; Stop 11/26/18 at 11:20; Status DC Micafungin Sodium 100 mg/Dextrose 100 ml @ 100 mls/hr Q24H IV Last administered on 11/24/18at 10:48; Start 11/20/18 at 11:30; Stop 11/24/18 at 11:31; Status DC Lamotrigine (LaMICtal) 100 mg STK-MED ONCE .ROUTE ; Start 11/20/18 at 21:03; Stop 11/20/18 at 21:03; Status DC Lamotrigine (LaMICtal) 100 mg HS PO Last administered on 11/27/18at 21:08; Start 11/20/18 at 21:15 Hydromorphone HCl (Dilaudid) 1 mg 1X ONCE IVP Last administered on 11/21/18at 09:40; Start 11/21/18 at 09:30; Stop 11/21/18 at 09:31; Status DC Lactobacillus Rhamnosus (Culturelle) 1 cap BID PO Last administered on 11/27/18at 21:08; Start 11/21/18 at 21:00 Midazolam HCl (Versed) 2 mg STK-MED ONCE .ROUTE ; Start 11/22/18 at 09:47; Stop 11/22/18 at 09:48; Status DC Fentanyl Citrate (Fentanyl 2ml Vial) 100 mcg STK-MED ONCE .ROUTE ; Start 11/22/18 at 09:47; Stop 11/22/18 at 09:48; Status DC Lidocaine/ Epinephrine (LIDOCAINE 1%-EPI 1:100,000 Multi-Dose) 20 ml STK-MED ONCE .ROUTE ; Start 11/22/18 at 09:48; Stop 11/22/18 at 09:48; Status DC Midazolam HCl (Versed) 2 mg 1X ONCE IV ; Start 11/22/18 at 10:00; Stop 11/22/18 at 10:18; Status DC Fentanyl Citrate (Fentanyl 2ml Vial) 100 mcg 1X ONCE IV ; Start 11/22/18 at 10:00; Stop 11/22/18 at 10:18; Status DC Lidocaine/ Epinephrine (LIDOCAINE 1%-EPI 1:100,000 Multi-Dose) 20 ml 1X ONCE INJ Last administered on 11/22/18at 11:00; Start 11/22/18 at 10:00; Stop 11/22/18 at 10:01; Status DC Ondansetron HCl (Zofran) 4 mg PRN Q6HRS PRN IV NAUSEA/VOMITING; Start 11/22/18 at 10:30; Stop 11/23/18 at 10:29; Status DC Fentanyl Citrate (Fentanyl 2ml Vial) 25 mcg PRN Q5MIN PRN IV MILD PAIN 1-3; Start 11/22/18 at 10:30; Stop 11/22/18 at 12:25; Status DC Fentanyl Citrate (Fentanyl 2ml Vial) 50 mcg PRN Q5MIN PRN IV MODERATE TO SEVERE PAIN Last administered on 11/22/18at 11:53; Start 11/22/18 at 10:30; Stop 11/22/18 at 12:25; Status DC Morphine Sulfate (Morphine Sulfate) 1 mg PRN Q10MIN PRN IV SEVERE PAIN 7-10; Start 11/22/18 at 10:30; Stop 11/23/18 at 10:29; Status DC Ringer's Solution 1,000 ml @ 30 mls/hr Q24H IV ; Start 11/22/18 at 10:17; Stop 11/22/18 at 12:25; Status DC Hydromorphone HCl (Dilaudid) 0.5 mg PRN Q10MIN PRN IV SEV PAIN, Second choice Last administered on 11/22/18at 16:18; Start 11/22/18 at 10:30; Stop 11/23/18 at 10:29; Status DC Prochlorperazine Edisylate (Compazine) 5 mg PACU PRN PRN IV NAUSEA, MRX1; Start 11/22/18 at 10:30; Stop 11/23/18 at 10:29; Status DC Propofol 60 ml @ As Directed STK-MED ONCE IV ; Start 11/22/18 at 10:19; Stop 11/22/18 at 10:20; Status DC Fentanyl Citrate (Fentanyl 2ml Vial) 100 mcg STK-MED ONCE .ROUTE ; Start 11/22/18 at 11:37; Stop 11/22/18 at 11:38; Status DC Fentanyl Citrate (Fentanyl 2ml Vial) 100 mcg PRN Q2HR PRN IV MODERATE PAIN Last administered on 11/28/18at 03:42; Start 11/22/18 at 20:45 Hydromorphone HCl (Dilaudid) 1.5 mg PRN Q4HRS PRN IVP SEVERE PAIN Last administered on 11/28/18at 06:59; Start 11/22/18 at 20:45 Cefazolin Sodium 1 gm/Dextrose 50 ml @ 100 mls/hr Q8HRS IV ; Start 11/26/18 at 14:00; Status UNV Cefazolin Sodium (Ancef) 1 gm Q8HRS IVP Last administered on 11/28/18at 06:19; Start 11/26/18 at 14:00 Ondansetron HCl (Zofran) 4 mg PRN Q6HRS PRN IV NAUSEA/VOMITING; Start 11/29/18 at 07:00; Stop 11/30/18 at 06:59 Fentanyl Citrate (Fentanyl 2ml Vial) 25 mcg PRN Q5MIN PRN IV MILD PAIN 1-3; Start 11/29/18 at 07:00; Stop 11/30/18 at 06:59 Fentanyl Citrate (Fentanyl 2ml Vial) 50 mcg PRN Q5MIN PRN IV MODERATE TO SEVERE PAIN; Start 11/29/18 at 07:00; Stop 11/30/18 at 06:59 Morphine Sulfate (Morphine Sulfate) 1 mg PRN Q10MIN PRN IV SEVERE PAIN 7-10; Start 11/29/18 at 07:00; Stop 11/30/18 at 06:59 Ringer's Solution 1,000 ml @ 30 mls/hr Q24H IV ; Start 11/29/18 at 07:00; Stop 11/29/18 at 18:59 Hydromorphone HCl (Dilaudid) 0.5 mg PRN Q10MIN PRN IV SEV PAIN, Second choice; Start 11/29/18 at 07:00; Stop 11/30/18 at 06:59 Prochlorperazine Edisylate (Compazine) 5 mg PACU PRN PRN IV NAUSEA, MRX1; Start 11/29/18 at 07:00; Stop 11/30/18 at 06:59 Active Scripts Active Culturelle (Lactobacillus Rhamnosus Gg) 1 Each Cap.sprink 1 Cap PO BID 14 Days Oxycodone Hcl Immed.release (Oxycodone Hcl) 15 Mg Tablet 15 Mg PO QID Reported NICODERM CQ 21mg (Nicotine) 1 Each Patch.td24 1 Patch TD PRN DAILY PRN Prozac (Fluoxetine Hcl) 10 Mg Capsule 5 Mg PO DAILY Famotidine 40 Mg Tablet 40 Mg PO HS Olanzapine 5 Mg Tablet 5 Mg PO DAILY Lamictal (Lamotrigine) 100 Mg Tablet 1 Tab PO DAILY Loperamide (Loperamide Hcl) 2 Mg Tablet 4 Mg PO PRN QID PRN Vitals/I & O Vital Sign - Last 24 Hours 11/27/18 11/27/18 11/27/18 11/27/18 10:04 10:59 11:00 12:44 Temp 98.3 98.3 Pulse 83 Resp 18 18 18 18 B/P (MAP) 120/80 (93) Pulse Ox 96 O2 Delivery Room Air Room Air Room Air Room Air 11/27/18 11/27/18 11/27/18 11/27/18 12:44 13:14 14:09 15:00 Temp 98.2 98.2 Pulse 79 Resp 18 18 18 18 B/P (MAP) 97/64 (75) Pulse Ox 95 O2 Delivery Room Air Room Air Room Air Room Air 11/27/18 11/27/18 11/27/1811/27/19 16:06 16:41 16:42 16:43 Resp 18 18 18 18 O2 Delivery Room Air Room Air Room Air Room Air 11/27/18 11/27/18 11/27/18 11/27/18 17:54 19:00 19:06 21:08 Temp 98.3 98.3 Pulse 64 Resp 18 18 18 16 B/P (MAP) 109/68 (82) Pulse Ox 96 96 O2 Delivery Room Air Room Air Room Air Room Air 11/27/18 11/27/18 11/27/18 11/27/18 22:42 22:49 23:09 23:56 Temp 98.6 98.6 Pulse 89 Resp 15 14 18 13 B/P (MAP) 117/78 (91) Pulse Ox 96 96 96 96 O2 Delivery Room Air Room Air Room Air Room Air 11/28/18 11/28/18 11/28/18 11/28/18 00:02 01:08 02:42 03:13 Temp 98.5 98.5 Pulse 88 Resp 14 13 13 18 B/P (MAP) 125/85 (98) Pulse Ox 96 96 96 96 O2 Delivery Room Air Room Air Room Air Room Air 11/28/18 11/28/18 11/28/18 11/28/18 03:42 03:48 04:18 06:59 Resp 12 15 14 15 Pulse Ox 96 96 96 96 O2 Delivery Room Air Room Air Room Air Room Air Intake and Output 11/27/18 11/27/18 11/28/18 14:59 22:59 06:59 Intake Total 480 ml 120 ml Balance 480 ml 120 ml ANUPAMA QUINONES MD Nov 28, 2018 08:35
[2018-11-28] MEDS: OLANZapine 5 MG TABLET PO SCH (09:28)
[2018-11-28] MEDS: LACTOBACILLUS RHAMNOSUS GG 1 CAPSULE. PO SCH ×2 (09:28→20:28)
[2018-11-28] MEDS: ENOXAPARIN 40 MG/0.4 ML SYRINGE. SQ SCH (09:30)
--- NOTE | 2018-11-28 10:37 | PDOC ---
Infectious Disease Note Subjective: Subjective pt says feels better awaiting portacath for tpn no fevers or pain port cath site removal site no sob or cough no change in her bm ROS: ROS Negative otherwise. Vital Signs: Vital Signs Vital Signs Date Time Temp Pulse Resp B/P (MAP) Pulse Ox O2 Delivery O2 Flow Rate FiO2 11/28/18 07:00 98.2 74 14 107/58 (74) 96 Room Air 98.2 Physical Exam: PHYSICAL EXAM GENERAL: The patient is sitting upright in bed, alert, no apparent distress. HEENT: Pupils equally round, normal conjunctivae. Oropharynx pink and moist. NECK: Supple. LUNGS: Clear to auscultation. HEART: S1, S2. ABDOMEN: Soft, nontender with bowel sounds present. EXTREMITIES: No gross edema or cyanosis. SKIN: Warm to touch. No signs of rash. NEUROLOGIC: Alert and oriented x 3. LIJ [employer]Port removal site nontender, without redness or swelling. Medications: Inpatient Meds: Current Medications Medications (Trade) Dose Ordered Sig/Caroline Start Time Stop Time Status Last Admin Dose Admin Cefazolin Sodium (Ancef) 1 gm Q8HRS 11/26/18 14:00 11/28/18 06:19 1 GM Cefazolin Sodium 1 gm/Dextrose 50 ml @ 100 mls/hr Q8HRS 11/26/18 14:00 UNV Daptomycin 300 mg/ Sodium Chloride 50 ml @ 100 mls/hr Q24H 11/20/18 13:00 11/26/18 11:20 DC 11/25/18 12:31 100 MLS/HR Diphenhydramine HCl (Benadryl) 25 mg PRN Q6HRS PRN 11/20/18 09:45 Enoxaparin Sodium (Lovenox 40mg Syringe) 40 mg Q24H 11/20/18 10:00 Enoxaparin Sodium (Lovenox Per Pharmacy Prophylaxis Dosing) 1 each PRN DAILY PRN 11/20/18 09:45 Famotidine (Pepcid) 40 mg QHS 11/20/18 21:00 11/27/18 21:08 40 MG Fentanyl Citrate (Fentanyl 2ml Vial) 50 mcg PRN Q5MIN PRN 11/29/18 07:00 11/30/18 06:59 Fluoxetine HCl (PROzac) 5 mg DAILY 11/21/18 09:00 11/28/18 09:29 5 MG Hydromorphone HCl (Dilaudid) 0.5 mg PRN Q10MIN PRN 11/29/18 07:00 11/30/18 06:59 Ibuprofen (Motrin) 400 mg 1X ONCE 11/19/18 21:30 11/19/18 21:31 DC 11/19/18 21:56 400 MG Lactobacillus Rhamnosus (Culturelle) 1 cap BID 11/21/18 21:00 11/28/18 09:29 1 CAP Lamotrigine (LaMICtal) 100 mg HS 11/20/18 21:15 11/27/18 21:08 100 MG Lidocaine/ Epinephrine (LIDOCAINE 1%-EPI 1:100,000 Multi-Dose) 20 ml 1X ONCE 11/22/18 10:00 11/22/18 10:01 DC 11/22/18 11:00 4 ML Loperamide HCl (Imodium) 4 mg PRN QID PRN 11/20/18 09:45 11/28/18 09:39 4 MG Magnesium Sulfate 50 ml @ 25 mls/hr 1X ONCE 11/19/18 22:30 11/20/18 00:29 DC 11/19/18 23:00 25 MLS/HR Micafungin Sodium 100 mg/Dextrose 100 ml @ 100 mls/hr Q24H 11/20/18 11:30 11/24/18 11:31 DC 11/24/18 10:48 100 MLS/HR Midazolam HCl (Versed) 2 mg 1X ONCE 11/22/18 10:00 11/22/18 10:18 DC Morphine Sulfate (Morphine Sulfate) 1 mg PRN Q10MIN PRN 11/29/18 07:00 11/30/18 06:59 Nicotine (Nicoderm Cq 21mg) 1 patch PRN DAILY PRN 11/20/18 09:30 11/20/18 11:22 1 PATCH Olanzapine (ZyPREXA) 5 mg DAILY 11/21/18 09:00 11/28/18 09:29 5 MG Ondansetron HCl (Zofran) 4 mg PRN Q6HRS PRN 11/29/18 07:00 11/30/18 06:59 Oxycodone HCl (Roxicodone) 15 mg PRN Q4HRS PRN 11/20/18 09:45 Piperacillin Sod/ Tazobactam Sod (Zosyn Per Pharmacy) 1 each PRN DAILY PRN 11/20/18 09:30 11/20/18 11:10 DC Piperacillin Sod/ Tazobactam Sod 4.5 gm/Sodium Chloride 100 ml @ 200 mls/hr Q6HRS 11/20/18 10:00 11/20/18 11:10 DC 11/20/18 10:03 200 MLS/HR Prochlorperazine Edisylate (Compazine) 5 mg PACU PRN PRN 11/29/18 07:00 11/30/18 06:59 Propofol 60 ml @ As Directed STK-MED ONCE 11/22/18 10:19 11/22/18 10:20 DC Ringer's Solution 1,000 ml @ 30 mls/hr Q24H 11/29/18 07:00 11/29/18 18:59 Sodium Chloride 1,000 ml @ 1,000 mls/hr 1X ONCE 11/19/18 21:00 11/19/18 21:59 DC 11/19/18 22:36 1,000 MLS/HR Zolpidem Tartrate (Ambien) 5 mg HS 11/20/18 21:00 11/27/18 21:08 5 MG Labs: Micro RUN DATE: 11/23/18 PAGE 1 RUN TIME: 1710 [facility] [address] [place] [address] Pipo Clay M.D., Dance Entertainer PATIENT: DENNIS MEAD ACCT: [id number] LOC: [address] [place] [address] U: [id number] AGE/SX: 33/F ROOM: 565 RE11/19/[address]: MARILYN CARRENO MD : 1985 BED: 1 DIS: STATUS: ADM IN TLOC: SPEC #: [id number] SUJATA: 11/19/18 STATUS: COMP REQ #: [id number] RECD: 11/19/[address]: GYPSY ANTHONY DO SOURCE: BLOOD ENTR: 11/20/18 [facility] DR: MILLIE VILLAREAL MD [facility]: ORDERED: BLD CULT - LC Procedure Result BLOOD CULTURE LC Final Preliminary report Final report BLD CULT RESULT 1 Final Comment Coagulase negative Staphylococcus species. Performed at: - [facility], [place], [place] [id number] Economic Manager: SULEIMAN Goldsmith MD, Phone: [phone] Staphylococcus epidermidis Based on susceptibility to oxacillin this isolate would be susceptible to: *Penicillinase-stable penicillins, such as: Cloxacillin, Dicloxacillin, Nafcillin *Beta-lactam combination agents, such as: Amoxicillin-clavulanic acid, Ampicillin-sulbactam, Piperacillin-tazobactam *Oral cephems, such as: Cefaclor, Cefdinir, Cefpodoxime, Cefprozil, Cefuroxime, Cephalexin, Loracarbef *Parenteral cephems, such as: Cefazolin, Cefepime, Cefotaxime, Cefotetan, Ceftaroline, Ceftizoxime, Ceftriaxone, Cefuroxime *Carbapenems, such as: Doripenem, Ertapenem, Imipenem, Meropenem ANTIMICROBIAL SUSCEPTIBILITY Final Comment S = Susceptible; I = Intermediate; R = Resistant P = Positive; N = Negative MICS are expressed in micrograms per mL Antibiotic RSLT#1 RSLT#2 RSLT#3 RSLT#4 Ciprofloxacin R =4 Clindamycin S<=0.25 Erythromycin S<=0.25 Gentamicin S<=0.5 CONTINUED ON NEXT PAGE RUN DATE: 11/23/18 PAGE 2 RUN TIME: 1710 [facility] [address] [place] [address] Pipo Clay M.D., Dance Entertainer SPEC: [id number] PATIENT: DENNIS MAED [id number] (Continued) Procedure Result ANTIMICROBIAL SUSCEPTIBILITY Final (continued) Levofloxacin I =4 Linezolid S =1 Oxacillin S<=0.25 Penicillin R>=0.5 Quinupristin/Dalfopristin S<=0.25 Rifampin S<=0.5 Tetracycline S<=1 Trimethoprim/Sulfa S =40 Vancomycin S =2 Performed at: [facility] [address], [place], [place] [id number] Economic Manager: SULEIMAN Goldsmith MD, Phone: [phone] Objective: Assessment: 1. Gram-positive cocci bacteremia (4 of 4 bottles) from 11/19. coag neg staph ,MSSE 2. Possible infected at PowerPort. Port removed 11/22,cath tip cults pending 3. Fever.resolved 4. Leukocytosis.resolved 5. 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 6. Short bowel syndrome, on chronic TPN. 7. History of methicillin-resistant Staphylococcus aureus. 8. History of Clostridium difficile. Plan: Plan of Care cont Cefazolin Monitor for ab toxicities/side effects Repeat BC 11/21 negative Cath tip cult neg pain control per primary awaiting shan cath tomorrow d/w nursing staff VINOD HERNANDEZ MD Nov 28, 2018 10:37
[2018-11-28 11:00] VITALS: BP 109/73
[2018-11-28 12:44] LABS: BASO % 1 % (0-3); EOS # 0.3 x10^3/uL (0.0-0.7); EOS % 4 % (0-3); HEMATOCRIT 33.9 % (36.0-47.0); HEMOGLOBIN 11.5 g/dL (12.0-15.5); LYMPH # 2.2 x10^3/uL (1.0-4.8); LYMPH % 32 % (24-48); MEAN CORPUSCULAR HEMOGLOBIN 30 pg (25-35); MEAN CORPUSCULAR HGB CONC 34 g/dL (31-37); MEAN CORPUSCULAR VOLUME 89 fL (79-100); MONO # 0.6 x10^3/uL (0.0-1.1); MONO % 9 % (0-9); NEUT # 3.7 x10^3/uL (1.8-7.7); NEUT % 54 % (31-73); PLATELET COUNT 207 x10^3/uL (140-400); RED BLOOD COUNT 3.81 x10^6/uL (3.50-5.40); RED CELL DISTRIBUTION WIDTH 14.3 % (11.5-14.5); WHITE BLOOD COUNT 6.9 x10^3/uL (4.0-11.0)
[2018-11-28 13:08] LABS: ALBUMIN 3.4 g/dL (3.4-5.0); ALBUMIN/GLOBULIN RATIO 0.8 (1.0-1.7); CALCIUM 9.2 mg/dL (8.5-10.1); CREATININE 0.7 mg/dL (0.6-1.0); GFR 96.4; POTASSIUM 3.6 mmol/L (3.5-5.1); TOTAL BILIRUBIN 0.3 mg/dL (0.2-1.0); TOTAL PROTEIN 7.8 g/dL (6.4-8.2)
[2018-11-28 15:00] VITALS: BP 114/73
[2018-11-28 19:00] VITALS: BP 119/78
[2018-11-28] MEDS: lamoTRIgine 100 MG TABLET. PO SCH (20:28)
[2018-11-28] MEDS: FAMOTIDINE 20 MG TABLET. PO SCH (20:28)
[2018-11-28] MEDS: ZOLPIDEM 5 MG TABLET. PO SCH (20:29)
[2018-11-28 23:00] VITALS: BP 108/71
[2018-11-29] MEDS: HYDROmorphone 2 MG/ML VIAL IVP PRN ×6 (00:37→23:09)
[2018-11-29] MEDS: fentaNYL PF VIAL 100 MCG/2 ML VIAL IV PRN ×6 (01:32→20:38)
[2018-11-29 03:15] VITALS: BP 122/74
[2018-11-29] MEDS: ceFAZolin SODIUM IV Push 1 GM VIAL. IVP SCH (05:35)
[2018-11-29 07:00] VITALS: BP 129/79
[2018-11-29] MEDS ORDERED: fentaNYL PF VIAL 100 MCG/2 ML VIAL IV PRN ×2 (07:00)
[2018-11-29] MEDS ORDERED: ONDANSETRON PF 4 MG/2 ML VIAL. IV PRN (07:00)
[2018-11-29] MEDS ORDERED: MORPHINE SULFATE 2 MG/ML VIAL. IV PRN (07:00)
[2018-11-29] MEDS ORDERED: IV RINGERS,LACTATED 1000ML 1,000 ML IV SCH (07:00)
[2018-11-29] MEDS ORDERED: HYDROmorphone 2 MG/ML VIAL IV PRN (07:00)
--- NOTE | 2018-11-29 07:52 | PDOC ---
PROGRESS NOTES Chief Complaint Chief Complaint Sepsis Bacteremia, 06/17 GPC - MSSE s/p power-port removal 11/22 Short gut syndrome, malnutrition, mild, albumin 3.4 on admit history of uterine cancer, s/p surg, chemo and radiation, now with post effect HX MOLAR Bipolar disorder, Tobacco use disorder 29 MIN PT EXAM, CHART REVIEW, > 50% OF TIME SPENT WITH EXAM, CHART REVIEW, PT CARE COORDINATION History of Present Illness History of Present Illness Ms Hansen is a 33-year-old female with a history of small bowel syndrome, on chronic biweekly TPN infusions, Uterine cancer, status post radiation, tinnitus, bipolar disorder, panic disorder, depression, anxiety, history of MRSA and Clostridium difficile infection in 2009 who presented with complaints of fever and chills since 11/15/2018. She has had a left PowerPort in place for the past 3 years. Her blood cultures returned with Gram-positive cocci in clusters, 1 of 4 bottles. She has a previous history of multiple line infections. She denies redness, pain, swelling or discharge s urrounding the Port-A-Cath site. Had her port-a-cath removed 11/22/2018 and tip culture was positive for acinetobacter. She had clearance and therefore had a new power-port inserted on 11/29/2018. Eating well. NO fevers. She is very anxious to leave, states her teenager has had difficulties with truancy at school. No CP or SOB. I told her I will try to discharge her safely. She already has home infusions and home health in place. 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 HEENT: Pupils equally round, normal conjunctivae. Oropharynx pink and moist. NECK: Supple. LUNGS: Clear to auscultation. HEART: S1, S2. ABDOMEN: Soft, nontender with bowel sounds present. EXTREMITIES: No gross edema or cyanosis. SKIN: Warm to touch. No signs of rash. NEUROLOGIC: Alert and oriented x 3. LIJ PowerPort removal site nontender, without redness or swelling. General: Alert, Oriented X3, Cooperative, No acute distress Heart: Regular rate, Normal S1, Normal S2 Lungs: Clear Abdomen: Normal bowel sounds, Soft, No tenderness, No hepatosplenomegaly, Other (well healed incision) Extremities: No clubbing, No cyanosis, No edema Skin: No rashes, No breakdown Labs LABS Laboratory Tests Test 11/28/18 12:26 White Blood Count 6.9 x10^3/uL (4.0-11.0) Red Blood Count 3.81 x10^6/uL (3.50-5.40) Hemoglobin 11.5 g/dL (12.0-15.5) Hematocrit 33.9 % (36.0-47.0) Mean Corpuscular Volume 89 fL (79-100) Mean Corpuscular Hemoglobin 30 pg (25-35) Mean Corpuscular Hemoglobin Concent 34 g/dL (31-37) Red Cell Distribution Width 14.3 % (11.5-14.5) Platelet Count 207 x10^3/uL (140-400) Neutrophils (%) (Auto) 54 % (31-73) Lymphocytes (%) (Auto) 32 % (24-48) Monocytes (%) (Auto) 9 % (0-9) Eosinophils (%) (Auto) 4 % (0-3) Basophils (%) (Auto) 1 % (0-3) Neutrophils # (Auto) 3.7 x10^3/uL (1.8-7.7) Lymphocytes # (Auto) 2.2 x10^3/uL (1.0-4.8) Monocytes # (Auto) 0.6 x10^3/uL (0.0-1.1) Eosinophils # (Auto) 0.3 x10^3/uL (0.0-0.7) Basophils # (Auto) 0.0 x10^3/uL (0.0-0.2) Sodium Level 141 mmol/L (136-145) Potassium Level 3.6 mmol/L (3.5-5.1) Chloride Level 102 mmol/L (98-107) Carbon Dioxide Level 31 mmol/L (21-32) Anion Gap 8 (6-14) Blood Urea Nitrogen 10 mg/dL (7-20) Creatinine 0.7 mg/dL (0.6-1.0) Estimated GFR (Cockcroft-Gault) 96.4 BUN/Creatinine Ratio 14 (6-20) Glucose Level 111 mg/dL (70-99) Calcium Level 9.2 mg/dL (8.5-10.1) Total Bilirubin 0.3 mg/dL (0.2-1.0) Aspartate Amino Transf (AST/SGOT) 48 U/L (15-37) Alanine Aminotransferase (ALT/SGPT) 60 U/L (14-59) Alkaline Phosphatase 194 U/L (46-116) Total Protein 7.8 g/dL (6.4-8.2) Albumin 3.4 g/dL (3.4-5.0) Albumin/Globulin Ratio 0.8 (1.0-1.7) Assessment and Plan Assessmemt and Plan Problems Medical Problems: (1) Fever Status: Acute (2) Infection of venous access port Status: Acute (3) Sepsis Status: Acute Comment Review of Relevant I have reviewed the following items noni (where applicable) has been applied. Labs Laboratory Tests Test 11/28/18 12:26 White Blood Count 6.9 x10^3/uL (4.0-11.0) Red Blood Count 3.81 x10^6/uL (3.50-5.40) Hemoglobin 11.5 g/dL (12.0-15.5) Hematocrit 33.9 % (36.0-47.0) Mean Corpuscular Volume 89 fL (79-100) Mean Corpuscular Hemoglobin 30 pg (25-35) Mean Corpuscular Hemoglobin Concent 34 g/dL (31-37) Red Cell Distribution Width 14.3 % (11.5-14.5) Platelet Count 207 x10^3/uL (140-400) Neutrophils (%) (Auto) 54 % (31-73) Lymphocytes (%) (Auto) 32 % (24-48) Monocytes (%) (Auto) 9 % (0-9) Eosinophils (%) (Auto) 4 % (0-3) Basophils (%) (Auto) 1 % (0-3) Neutrophils # (Auto) 3.7 x10^3/uL (1.8-7.7) Lymphocytes # (Auto) 2.2 x10^3/uL (1.0-4.8) Monocytes # (Auto) 0.6 x10^3/uL (0.0-1.1) Eosinophils # (Auto) 0.3 x10^3/uL (0.0-0.7) Basophils # (Auto) 0.0 x10^3/uL (0.0-0.2) Sodium Level 141 mmol/L (136-145) Potassium Level 3.6 mmol/L (3.5-5.1) Chloride Level 102 mmol/L (98-107) Carbon Dioxide Level 31 mmol/L (21-32) Anion Gap 8 (6-14) Blood Urea Nitrogen 10 mg/dL (7-20) Creatinine 0.7 mg/dL (0.6-1.0) Estimated GFR (Cockcroft-Gault) 96.4 BUN/Creatinine Ratio 14 (6-20) Glucose Level 111 mg/dL (70-99) Calcium Level 9.2 mg/dL (8.5-10.1) Total Bilirubin 0.3 mg/dL (0.2-1.0) Aspartate Amino Transf (AST/SGOT) 48 U/L (15-37) Alanine Aminotransferase (ALT/SGPT) 60 U/L (14-59) Alkaline Phosphatase 194 U/L (46-116) Total Protein 7.8 g/dL (6.4-8.2) Albumin 3.4 g/dL (3.4-5.0) Albumin/Globulin Ratio 0.8 (1.0-1.7) Laboratory Tests Test 11/28/18 12:26 White Blood Count 6.9 x10^3/uL (4.0-11.0) Red Blood Count 3.81 x10^6/uL (3.50-5.40) Hemoglobin 11.5 g/dL (12.0-15.5) Hematocrit 33.9 % (36.0-47.0) Mean Corpuscular Volume 89 fL (79-100) Mean Corpuscular Hemoglobin 30 pg (25-35) Mean Corpuscular Hemoglobin Concent 34 g/dL (31-37) Red Cell Distribution Width 14.3 % (11.5-14.5) Platelet Count 207 x10^3/uL (140-400) Neutrophils (%) (Auto) 54 % (31-73) Lymphocytes (%) (Auto) 32 % (24-48) Monocytes (%) (Auto) 9 % (0-9) Eosinophils (%) (Auto) 4 % (0-3) Basophils (%) (Auto) 1 % (0-3) Neutrophils # (Auto) 3.7 x10^3/uL (1.8-7.7) Lymphocytes # (Auto) 2.2 x10^3/uL (1.0-4.8) Monocytes # (Auto) 0.6 x10^3/uL (0.0-1.1) Eosinophils # (Auto) 0.3 x10^3/uL (0.0-0.7) Basophils # (Auto) 0.0 x10^3/uL (0.0-0.2) Sodium Level 141 mmol/L (136-145) Potassium Level 3.6 mmol/L (3.5-5.1) Chloride Level 102 mmol/L (98-107) Carbon Dioxide Level 31 mmol/L (21-32) Anion Gap 8 (6-14) Blood Urea Nitrogen 10 mg/dL (7-20) Creatinine 0.7 mg/dL (0.6-1.0) Estimated GFR (Cockcroft-Gault) 96.4 BUN/Creatinine Ratio 14 (6-20) Glucose Level 111 mg/dL (70-99) Calcium Level 9.2 mg/dL (8.5-10.1) Total Bilirubin 0.3 mg/dL (0.2-1.0) Aspartate Amino Transf (AST/SGOT) 48 U/L (15-37) Alanine Aminotransferase (ALT/SGPT) 60 U/L (14-59) Alkaline Phosphatase 194 U/L (46-116) Total Protein 7.8 g/dL (6.4-8.2) Albumin 3.4 g/dL (3.4-5.0) Albumin/Globulin Ratio 0.8 (1.0-1.7) Microbiology 11/22/18 Aerobic Culture - Preliminary, Resulted 11/22/18 Aerobic Culture Result 1 (NATE) - Preliminary, Resulted 11/22/18 Aerobic Culture Result 2 (NATE) - Preliminary, Resulted 11/22/18 Gram Stain - Final, Resulted 11/22/18 Gram Stain Result 1 (NATE) - Final, Resulted 11/22/18 Gram Stain Result 2 (NATE) - Final, Resulted 11/21/18 Blood Culture - Final, Complete NO GROWTH AFTER 5 DAYS Medications Current Medications Sodium Chloride 1,000 ml @ 1,000 mls/hr 1X ONCE IV Last administered on 11/19/18at 21:56; Start 11/19/18 at 21:00; Stop 11/19/18 at 21:59; Status DC Piperacillin Sod/ Tazobactam Sod 4.5 gm/Sodium Chloride 100 ml @ 200 mls/hr 1X ONCE IV Last administered on 11/19/18at 22:03; Start 11/19/18 at 21:30; Stop 11/19/18 at 21:59; Status DC Sodium Chloride 1,000 ml @ 1,000 mls/hr 1X ONCE IV Last administered on 11/19/18at 22:36; Start 11/19/18 at 21:00; Stop 11/19/18 at 21:59; Status DC Ibuprofen (Motrin) 400 mg 1X ONCE PO Last administered on 11/19/18at 21:56; Start 11/19/18 at 21:30; Stop 11/19/18 at 21:31; Status DC Fentanyl Citrate (Fentanyl 2ml Vial) 50 mcg 1X ONCE IV Last administered on 11/19/18at 22:03; Start 11/19/18 at 22:00; Stop 11/19/18 at 22:01; Status DC Fentanyl Citrate (Fentanyl 2ml Vial) 100 mcg STK-MED ONCE .ROUTE ; Start 11/19/18 at 21:53; Stop 11/19/18 at 21:53; Status DC Magnesium Sulfate 50 ml @ 25 mls/hr 1X ONCE IV Last administered on 11/19/18at 23:00; Start 11/19/18 at 22:30; Stop 11/20/18 at 00:29; Status DC Fentanyl Citrate (Fentanyl 2ml Vial) 50 mcg 1X ONCE IV Last administered on 11/19/18at 23:00; Start 11/19/18 at 22:45; Stop 11/19/18 at 22:46; Status DC Ondansetron HCl (Zofran) 4 mg PRN Q8HRS PRN IV NAUSEA/VOMITING Last adm inistered on 11/19/18at 23:00; Start 11/19/18 at 22:45; Stop 11/20/18 at 22:44; Status DC Fentanyl Citrate (Fentanyl 2ml Vial) 75 mcg PRN Q2HR PRN IV MODERATE PAIN Last administered on 11/22/18 18:23; Start 11/19/18 at 22:45; Stop 11/22/18 at 20:48; Status DC Hydromorphone HCl (Dilaudid) 1 mg PRN Q4HRS PRN IVP SEVERE PAIN Last administered on 11/22/18 20:21; Start 11/20/18 at 09:15; Stop 11/22/18 at 20:48; Status DC Fluoxetine HCl (PROzac) 5 mg DAILY PEG Last administered on 11/28/18 09:29; Start 11/21/18 at 09:00 Lamotrigine (LaMICtal) 100 mg DAILY PO ; Start 11/21/18 at 09:00; Stop 11/20/18 at 21:05; Status DC Nicotine (Nicoderm Cq 21mg) 1 patch PRN DAILY PRN TD SMOKING CESSATION Last administered on 11/20/18at 11:22; Start 11/20/18 at 09:30 Olanzapine (ZyPREXA) 5 mg DAILY PO Last administered on 11/28/18 09:29; Start 11/21/18 at 09:00 Famotidine (Pepcid) 40 mg QHS PO Last administered on 11/28/18 20:36; Start 11/20/18 at 21:00 Loperamide HCl (Imodium) 4 mg PRN QID PRN PO DIARRHEA Last administered on 11/28/18at 20:36; Start 11/20/18 at 09:45 Piperacillin Sod/ Tazobactam Sod (Zosyn Per Pharmacy) 1 each PRN DAILY PRN MC SEE COMMENTS; Start 11/20/18 at 09:30; Stop 11/20/18 at 11:10; Status DC Piperacillin Sod/ Tazobactam Sod 4.5 gm/Sodium Chloride 100 ml @ 200 mls/hr Q6HRS IV Last administered on 11/20/18at 10:03; Start 11/20/18 at 10:00; Stop 11/20/18 at 11:10; Status DC Zolpidem Tartrate (Ambien) 5 mg HS PO Last administered on 11/28/18at 20:36; Start 11/20/18 at 21:00 Diphenhydramine HCl (Benadryl) 25 mg PRN Q6HRS PRN PO ITCHING; Start 11/20/18 at 09:45 Oxycodone HCl (Roxicodone) 15 mg PRN Q4HRS PRN PO PAIN; Start 11/20/18 at 09:45 Enoxaparin Sodium (Lovenox Per Pharmacy Prophylaxis Dosing) 1 each PRN DAILY PRN MC SEE COMMENTS; Start 11/20/18 at 09:45 Enoxaparin Sodium (Lovenox 40mg Syringe) 40 mg Q24H SQ ; Start 11/20/18 at 10:00 Daptomycin 300 mg/ Sodium Chloride 50 ml @ 100 mls/hr Q24H IV Last administered on 11/25/18at 12:31; Start 11/20/18 at 13:00; Stop 11/26/18 at 11:20; Status DC Micafungin Sodium 100 mg/Dextrose 100 ml @ 100 mls/hr Q24H IV Last administered on 11/24/18at 10:48; Start 11/20/18 at 11:30; Stop 11/24/18 at 11:31; Status DC Lamotrigine (LaMICtal) 100 mg STK-MED ONCE .ROUTE ; Start 11/20/18 at 21:03; Stop 11/20/18 at 21:03; Status DC Lamotrigine (LaMICtal) 100 mg HS PO Last administered on 11/28/18at 20:36; Start 11/20/18 at 21:15 Hydromorphone HCl (Dilaudid) 1 mg 1X ONCE IVP Last administered on 11/21/18at 09:40; Start 11/21/18 at 09:30; Stop 11/21/18 at 09:31; Status DC Lactobacillus Rhamnosus (Culturelle) 1 cap BID PO Last administered on 11/28/18at 20:36; Start 11/21/18 at 21:00 Midazolam HCl (Versed) 2 mg STK-MED ONCE .ROUTE ; Start 11/22/18 at 09:47; Stop 11/22/18 at 09:48; Status DC Fentanyl Citrate (Fentanyl 2ml Vial) 100 mcg STK-MED ONCE .ROUTE ; Start 11/22/18 at 09:47; Stop 11/22/18 at 09:48; Status DC Lidocaine/ Epinephrine (LIDOCAINE 1%-EPI 1:100,000 Multi-Dose) 20 ml STK-MED ONCE .ROUTE ; Start 11/22/18 at 09:48; Stop 11/22/18 at 09:48; Status DC Midazolam HCl (Versed) 2 mg 1X ONCE IV ; Start 11/22/18 at 10:00; Stop 11/22/18 at 10:18; Status DC Fentanyl Citrate (Fentanyl 2ml Vial) 100 mcg 1X ONCE IV ; Start 11/22/18 at 10:00; Stop 11/22/18 at 10:18; Status DC Lidocaine/ Epinephrine (LIDOCAINE 1%-EPI 1:100,000 Multi-Dose) 20 ml 1X ONCE INJ Last administered on 11/22/18at 11:00; Start 11/22/18 at 10:00; Stop 11/22/18 at 10:01; Status DC Ondansetron HCl (Zofran) 4 mg PRN Q6HRS PRN IV NAUSEA/VOMITING; Start 11/22/18 at 10:30; Stop 11/23/18 at 10:29; Status DC Fentanyl Citrate (Fentanyl 2ml Vial) 25 mcg PRN Q5MIN PRN IV MILD PAIN 1-3; Start 11/22/18 at 10:30; Stop 11/22/18 at 12:25; Status DC Fentanyl Citrate (Fentanyl 2ml Vial) 50 mcg PRN Q5MIN PRN IV MODERATE TO SEVERE PAIN Last administered on 11/22/18at 11:53; Start 11/22/18 at 10:30; Stop 11/22/18 at 12:25; Status DC Morphine Sulfate (Morphine Sulfate) 1 mg PRN Q10MIN PRN IV SEVERE PAIN 7-10; Start 11/22/18 at 10:30; Stop 11/23/18 at 10:29; Status DC Ringer's Solution 1,000 ml @ 30 mls/hr Q24H IV ; Start 11/22/18 at 10:17; Stop 11/22/18 at 12:25; Status DC Hydromorphone HCl (Dilaudid) 0.5 mg PRN Q10MIN PRN IV SEV PAIN, Second choice Last administered on 11/22/18at 16:18; Start 11/22/18 at 10:30; Stop 11/23/18 at 10:29; Status DC Prochlorperazine Edisylate (Compazine) 5 mg PACU PRN PRN IV NAUSEA, MRX1; Start 11/22/18 at 10:30; Stop 11/23/18 at 10:29; Status DC Propofol 60 ml @ As Directed STK-MED ONCE IV ; Start 11/22/18 at 10:19; Stop 11/22/18 at 10:20; Status DC Fentanyl Citrate (Fentanyl 2ml Vial) 100 mcg STK-MED ONCE .ROUTE ; Start 11/22/18 at 11:37; Stop 11/22/18 at 11:38; Status DC Fentanyl Citrate (Fentanyl 2ml Vial) 100 mcg PRN Q2HR PRN IV MODERATE PAIN Last administered on 11/29/18at 07:11; Start 11/22/18 at 20:45 Hydromorphone HCl (Dilaudid) 1.5 mg PRN Q4HRS PRN IVP SEVERE PAIN Last administered on 11/29/18at 05:36; Start 11/22/18 at 20:45 Cefazolin Sodium 1 gm/Dextrose 50 ml @ 100 mls/hr Q8HRS IV ; Start 11/26/18 at 14:00; Status UNV Cefazolin Sodium (Ancef) 1 gm Q8HRS IVP Last administered on 11/29/18at 05:36; Start 11/26/18 at 14:00 Ondansetron HCl (Zofran) 4 mg PRN Q6HRS PRN IV NAUSEA/VOMITING; Start 11/29/18 at 07:00; Stop 11/30/18 at 06:59 Fentanyl Citrate (Fentanyl 2ml Vial) 25 mcg PRN Q5MIN PRN IV MILD PAIN 1-3; Start 11/29/18 at 07:00; Stop 11/30/18 at 06:59 Fentanyl Citrate (Fentanyl 2ml Vial) 50 mcg PRN Q5MIN PRN IV MODERATE TO SEVERE PAIN; Start 11/29/18 at 07:00; Stop 11/30/18 at 06:59 Morphine Sulfate (Morphine Sulfate) 1 mg PRN Q10MIN PRN IV SEVERE PAIN 7-10; Start 11/29/18 at 07:00; Stop 11/30/18 at 06:59 Ringer's Solution 1,000 ml @ 30 mls/hr Q24H IV ; Start 11/29/18 at 07:00; Stop 11/29/18 at 18:59 Hydromorphone HCl (Dilaudid) 0.5 mg PRN Q10MIN PRN IV SEV PAIN, Second choice; Start 11/29/18 at 07:00; Stop 11/30/18 at 06:59 Prochlorperazine Edisylate (Compazine) 5 mg PACU PRN PRN IV NAUSEA, MRX1; Start 11/29/18 at 07:00; Stop 11/30/18 at 06:59 Active Scripts Active Culturelle (Lactobacillus Rhamnosus Gg) 1 Each Cap.sprink 1 Cap PO BID 14 Days Oxycodone Hcl Immed.release (Oxycodone Hcl) 15 Mg Tablet 15 Mg PO QID Reported NICODERM CQ 21mg (Nicotine) 1 Each Patch.td24 1 Patch TD PRN DAILY PRN Prozac (Fluoxetine Hcl) 10 Mg Capsule 5 Mg PO DAILY Famotidine 40 Mg Tablet 40 Mg PO HS Olanzapine 5 Mg Tablet 5 Mg PO DAILY Lamictal (Lamotrigine) 100 Mg Tablet 1 Tab PO DAILY Loperamide (Loperamide Hcl) 2 Mg Tablet 4 Mg PO PRN QID PRN Vitals/I & O Vital Sign - Last 24 Hours 11/28/18 11/28/18 11/28/18 11/28/18 08:00 11:00 15:00 19:00 Temp 98.3 97.8 98.2 98.3 97.8 98.2 Pulse 81 83 84 Resp 14 14 20 B/P (MAP) 109/73 (85) 114/73 (87) 119/78 (92) Pulse Ox 96 97 96 O2 Delivery Room Air Room Air Room Air Room Air 11/28/18 11/28/18 11/28/18 11/28/18 19:18 19:49 20:36 21:25 Resp 16 15 15 14 Pulse Ox 97 97 97 97 O2 Delivery Room Air Room Air Room Air Room Air 11/28/18 11/28/18 11/28/18 11/29/18 21:46 22:23 23:00 00:37 Temp 97.9 97.9 Pulse 75 Resp 15 14 18 15 B/P (MAP) 108/71 (83) Pulse Ox 97 97 97 97 O2 Delivery Room Air Room Air Room Air Room Air 9/16/11/29/18 11/29/18 11/29/18 01:11 01:32 02:10 03:15 Temp 98.1 98.1 Pulse 86 Resp 14 16 13 18 B/P (MAP) 122/74 (90) Pulse Ox 97 97 97 97 O2 Delivery Room Air Room Air Room Air Room Air 11/29/18 11/29/18 11/29/18 11/29/18 03:44 04:49 05:36 06:12 Resp 16 15 16 16 Pulse Ox 97 97 97 97 O2 Delivery Room Air Room Air Room Air Room Air 11/29/18 07:11 Resp 15 Pulse Ox 97 O2 Delivery Room Air LALITO IZAGUIRRE MD Nov 29, 2018 07:52
[2018-11-29 08:47] LABS: ALBUMIN 3.3 g/dL (3.4-5.0); ALBUMIN/GLOBULIN RATIO 0.8 (1.0-1.7); CALCIUM 9.5 mg/dL (8.5-10.1); CREATININE 0.7 mg/dL (0.6-1.0); GFR 96.4; MAGNESIUM 1.4 mg/dL (1.8-2.4); POTASSIUM 3.7 mmol/L (3.5-5.1); TOTAL BILIRUBIN 0.3 mg/dL (0.2-1.0); TOTAL PROTEIN 7.7 g/dL (6.4-8.2)
[2018-11-29] MEDS: LACTOBACILLUS RHAMNOSUS GG 1 CAPSULE. PO SCH ×2 (09:00→20:38)
[2018-11-29] MEDS: OLANZapine 5 MG TABLET PO SCH (09:00)
[2018-11-29] MEDS: ENOXAPARIN 40 MG/0.4 ML SYRINGE. SQ SCH (09:44)
[2018-11-29] MEDS ORDERED: MIDAZOLAM HCL/PF 2 MG/2 ML VIAL. ONE (09:54)
[2018-11-29] MEDS ORDERED: PROPOFOL 20 ML IV ONE (09:54)
[2018-11-29] MEDS ORDERED: PROPOFOL 50 ML IV ONE (09:54)
[2018-11-29] MEDS ORDERED: LIDOCAINE 1%/EPI 1:100,000 20 ML VIAL. ONE (10:05)
[2018-11-29] MEDS ORDERED: LIDOCAINE 1%/EPI 1:100,000 20 ML VIAL. SQ ONE (11:00)
[2018-11-29] MEDS ORDERED: HEPARIN PF 500 UNIT/5 ML DISP.SYRIN. IV ONE ×2 (11:07→11:15)
[2018-11-29 11:20] VITALS: BP 114/53
[2018-11-29] MEDS: PROCHLORPERAZINE 10 MG/2 ML VIAL. IV PRN ×2 (11:42→12:04)
[2018-11-29] MEDS ORDERED: HYDROmorphone 2 MG/ML VIAL IV ONE (12:00)
[2018-11-29] MEDS: oxyCODONE IR 5 MG TABLET PO PRN ×3 (12:07→22:22)
--- NOTE | 2018-11-29 12:54 | PDOC ---
Infectious Disease Note Subjective Subjective pt says feels better Has some pain around new port no fevers or pain port cath site removal site no sob or cough no change in her bm ROS ROS o/w neg Vital Sign Vital Signs Vital Signs Date Time Temp Pulse Resp B/P (MAP) Pulse Ox O2 Delivery O2 Flow Rate FiO2 11/29/18 12:18 97.8 76 16 137/82 93 Room Air 97.8 11/29/18 11:45 2.0 Physical Exam PHYSICAL EXAM GENERAL: The patient is sitting upright in bed, alert, no apparent distress. HEENT: Pupils equally round, normal conjunctivae. Oropharynx pink and moist. NECK: Supple. LUNGS: Clear to auscultation. HEART: S1, S2. ABDOMEN: Soft, nontender with bowel sounds present. EXTREMITIES: No gross edema or cyanosis. SKIN: Warm to touch. No signs of rash. NEUROLOGIC: Alert and oriented x 3. LIJ PowerPort removal site nontender, without redness or swelling.new site is clean Labs Lab Laboratory Tests Test 11/29/18 08:30 Sodium Level 142 mmol/L (136-145) Potassium Level 3.7 mmol/L (3.5-5.1) Chloride Level 103 mmol/L (98-107) Carbon Dioxide Level 29 mmol/L (21-32) Anion Gap 10 (6-14) Blood Urea Nitrogen 9 mg/dL (7-20) Creatinine 0.7 mg/dL (0.6-1.0) Estimated GFR (Cockcroft-Gault) 96.4 BUN/Creatinine Ratio 13 (6-20) Glucose Level 85 mg/dL (70-99) Calcium Level 9.5 mg/dL (8.5-10.1) Magnesium Level 1.4 mg/dL (1.8-2.4) Total Bilirubin 0.3 mg/dL (0.2-1.0) Aspartate Amino Transf (AST/SGOT) 47 U/L (15-37) Alanine Aminotransferase (ALT/SGPT) 56 U/L (14-59) Alkaline Phosphatase 172 U/L (46-116) Total Protein 7.7 g/dL (6.4-8.2) Albumin 3.3 g/dL (3.4-5.0) Albumin/Globulin Ratio 0.8 (1.0-1.7) Micro Microbiology 11/22/18 Aerobic Culture - Preliminary, Resulted 11/22/18 Aerobic Culture Result 1 (NATE) - Preliminary, Resulted 11/22/18 Aerobic Culture Result 2 (NATE) - Preliminary, Resulted 11/22/18 Gram Stain - Final, Resulted 11/22/18 Gram Stain Result 1 (NATE) - Final, Resulted 11/22/18 Gram Stain Result 2 (NATE) - Final, Resulted 11/21/18 Blood Culture - Final, Complete NO GROWTH AFTER 5 DAYS Objective Assessment 1. Gram-positive cocci bacteremia (4 of 4 bottles) from 11/19. coag neg staph ,MSSE 2. Possible infected at PowerPort. Port removed 11/22,cath tip cults Acinetobacter 3. Fever.resolved 4. Leukocytosis.resolved 5. 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 6. Short bowel syndrome, on chronic TPN. 7. History of methicillin-resistant Staphylococcus aureus. 8. History of Clostridium difficile. Plan Plan of Care D/ccont Cefazolin begin Meropenem (Unasyn shortage) f/u sensitivities anticipate at least a week of therapy Monitor for ab toxicities/side effects Repeat BC 11/21 negative pain control per primary d/w nursing staff D/w CLAUDIA Robbins MD Nov 29, 2018 12:54
[2018-11-29] MEDS: MEROPENEM 1 GM in IV NORMAL SALINE 100ML 100 ML IV SCH ×2 (14:23→22:21)
[2018-11-29] MEDS ORDERED: MAGNESIUM SULFATE 4GM 100 ML IV ONE (14:45)
[2018-11-29 15:00] VITALS: BP 120/72
--- NOTE | 2018-11-29 15:23 | RAD ---
Procedure: Ultrasound and fluoroscopically guided placement of right internal jugular power port.. 11/29/2018 1:18 PM Clinical Indication: shan cath insertion, needs tPN at home, use other side as access Sedation: Provided by anesthesia dept Fluoroscopy time: 2.5 minutes Dose area product: 2 Gycm2 Consent: The procedure was explained in its entirety to the patient or the patients designated corporate representative by a member of the treatment team, including a discussion of the risks, benefits and commonly accepted alternatives to the procedure, as well as the expected consequences of no therapy whatsoever. Discussion of the risks included, but was not limited to, those that are most frequent and those that are rare but possibly severe or life-threatening, as well as the possibility of unforeseen complications. Technique and Findings: All elements of maximal sterile barrier technique including the use of a cap, mask, sterile gown, sterile gloves, large sterile sheet, appropriate hand hygiene, and 2% chlorhexidine for cutaneous antisepsis (or acceptable alternative antiseptic per current guidelines) were followed for this procedure. Following informed consent, and a timeout procedure, the patient was prepped and draped in the usual sterile fashion. Ultrasound interrogation of the right neck revealed patency and compressibility of the right internal jugular vein. A 21-gauge micropuncture was then used to gain access to this vein under ultrasound guidance. A hard copy ultrasound image was recorded. The needle was exchanged over a wire for a sheath. A 1 inch incision was made several centimeters inferior to the venotomy site. A catheter was tunneled from this site dermatotomy site in the neck. Catheter was advanced through peel-away sheath such that its tip was in the proximal right atrium with the patient supine. The catheter was trimmed to length and connected to the port reservoir. The port was found to flush and aspirate normally. Port was packed with heparin. The wound was closed in layers using 4-0 Vicryl suture. Sterile dressings were applied. Impression: Successful ultrasound and fluoroscopically guided placement of a right internal jugular PowerPort
--- NOTE | 2018-11-29 18:30 | NUR ---
Pt. had Right port placed today. This evening while IV magnesium sulfate was running through a peripheral IV, the IV went bad. Pt. asked if this nurse could access port and continue the infusion through this site rather than initiating another peripheral IV. Pt. has fragile veins and has had multiple IV sticks since admission. This nurse paged the MD. Dr. Armstrong returned page and stated it was ok to access and use the Right chest port. Will continue to monitor.
[2018-11-29 19:00] VITALS: BP 127/89
[2018-11-29] MEDS: lamoTRIgine 100 MG TABLET. PO SCH (20:38)
[2018-11-29] MEDS: FAMOTIDINE 20 MG TABLET. PO SCH (20:38)
[2018-11-29] MEDS: ZOLPIDEM 5 MG TABLET. PO SCH (20:38)
[2018-11-29 23:00] VITALS: BP 122/76
[2018-11-30] MEDS: fentaNYL PF VIAL 100 MCG/2 ML VIAL IV PRN ×4 (00:18→15:15)
[2018-11-30 03:00] VITALS: BP 121/73
[2018-11-30] MEDS: HYDROmorphone 2 MG/ML VIAL IVP PRN ×3 (03:08→13:11)
[2018-11-30] MEDS: MEROPENEM 1 GM in IV NORMAL SALINE 100ML 100 ML IV SCH ×2 (05:11→15:16)
[2018-11-30] MEDS: oxyCODONE IR 5 MG TABLET PO PRN (06:04)
[2018-11-30 07:00] VITALS: BP 145/79
[2018-11-30] MEDS: LACTOBACILLUS RHAMNOSUS GG 1 CAPSULE. PO SCH (08:08)
[2018-11-30] MEDS: OLANZapine 5 MG TABLET PO SCH (08:09)
--- NOTE | 2018-11-30 08:21 | PDOC ---
PROGRESS NOTES Chief Complaint Chief Complaint Sepsis Bacteremia, / GPC - MSSE s/p power-port removal 11/22 Short gut syndrome, malnutrition, mild, albumin 3.4 on admit history of uterine cancer, s/p surg, chemo and radiation, now with post effect HX MOLAR Bipolar disorder, Tobacco use disorder Port a cath infection - Acinetobacter radioresistens Amikacin S<=4 Ampicillin/Sulbactam S<=4/2 Cefepime S =8 Cefotaxime S =8 Ceftazidime R> 16 Ceftriaxone S =4 Ciprofloxacin I =2 Gentamicin S =2 Levofloxacin R> 4 Meropenem S<=1 Ticarcillin/Clavulanate S<=8 Tobramycin S<=1 Trimethoprim/Sulfa R> 29 MIN PT EXAM, CHART REVIEW, > 50% OF TIME SPENT WITH EXAM, CHART REVIEW, PT CARE COORDINATION History of Present Illness History of Present Illness Ms Hansen is a 33-year-old female with a history of small bowel sy ndrome, on chronic biweekly TPN infusions, Uterine cancer, status post radiation, tinnitus, bipolar disorder, panic disorder, depression, anxiety, history of MRSA and Clostridium difficile infection in 2009 who presented with complaints of fever and chills since 11/15/2018. She has had a left PowerPort in place for the past 3 years. Her blood cultures returned with Gram-positive cocci in clusters, 1 of 4 bottles. She has a previous history of multiple line infections. She denies redness, pain, swelling or discharge surrounding the Port-A-Cath site. Had her port-a-cath removed 11/22/2018 and tip culture was positive for acinetobacter. She had clearance and therefore had a new power-port inserted on 11/29/2018. Eating well. NO fevers. She is very anxious to leave, states her teenager has had difficulties with truancy at school. No CP or SOB. I told her I will try to discharge her safely. She already has home infusions and home health in place. 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 HEENT: Pupils equally round, normal conjunctivae. Oropharynx pink and moist. NECK: Supple. LUNGS: Clear to auscultation. HEART: S1, S2. ABDOMEN: Soft, nontender with bowel sounds present. EXTREMITIES: No gross edema or cyanosis. SKIN: Warm to touch. No signs of rash. NEUROLOGIC: Alert and oriented x 3. LIJ PowerPort removal site nontender, without redness or swelling.new site is clean General: Alert, Oriented X3, Cooperative, No acute distress Heart: Regular rate, Normal S1, Normal S2 Lungs: Clear Abdomen: Normal bowel sounds, Soft, No tenderness, No hepatosplenomegaly, Other (well healed incision) Extremities: No clubbing, No cyanosis, No edema Skin: No rashes, No breakdown Labs LABS Laboratory Tests Test 11/29/18 08:30 Sodium Level 142 mmol/L (136-145) Potassium Level 3.7 mmol/L (3.5-5.1) Chloride Level 103 mmol/L (98-107) Carbon Dioxide Level 29 mmol/L (21-32) Anion Gap 10 (6-14) Blood Urea Nitrogen 9 mg/dL (7-20) Creatinine 0.7 mg/dL (0.6-1.0) Estimated GFR (Cockcroft-Gault) 96.4 BUN/Creatinine Ratio 13 (6-20) Glucose Level 85 mg/dL (70-99) Calcium Level 9.5 mg/dL (8.5-10.1) Magnesium Level 1.4 mg/dL (1.8-2.4) Total Bilirubin 0.3 mg/dL (0.2-1.0) Aspartate Amino Transf (AST/SGOT) 47 U/L (15-37) Alanine Aminotransferase (ALT/SGPT) 56 U/L (14-59) Alkaline Phosphatase 172 U/L (46-116) Total Protein 7.7 g/dL (6.4-8.2) Albumin 3.3 g/dL (3.4-5.0) Albumin/Globulin Ratio 0.8 (1.0-1.7) Assessment and Plan Assessmemt and Plan Problems Medical Problems: (1) Fever Status: Acute (2) Infection of venous access port Status: Acute (3) Sepsis Status: Acute Comment Review of Relevant I have reviewed the following items noni (where applicable) has been applied. Labs Laboratory Tests Test 11/28/18 12:26 11/29/18 08:30 White Blood Count 6.9 x10^3/uL (4.0-11.0) Red Blood Count 3.81 x10^6/uL (3.50-5.40) Hemoglobin 11.5 g/dL (12.0-15.5) Hematocrit 33.9 % (36.0-47.0) Mean Corpuscular Volume 89 fL (79-100) Mean Corpuscular Hemoglobin 30 pg (25-35) Mean Corpuscular Hemoglobin Concent 34 g/dL (31-37) Red Cell Distribution Width 14.3 % (11.5-14.5) Platelet Count 207 x10^3/uL (140-400) Neutrophils (%) (Auto) 54 % (31-73) Lymphocytes (%) (Auto) 32 % (24-48) Monocytes (%) (Auto) 9 % (0-9) Eosinophils (%) (Auto) 4 % (0-3) Basophils (%) (Auto) 1 % (0-3) Neutrophils # (Auto) 3.7 x10^3/uL (1.8-7.7) Lymphocytes # (Auto) 2.2 x10^3/uL (1.0-4.8) Monocytes # (Auto) 0.6 x10^3/uL (0.0-1.1) Eosinophils # (Auto) 0.3 x10^3/uL (0.0-0.7) Basophils # (Auto) 0.0 x10^3/uL (0.0-0.2) Sodium Level 141 mmol/L (136-145) 142 mmol/L (136-145) Potassium Level 3.6 mmol/L (3.5-5.1) 3.7 mmol/L (3.5-5.1) Chloride Level 102 mmol/L (98-107) 103 mmol/L (98-107) Carbon Dioxide Level 31 mmol/L (21-32) 29 mmol/L (21-32) Anion Gap 8 (6-14) 10 (6-14) Blood Urea Nitrogen 10 mg/dL (7-20) 9 mg/dL (7-20) Creatinine 0.7 mg/dL (0.6-1.0) 0.7 mg/dL (0.6-1.0) Estimated GFR (Cockcroft-Gault) 96.4 96.4 BUN/Creatinine Ratio 14 (6-20) 13 (6-20) Glucose Level 111 mg/dL (70-99) 85 mg/dL (70-99) Calcium Level 9.2 mg/dL (8.5-10.1) 9.5 mg/dL (8.5-10.1) Total Bilirubin 0.3 mg/dL (0.2-1.0) 0.3 mg/dL (0.2-1.0) Aspartate Amino Transf (AST/SGOT) 48 U/L (15-37) 47 U/L (15-37) Alanine Aminotransferase (ALT/SGPT) 60 U/L (14-59) 56 U/L (14-59) Alkaline Phosphatase 194 U/L (46-116) 172 U/L (46-116) Total Protein 7.8 g/dL (6.4-8.2) 7.7 g/dL (6.4-8.2) Albumin 3.4 g/dL (3.4-5.0) 3.3 g/dL (3.4-5.0) Albumin/Globulin Ratio 0.8 (1.0-1.7) 0.8 (1.0-1.7) Magnesium Level 1.4 mg/dL (1.8-2.4) Laboratory Tests Test 11/29/18 08:30 Sodium Level 142 mmol/L (136-145) Potassium Level 3.7 mmol/L (3.5-5.1) Chloride Level 103 mmol/L (98-107) Carbon Dioxide Level 29 mmol/L (21-32) Anion Gap 10 (6-14) Blood Urea Nitrogen 9 mg/dL (7-20) Creatinine 0.7 mg/dL (0.6-1.0) Estimated GFR (Cockcroft-Gault) 96.4 BUN/Creatinine Ratio 13 (6-20) Glucose Level 85 mg/dL (70-99) Calcium Level 9.5 mg/dL (8.5-10.1) Magnesium Level 1.4 mg/dL (1.8-2.4) Total Bilirubin 0.3 mg/dL (0.2-1.0) Aspartate Amino Transf (AST/SGOT) 47 U/L (15-37) Alanine Aminotransferase (ALT/SGPT) 56 U/L (14-59) Alkaline Phosphatase 172 U/L (46-116) Total Protein 7.7 g/dL (6.4-8.2) Albumin 3.3 g/dL (3.4-5.0) Albumin/Globulin Ratio 0.8 (1.0-1.7) Microbiology 11/22/18 Aerobic Culture - Final, Complete 11/22/18 Aerobic Culture Result 1 (NATE) - Final, Complete 11/22/18 Aerobic Culture Result 2 (NATE) - Final, Complete 11/22/18 Antimicrobic Susceptibility - Final, Complete 11/22/18 Gram Stain - Final, Complete 11/22/18 Gram Stain Result 1 (NATE) - Final, Complete 11/22/18 Gram Stain Result 2 (NATE) - Final, Complete 11/21/18 Blood Culture - Final, Complete NO GROWTH AFTER 5 DAYS Medications Current Medications Sodium Chloride 1,000 ml @ 1,000 mls/hr 1X ONCE IV Last administered on 11/19/18 21:56; Start 11/19/18 at 21:00; Stop 11/19/18 at 21:59; Status DC Piperacillin Sod/ Tazobactam Sod 4.5 gm/Sodium Chloride 100 ml @ 200 mls/hr 1X ONCE IV Last administered on 11/19/18at 22:03; Start 11/19/18 at 21:30; Stop 11/19/18 at 21:59; Status DC Sodium Chloride 1,000 ml @ 1,000 mls/hr 1X ONCE IV Last administered on 11/19/18at 22:36; Start 11/19/18 at 21:00; Stop 11/19/18 at 21:59; Status DC Ibuprofen (Motrin) 400 mg 1X ONCE PO Last administered on 11/19/18at 21:56; Start 11/19/18 at 21:30; Stop 11/19/18 at 21:31; Status DC Fentanyl Citrate (Fentanyl 2ml Vial) 50 mcg 1X ONCE IV Last administered on 11/19/18at 22:03; Start 11/19/18 at 22:00; Stop 11/19/18 at 22:01; Status DC Fentanyl Citrate (Fentanyl 2ml Vial) 100 mcg STK-MED ONCE .ROUTE ; Start 11/19/18 at 21:53; Stop 11/19/18 at 21:53; Status DC Magnesium Sulfate 50 ml @ 25 mls/hr 1X ONCE IV Last administered on 11/19/18at 23:00; Start 11/19/18 at 22:30; Stop 11/20/18 at 00:29; Status DC Fentanyl Citrate (Fentanyl 2ml Vial) 50 mcg 1X ONCE IV Last administered on 11/19/18at 23:00; Start 11/19/18 at 22:45; Stop 11/19/18 at 22:46; Status DC Ondansetron HCl (Zofran) 4 mg PRN Q8HRS PRN IV NAUSEA/VOMITING Last administered on 11/19/18at 23:00; Start 11/19/18 at 22:45; Stop 11/20/18 at 22:44; Status DC Fentanyl Citrate (Fentanyl 2ml Vial) 75 mcg PRN Q2HR PRN IV MODERATE PAIN Last administered on 11/22/18at 18:23; Start 11/19/18 at 22:45; Stop 11/22/18 at 20:48; Status DC Hydromorphone HCl (Dilaudid) 1 mg PRN Q4HRS PRN IVP SEVERE PAIN Last administered on 11/22/18at 20:21; Start 11/20/18 at 09:15; Stop 11/22/18 at 20:48; Status DC Fluoxetine HCl (PROzac) 5 mg DAILY PEG Last administered on 11/30/18at 08:09; Start 11/21/18 at 09:00 Lamotrigine (LaMICtal) 100 mg DAILY PO ; Start 11/21/18 at 09:00; Stop 11/20/18 at 21:05; Status DC Nicotine (Nicoderm Cq 21mg) 1 patch PRN DAILY PRN TD SMOKING CESSATION Last administered on 11/20/18at 11:22; Start 11/20/18 at 09:30 Olanzapine (ZyPREXA) 5 mg DAILY PO Last administered on 11/30/18at 08:09; Start 11/21/18 at 09:00 Famotidine (Pepcid) 40 mg QHS PO Last administered on 9/16/19at 20:39; Start 11/20/18 at 21:00 Loperamide HCl (Imodium) 4 mg PRN QID PRN PO DIARRHEA Last administered on 11/28/18at 20:36; Start 11/20/18 at 09:45 Piperacillin Sod/ Tazobactam Sod (Zosyn Per Pharmacy) 1 each PRN DAILY PRN MC SEE COMMENTS; Start 11/20/18 at 09:30; Stop 11/20/18 at 11:10; Status DC Piperacillin Sod/ Tazobactam Sod 4.5 gm/Sodium Chloride 100 ml @ 200 mls/hr Q6HRS IV Last administered on 11/20/18at 10:03; Start 11/20/18 at 10:00; Stop 11/20/18 at 11:10; Status DC Zolpidem Tartrate (Ambien) 5 mg HS PO Last administered on 11/29/18at 20:39; Start 11/20/18 at 21:00 Diphenhydramine HCl (Benadryl) 25 mg PRN Q6HRS PRN PO ITCHING; Start 11/20/18 at 09:45 Oxycodone HCl (Roxicodone) 15 mg PRN Q4HRS PRN PO PAIN Last administered on 11/30/18at 06:04; Start 11/20/18 at 09:45 Enoxaparin Sodium (Lovenox Per Pharmacy Prophylaxis Dosing) 1 each PRN DAILY PRN MC SEE COMMENTS; Start 11/20/18 at 09:45 Enoxaparin Sodium (Lovenox 40mg Syringe) 40 mg Q24H SQ ; Start 11/20/18 at 10:00 Daptomycin 300 mg/ Sodium Chloride 50 ml @ 100 mls/hr Q24H IV Last administered on 11/25/18at 12:31; Start 11/20/18 at 13:00; Stop 11/26/18 at 11:20; Status DC Micafungin Sodium 100 mg/Dextrose 100 ml @ 100 mls/hr Q24H IV Last administered on 11/24/18at 10:48; Start 11/20/18 at 11:30; Stop 11/24/18 at 11:31; Status DC Lamotrigine (LaMICtal) 100 mg STK-MED ONCE .ROUTE ; Start 11/20/18 at 21:03; Stop 11/20/18 at 21:03; Status DC Lamotrigine (LaMICtal) 100 mg HS PO Last administered on 11/29/18at 20:39; Start 11/20/18 at 21:15 Hydromorphone HCl (Dilaudid) 1 mg 1X ONCE IVP Last administered on 11/21/18at 09:40; Start 11/21/18 at 09:30; Stop 11/21/18 at 09:31; Status DC Lactobacillus Rhamnosus (Culturelle) 1 cap BID PO Last administered on 11/30/18at 08:09; Start 11/21/18 at 21:00 Midazolam HCl (Versed) 2 mg STK-MED ONCE .ROUTE ; Start 11/22/18 at 09:47; Stop 11/22/18 at 09:48; Status DC Fentanyl Citrate (Fentanyl 2ml Vial) 100 mcg STK-MED ONCE .ROUTE ; Start 11/22/18 at 09:47; Stop 11/22/18 at 09:48; Status DC Lidocaine/ Epinephrine (LIDOCAINE 1%-EPI 1:100,000 Multi-Dose) 20 ml STK-MED ONCE .ROUTE ; Start 11/22/18 at 09:48; Stop 11/22/18 at 09:48; Status DC Midazolam HCl (Versed) 2 mg 1X ONCE IV ; Start 11/22/18 at 10:00; Stop 11/22/18 at 10:18; Status DC Fentanyl Citrate (Fentanyl 2ml Vial) 100 mcg 1X ONCE IV ; Start 11/22/18 at 10:00; Stop 11/22/18 at 10:18; Status DC Lidocaine/ Epinephrine (LIDOCAINE 1%-EPI 1:100,000 Multi-Dose) 20 ml 1X ONCE INJ Last administered on 11/22/18at 11:00; Start 11/22/18 at 10:00; Stop 11/22/18 at 10:01; Status DC Ondansetron HCl (Zofran) 4 mg PRN Q6HRS PRN IV NAUSEA/VOMITING; Start 11/22/18 at 10:30; Stop 11/23/18 at 10:29; Status DC Fentanyl Citrate (Fentanyl 2ml Vial) 25 mcg PRN Q5MIN PRN IV MILD PAIN 1-3; Start 11/22/18 at 10:30; Stop 11/22/18 at 12:25; Status DC Fentanyl Citrate (Fentanyl 2ml Vial) 50 mcg PRN Q5MIN PRN IV MODERATE TO SEVERE PAIN Last administered on 11/22/18at 11:53; Start 11/22/18 at 10:30; Stop 11/22/18 at 12:25; Status DC Morphine Sulfate (Morphine Sulfate) 1 mg PRN Q10MIN PRN IV SEVERE PAIN 7-10; Start 11/22/18 at 10:30; Stop 11/23/18 at 10:29; Status DC Ringer's Solution 1,000 ml @ 30 mls/hr Q24H IV ; Start 11/22/18 at 10:17; Stop 11/22/18 at 12:25; Status DC Hydromorphone HCl (Dilaudid) 0.5 mg PRN Q10MIN PRN IV SEV PAIN, Second choice Last administered on 11/22/18at 16:18; Start 11/22/18 at 10:30; Stop 11/23/18 at 10:29; Status DC Prochlorperazine Edisylate (Compazine) 5 mg PACU PRN PRN IV NAUSEA, MRX1; Start 11/22/18 at 10:30; Stop 11/23/18 at 10:29; Status DC Propofol 60 ml @ As Directed STK-MED ONCE IV ; Start 11/22/18 at 10:19; Stop 11/22/18 at 10:20; Status DC Fentanyl Citrate (Fentanyl 2ml Vial) 100 mcg STK-MED ONCE .ROUTE ; Start 11/22/18 at 11:37; Stop 11/22/18 at 11:38; Status DC Fentanyl Citrate (Fentanyl 2ml Vial) 100 mcg PRN Q2HR PRN IV MODERATE PAIN Last administered on 11/30/18at 05:12; Start 11/22/18 at 20:45 Hydromorphone HCl (Dilaudid) 1.5 mg PRN Q4HRS PRN IVP SEVERE PAIN Last administered on 11/30/18at 08:09; Start 11/22/18 at 20:45 Cefazolin Sodium 1 gm/Dextrose 50 ml @ 100 mls/hr Q8HRS IV ; Start 11/26/18 at 14:00; Status UNV Cefazolin Sodium (Ancef) 1 gm Q8HRS IVP Last administered on 11/29/18at 05:36; Start 11/26/18 at 14:00; Stop 11/29/18 at 12:54; Status DC Ondansetron HCl (Zofran) 4 mg PRN Q6HRS PRN IV NAUSEA/VOMITING; Start 11/29/18 at 07:00; Stop 11/30/18 at 06:59; Status DC Fentanyl Citrate (Fentanyl 2ml Vial) 25 mcg PRN Q5MIN PRN IV MILD PAIN 1-3; Start 11/29/18 at 07:00; Stop 11/29/18 at 07:51; Status DC Fentanyl Citrate (Fentanyl 2ml Vial) 50 mcg PRN Q5MIN PRN IV MODERATE TO SEVERE PAIN; Start 11/29/18 at 07:00; Stop 11/29/18 at 07:51; Status DC Morphine Sulfate (Morphine Sulfate) 1 mg PRN Q10MIN PRN IV SEVERE PAIN 7-10; Start 11/29/18 at 07:00; Stop 11/29/18 at 07:51; Status DC Ringer's Solution 1,000 ml @ 30 mls/hr Q24H IV Last administered on 11/29/18at 12:04; Start 11/29/18 at 07:00; Stop 11/29/18 at 18:59; Status DC Hydromorphone HCl (Dilaudid) 0.5 mg PRN Q10MIN PRN IV SEV PAIN, Second choice; Start 11/29/18 at 07:00; Stop 11/29/18 at 07:51; Status DC Prochlorperazine Edisylate (Compazine) 5 mg PACU PRN PRN IV NAUSEA, MRX1 Last administered on 11/29/18at 12:04; Start 11/29/18 at 07:00; Stop 11/30/18 at 06:59; Status DC Lidocaine/ Epinephrine (LIDOCAINE 1%-EPI 1:100,000 Multi-Dose) 20 ml STK-MED ONCE .ROUTE ; Start 11/29/18 at 10:05; Stop 11/29/18 at 10:05; Status DC Lidocaine/ Epinephrine (LIDOCAINE 1%-EPI 1:100,000 Multi-Dose) 20 ml 1X ONCE SQ Last administered on 11/29/18at 11:03; Start 11/29/18 at 11:00; Stop 11/29/18 at 11:01; Status DC Heparin Sodium (Porcine) (Hep Lock Adult) 500 unit STK-MED ONCE IV ; Start 11/29/18 at 11:07; Stop 11/29/18 at 11:07; Status DC Heparin Sodium (Porcine) (Hep Lock Adult) 500 unit 1X ONCE IV Last administered on 11/29/18at 11:19; Start 11/29/18 at 11:15; Stop 11/29/18 at 11:1 6; Status DC Hydromorphone HCl (Dilaudid) 2 mg 1X ONCE IV Last administered on 11/29/18at 12:09; Start 11/29/18 at 12:00; Stop 11/29/18 at 12:03; Status DC Meropenem 1 gm/ Sodium Chloride 100 ml @ 200 mls/hr Q8HRS IV Last administered on 11/30/18at 05:12; Start 11/29/18 at 14:00 Magnesium Sulfate 100 ml @ 25 mls/hr 1X ONCE IV Last administered on 11/29/18at 17:02; Start 11/29/18 at 14:45; Stop 11/29/18 at 18:44; Status DC Active Scripts Active Culturelle (Lactobacillus Rhamnosus Gg) 1 Each Cap.sprink 1 Cap PO BID 14 Days Oxycodone Hcl Immed.release (Oxycodone Hcl) 15 Mg Tablet 15 Mg PO QID Reported NICODERM CQ 21mg (Nicotine) 1 Each Patch.td24 1 Patch TD PRN DAILY PRN Prozac (Fluoxetine Hcl) 10 Mg Capsule 5 Mg PO DAILY Famotidine 40 Mg Tablet 40 Mg PO HS Olanzapine 5 Mg Tablet 5 Mg PO DAILY Lamictal (Lamotrigine) 100 Mg Tablet 1 Tab PO DAILY Loperamide (Loperamide Hcl) 2 Mg Tablet 4 Mg PO PRN QID PRN Vitals/I & O Vital Sign - Last 24 Hours 11/29/18 11/29/18 11/29/18 11/29/18 09:41 09:43 11:20 11:30 Temp 97.4 97.4 Pulse 75 76 Resp 16 20 B/P (MAP) 141/76 Pulse Ox 100 93 O2 Delivery Room Air Room Air Nasal Cannula Room Air O2 Flow Rate 2.0 11/29/18 11/29/18 11/29/18 11/29/18 11:43 11:45 11:58 12:09 Pulse 96 91 Resp 20 20 20 20 B/P (MAP) 122/69 145/77 Pulse Ox 96 97 99 99 O2 Delivery Room Air Room Air Room Air O2 Flow Rate 2.0 11/29/18 11/29/18 11/29/18 11/29/18 12:09 12:18 14:19 14:21 Temp 97.8 97.8 Pulse 76 Resp 20 16 B/P (MAP) 137/82 Pulse Ox 93 O2 Delivery Room Air Room Air Room Air 11/29/18 11/29/18 11/29/18 11/29/18 15:00 17:02 17:02 17:12 Temp 97.8 97.8 Pulse 80 Resp 18 B/P (MAP) 120/72 (88) Pulse Ox 98 O2 Delivery Room Air Room Air Room Air Room Air 11/29/18 11/29/18 11/29/18 11/29/18 18:07 18:07 19:00 19:10 Temp 97.8 97.8 Pulse 82 Resp 16 B/P (MAP) 127/89 (102) Pulse Ox 97 O2 Delivery Room Air Room Air Room Air Room Air 11/29/18 11/29/18 11/29/18 11/29/18 20:00 20:33 20:39 21:41 Resp 18 18 18 Pulse Ox 98 98 98 O2 Delivery Room Air Room Air Room Air Room Air O2 Flow Rate 2.0 11/29/18 11/29/18 11/29/18 11/30/18 22:24 23:00 23:09 00:14 Temp 98.0 98.0 Pulse 83 Resp 18 17 18 18 B/P (MAP) 122/76 (91) Pulse Ox 98 93 98 98 O2 Delivery Room Air Room Air Room Air Room Air O2 Flow Rate 2.0 11/30/18 11/30/18 11/30/18 11/30/18 00:15 00:18 02:37 03:00 Temp 98.1 98.1 Pulse 86 Resp 18 18 18 17 B/P (MAP) 121/73 (89) Pulse Ox 98 98 98 96 O2 Delivery Room Air Room Air Room Air Room Air 11/30/18 11/30/18 11/30/18 11/30/18 03:09 04:27 05:12 06:03 Resp 18 18 18 18 Pulse Ox 98 98 98 98 O2 Delivery Room Air Room Air Room Air Room Air 11/30/18 11/30/18 06:04 07:27 Resp 18 18 Pulse Ox 98 98 O2 Delivery Room Air Room Air Intake and Output 11/29/18 11/29/18 11/30/18 14:59 22:59 06:59 Intake Total 600 ml 1700 ml 1150 ml Balance 600 ml 1700 ml 1150 ml LALITO IZAGUIRRE MD Nov 30, 2018 08:21
[2018-11-30] MEDS: ENOXAPARIN 40 MG/0.4 ML SYRINGE. SQ SCH (10:00)
[2018-11-30 11:00] VITALS: BP 108/70
--- NOTE | 2018-11-30 11:41 | PDOC ---
Infectious Disease Note Subjective Subjective pt says feels better Has some pain around new port but better - wants to go home no fevers or pain port cath site removal site no sob or cough no change in her bm ROS ROS o/w neg Vital Sign Vital Signs Vital Signs Date Time Temp Pulse Resp B/P (MAP) Pulse Ox O2 Delivery O2 Flow Rate FiO2 11/30/18 08:00 Room Air 11/30/18 07:27 18 98 11/30/18 07:00 98.5 83 145/79 (101) 98.5 11/30/18 00:14 2.0 Physical Exam PHYSICAL EXAM GENERAL: The patient is sitting upright in bed, alert, no apparent distress. HEENT: Pupils equally round, normal conjunctivae. Oropharynx pink and moist. NECK: Supple. LUNGS: Clear to auscultation. HEART: S1, S2. ABDOMEN: Soft, nontender with bowel sounds present. EXTREMITIES: No gross edema or cyanosis. SKIN: Warm to touch. No signs of rash. NEUROLOGIC: Alert and oriented x 3. LIJ PowerPort removal site nontender, without redness or swelling. new site is c lean trace erythema as expected Labs Micro Acinetobacter radioresistens 2+ AEROBIC RES 2 Final Mixed skin anna 1+ Performed at: DA - [facility] [address] [id number], [place], [place] [id number] Embroidery Specialist: SULEIMAN Goldsmith MD, Phone: [phone] ANTIMICROBIAL SUSCEPTIBILITY Final Comment S = Susceptible; I = Intermediate; R = Resistant P = Positive; N = Negative MICS are expressed in micrograms per mL Antibiotic RSLT#1 RSLT#2 RSLT#3 RSLT#4 Amikacin S<=4 Ampicillin/Sulbactam S<=4/2 Cefepime S =8 Cefotaxime S =8 Ceftazidime R> 16 Ceftriaxone S =4 Ciprofloxacin I =2 Gentamicin S =2 CONTINUED ON NEXT PAGE RUN DATE: 11/29/18 PAGE 2 RUN TIME: 1612 [facility] [address] [place] [address] Pipo Clay M[address]D., Court B[employer]iff SPEC: [id number] PATIENT: DENNIS MEAD [id number] (Continued) Procedure Result ANTIMICROBIAL SUSCEPTIBILITY Final (continued) Levofloxacin R> 4 Meropenem S<=1 Ticarcillin/Clavulanate S<=8 Tobramycin S<=1 Trimethoprim/Sulfa R> 2/38 Microbiology 11/22/18 Aerobic Culture - Preliminary, Resulted 11/22/18 Aerobic Culture Result 1 (NATE) - Preliminary, Resulted 11/22/18 Aerobic Culture Result 2 (NATE) - Preliminary, Resulted 11/22/18 Gram Stain - Final, Resulted 11/22/18 Gram Stain Result 1 (NATE) - Final, Resulted 11/22/18 Gram Stain Result 2 (NATE) - Final, Resulted 11/21/18 Blood Culture - Final, Complete NO GROWTH AFTER 5 DAYS Objective Assessment 1. Gram-positive cocci bacteremia (4 of 4 bottles) from 11/19. coag neg staph ,MSSE 2. Possible infected at PowerPort. Port removed 11/22,cath tip cults Acinetobacter 3. Fever.resolved 4. Leukocytosis.resolved 5. 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 6. Short bowel syndrome, on chronic TPN. 7. History of methicillin-resistant Staphylococcus aureus. 8. History of Clostridium difficile. Plan Plan of Care Can d/c home on Meropenem for 6 days Rx written and in chart. D/w Case management can F/u in ID office next week d/w nursing staff D/w / CLAUDIA Cloud MD Nov 30, 2018 11:41
[2018-11-30] MEDS ORDERED: MERO1VIA IV (12:51)
--- NOTE | 2018-11-30 12:53 | SNU/HH DC ---
DISCHARGE WITH HOME HEALTH DISCHARGE INFORMATION: Discharge Date: Nov 30, 2018 Final Diagnosis: Problems Medical Problems: (1) Fever Status: Acute (2) Infection of venous access port Status: Acute (3) Sepsis Status: Acute Condition on Discharge: Stable CODE STATUS: Code Status: Full HOME HEALTH: Face to Face: I certify this patient is under my care and that I, or a nurse practitioner or physician's rehabilitation assistant working with me, had a face to face encounter that meets the physician face to face encounter requirements with this patient on 11/30/2018. Medical Complications: Other (Bacteremia) Fdc For: Admin/Educate Injections, IV Infusion Therapy, Medication Management RN For Eval/Treatment: Yes Physical Therapy For: Evalulation/Treatment Occupational Therapy For: Evaluation/Treatment Home Health Aide For: Self-care Pt Meets Homebound Status: Extreme weakness w/ amb. POST DISCHARGE ORDERS: Activity Instructions for Disc: No restrictions Weight Bearing Status after Di: No restrictions Bathing Instructions: Shower-keep dressing dry DIET AFTER DISCHARGE: Regular CHECKS AFTER DISCHARGE: Checks after discharge: Check blood press - daily, Check your Temp as needed FOLLOW-UP: Additional Instructions: TPN 2 days weekly Merrem 1g Q8hrs for 6 days TREATMENT/EQUIPMENT ORDERS: Adaptive Equipment Issued: None Infusion Equipment, home use: PortaCath (TPN 2 days weekly, Merrem 1g Q8hrs for 6 days) CERTIFICATION STATEMENT: Certification Statement: Certification Statement: Based on the above finding, I certify that this patient is confined to the home and needs intermittent care home care, physical therapy and/or speech therapy, or continues to need occupational therapy.~ This patient is under my care, and I have initiated the establishment of the plan of care.~ This patient will be followed by myself or a community physician who will periodically review the plan of care. Home Meds Active Scripts Meropenem (MERREM) 1 Gm Vial, 1 GM IV Q8HRS for Bacteremia for 6 Days, #18 EACH Prov:LALITO IZAGUIRRE MD 11/30/18 Lactobacillus Rhamnosus Gg (CULTURELLE) 1 Each Cap.sprink, 1 CAP PO BID for pro biotic for 14 Days, #28 CAP Prov:ALBERT SAINI MD 11/26/18 Oxycodone Hcl (OXYCODONE HCL IMMED.RELEASE) 15 Mg Tablet, 15 MG PO QID for PAIN, #30 TAB Prov:ALBERT SAINI MD 11/26/18 Reported Medications Nicotine (NICODERM CQ 21mg) 1 Each Patch.td24, 1 PATCH TD PRN DAILY PRN for SMOKING CESSATION, PATCH 11/20/18 Fluoxetine Hcl (PROZAC) 10 Mg Capsule, 5 MG PO DAILY for depression, CAP 11/20/18 Famotidine (FAMOTIDINE) 40 Mg Tablet, 40 MG PO HS for GERD, TAB 11/20/18 Olanzapine (OLANZAPINE) 5 Mg Tablet, 5 MG PO DAILY for 11/20/18 Lamotrigine (LAMICTAL) 100 Mg Tablet, 1 TAB PO DAILY, #30 TAB 1 Refill 08/29/15 Loperamide Hcl (LOPERAMIDE) 2 Mg Tablet, 4 MG PO PRN QID PRN for DIARRHEA 04/04/15 Discontinued Reported Medications Fluoxetine Hcl (FLUOXETINE HCL) 20 Mg Tablet, 20 MG PO DAILY for 11/20/18 LALITO IZAGUIRRE MD Nov 30, 2018 12:53
[2018-11-30] MEDS ORDERED: HEPARIN PF 500 UNIT/5 ML DISP.SYRIN. IV ONE (16:15)
--- NOTE | 2018-11-30 16:33 | NUR ---
ZOLTAN following pt. ZOLTAN phoned and faxed IV abx/HH orders to [facility]. Pt states she does not care to know about her co-pay or deductible for IV abx. Erica to deliver medication to pt's home today. Pt denied need for a bedside teach. SW informed Erica they will need to go through pt's PCP to get resumption orders for TPN. Pt states her father s able to take her home today and agreeable with dc plan. Discussed with RN.
--- NOTE | 2018-11-30 17:50 | NUR ---
Pt left the unit by wheelchair at approx 1745 via private vehicle. Pt port was heparin locked upon discharge. Instructions regarding post discharge plans discussed.
== END 2018-11-30 17:52 | disposition home health service (06) | DRG 981 ==
LOC: ER 20:06 → 6 SOUTH 22:20 → 5 SOUTH 11-23 00:18
PROVIDERS: ADMIT Internal Medicine; ATTEND Internal Medicine
PROC: 0JPT0WZ Removal of Totally Implantable Vascular Access Device from Trunk Subcutaneous Tissue and Fascia, Open Approach (ICD-10-PCS; 2018-11-22)
PROC: 05PYX3Z Removal of Infusion Device from Upper Vein, External Approach (ICD-10-PCS; 2018-11-22)
PROC: 02H633Z Insertion of Infusion Device into Right Atrium, Percutaneous Approach (ICD-10-PCS; 2018-11-29)
PROC: B2141ZZ Fluoroscopy of Right Heart using Low Osmolar Contrast (ICD-10-PCS; 2018-11-29)
PROC: B244YZZ Ultrasonography of Right Heart using Other Contrast (ICD-10-PCS; 2018-11-29)
PROC: 0JH60WZ Insertion of Totally Implantable Vascular Access Device into Chest Subcutaneous Tissue and Fascia, Open Approach (ICD-10-PCS; principal; 2018-11-29 10:30)
DX: T80.219A Unspecified infection due to central venous catheter, initial encounter (principal); A41.1 Sepsis due to other specified staphylococcus; E44.1 Mild protein-calorie malnutrition; K91.2 Postsurgical malabsorption, not elsewhere classified; F31.9 Bipolar disorder, unspecified; F17.210 Nicotine dependence, cigarettes, uncomplicated; F41.9 Anxiety disorder, unspecified; B96.89 Other specified bacterial agents as the cause of diseases classified elsewhere; Y84.8 Other medical procedures as the cause of abnormal reaction of the patient, or of later complication, without mention of misadventure at the time of the procedure; K21.9 Gastro-esophageal reflux disease without esophagitis; G89.29 Other chronic pain; Z90.710 Acquired absence of both cervix and uterus; Z90.49 Acquired absence of other specified parts of digestive tract; Z98.891 History of uterine scar from previous surgery; Z88.1 Allergy status to other antibiotic agents; Z88.5 Allergy status to narcotic agent; Z88.8 Allergy status to other drugs, medicaments and biological substances; Z91.09 Other allergy status, other than to drugs and biological substances; Z82.5 Family history of asthma and other chronic lower respiratory diseases; Z85.42 Personal history of malignant neoplasm of other parts of uterus; Z92.3 Personal history of irradiation; Z79.899 Other long term (current) drug therapy; Z92.21 Personal history of antineoplastic chemotherapy; Z86.14 Personal history of Methicillin resistant Staphylococcus aureus infection; Z68.20 Body mass index [BMI] 20.0-20.9, adult
CPT/HCPCS: 36415; 36561; 36590; 76937; 77001; 80053; 81001; 83605; 83735; 84100; 85025; 85610; 85730; 87040; 87070; 87077; 87186; 87205; 96365; C1751; C1892; J0690; J0780; J0878; J1170; J1650; J2185; J2248; J2250; J2405; J2543; J2704; J3010; J3475; J3490; J7030; J7120; 99285-25; G0378

== ENCOUNTER 2020-05-31 17:32 | Emergency (ER) | payer MEDICARE, OTHER ==
[~2020-05-31] VITALS: Ht 157.5 cm; Wt 110.0 kg
[~2020-05-31 17:32] MED LIST changes: +FAMO40TA4 PO; +FLUO10CA13 PO; +FLUO20TA11 PO; +LACT1CAP19 PO; +MERO1VIA22 IV; +NICO1PAT21 TD; +OLAN5TAB9 PO; +OXYC15TA3 PO
[2020-05-31 18:26] VITALS: BP 124/92
[2020-05-31] MEDS ORDERED: KETOROLAC 60 MG/2 ML VIAL. IM ONE (19:00)
--- NOTE | 2020-05-31 19:12 | PHYS DOC ---
Past Medical History Past Medical History: Other Additional Past Medical Histor: short bowel syndrome, malabsorption, chronic pain d/t radiation Past Surgical History: No Surgical History Additional Past Surgical Histo: bowel resections X 3, hernia repair, LEFT SC CENTRAL LINE Smoking Status: Current Every Day Smoker Alcohol Use: None Drug Use: None General Adult EDM: Chief Complaint: RIB PAIN HPI: HPI: Patient is a 34 year old female with history of uterine cancer status post hysterectomy, radiation treatment, radiation cystitis, presents for left rib injury. She reports that around 2 PM today she tripped by her cat, and fell on her door handle with her left lower rib. Patient's pain has been worsening since 2 PM and is now at 10 out of 10 in severity. Patient take oxycodone daily for pain related to radiation therapy, and she reports that it does not alleviate her pain at all. In addition, breathing, movement, sneezing, giggling, worsens the pain. Patient's pain was localized near the left ribs 7 and 8 around mid axillary line. Patient denies any associated symptoms. Denies any fever or chills, chest pain, respiration issues, abdominal pain, change in bowel movement, change in urination. Patient is the main historian. Review of Systems: Review of Systems: Review of systems: Constitutional symptoms- No fever, no chills. Eyes- No Discharge, No Visual Loss Respiratory symptoms- No shortness of breath, No wheezing, No Dyspnea on Exertion Cardiovascular Systems; No chest pain, No Palpitations, No syncope Gastrointestinal symptoms: NO abdominal pain, no nausea, no vomiting or diarrhea. Genitourinary symptoms: No dysuria. Musculoskeletal symptoms: Ports left-sided rib pain. NEUROLOGICAL Symptoms: No headache, no generalized weakness; No focal Weakness Heart Score: C/O Chest Pain: No Risk Factors: Risk Factors: DM, Current or recent (<one month) smoker, HTN, HLP, family history of CAD, obesity. Risk Scores: Score 0 - 3: 2.5% MACE over next 6 weeks - Discharge Home Score 4 - 6: 20.3% MACE over next 6 weeks - Admit for Clinical Observation Score 7 - 10: 72.7% MACE over next 6 weeks - Early Invasive Strategies Current Medications: Current Medications Medications (Trade) Dose Ordered Sig/Caroline Start Time Stop Time Status Last Admin Dose Admin Ketorolac Tromethamine (Toradol Im) 60 mg 1X ONCE 05/31/20 19:00 05/31/20 19:01 DC Allergies: Allergies: Allergies Coded Allergies Type Severity Reaction Last Updated Verified adhesive Allergy Intermediate Rash 11/29/18 Yes amphetamine Adverse Reaction Intermediate hallucinations 11/29/18 Yes dextroamphetamine Adverse Reaction Intermediate hallucinations 11/29/18 Yes lorazepam Adverse Reaction Intermediate hallucinations 11/29/18 Yes meperidine Adverse Reaction Intermediate "violent rages" 11/29/18 Yes vancomycin Adverse Reaction Intermediate "raynauds" 11/29/18 Yes Physical Exam: PE: General: alert, no acute distress. Skin: warm, dry and intact. Head:: Normocephalic, atraumatic. Neck: Trachea midline. Eyes: EOMI, Normal conjunctiva, No drainage CARDIOVASCULAR: Regular rate and rhythm RESPIRATORY: No respiratory distress Back: Full range of motion. MUSCULOSKELETAL: Regions around patient's left rib 7 and 8 was warm, and tender upon palpation. A few spots of redness present in the area but no ecchymosis was visualized GASTROINTESTINAL: Abdomen soft without rebound or guarding. NEUROLOGICAL: Alert and noted to person, place and time. No neurological deficits observed Psychiatric: Cooperative. Normal judgment Current Patient Data: Vital Signs: Vital Signs Date Time Temp Pulse Resp B/P (MAP) Pulse Ox O2 Delivery O2 Flow Rate FiO2 05/31/20 18:26 98.2 100 20 124/92 (103) 97 Room Air 98.2 EKG: EKG: [] Radiology/Procedures: Radiology/Procedures: [] Course & Med Decision Making: Course & Med Decision Making Pertinent Labs and Imaging studies reviewed. (See chart for details) [] Dragon Disclaimer: Dragon Disclaimer: This electronic medical record was generated, in whole or in part, using a voice recognition dictation system. Departure Departure Impression: Primary Impression: Rib pain on left side Disposition: 01 DC HOME SELF CARE/HOMELESS Condition: STABLE Referrals: MILLIE VILLAREAL MD (PCP) Patient Instructions: Rib Contusion Scripts Oxycodone HCl/Acetaminophen (Percocet 5-325 mg Tablet) 1 Each Tablet 1 TAB PO PRN TID PRN for PAIN MDD 3 Tablet(s) for 5 Days, #15 TAB 0 Refills Prov: AGUSTINA DUBOSE I DO 05/31/20 AGUSTINA DUBOSE I DO May 31, 2020 19:12
[2020-05-31] MEDS ORDERED: OXYC-325 PO (19:58)
--- NOTE | 2020-05-31 20:07 | RAD ---
Exam:Left ribs with PA chest Date: 05/31/2020 6:49 PM Comparison: No prior Indication: Reason: Injury to LLQ, rib pain / Spl. Instructions: / History: Findings/ Impression: The heart is not enlarged. Mediastinal and hilar contours are normal. No focal parenchymal airspace o pacity. No pleural effusion or pneumothorax. Calcified granuloma left lung base. Left port tip termin ates within the distal SVC. AP, Oblique and Spot images of the left ribs are negative for acute displaced rib fracture. Negative focal pleural elevation. Symmetrical intercostal spacing. It is of note that an acute non-displaced rib fracture can be in-apparent on initial post-trauma imag ing. Electronically signed by: Satish Conde MD (05/31/2020 8:04 PM) [facility]
== END 2020-05-31 20:05 | disposition home or self-care (01) ==
LOC: ER 17:32
DX: R07.81 Pleurodynia (principal); G89.29 Other chronic pain; F17.200 Nicotine dependence, unspecified, uncomplicated; Z98.890 Other specified postprocedural states; Z88.1 Allergy status to other antibiotic agents; Z88.8 Allergy status to other drugs, medicaments and biological substances
CPT/HCPCS: 71101; 96372; 99283; J1885

== ENCOUNTER 2020-08-13 06:16 | Emergency (ER) | payer MEDICARE, MEDICAID ==
[~2020-08-13] VITALS: Ht 157.5 cm; Wt 51.4 kg
[~2020-08-13 06:16] MED LIST changes: +DULO20CA PO; +OXYC-325 PO
[2020-08-13] MEDS ORDERED: IV NORMAL SALINE 1000ML BAG 1,000 ML IV SCH (06:45)
[2020-08-13] MEDS ORDERED: MULTIVIT INFUSN,ADULT 4,VIT K 10 ML, THIAMINE INJ 100 MG, FOLIC ACID INJ 1 MG in IV NOR... IV ONE (06:45)
--- NOTE | 2020-08-13 06:45 | PHYS DOC ---
Past Medical History Past Medical History: Alcoholism, Other Additional Past Medical Histor: short bowel syndrome, malabsorption, chronic pain d/t radiation Past Surgical History: Appendectomy, Cholecystectomy, Hysterectomy Additional Past Surgical Histo: bowel resections X 3, hernia repair, LEFT PORT A CATH Smoking Status: Current Every Day Smoker Alcohol Use: Heavy Drug Use: None General Adult EDM: Chief Complaint: ALCOHOL INTOXICATION HPI: HPI: 55-year-old female past medical history significant for stage III uterine cancer status post ALLEN-BSO (remission since 2008), short gut syndrome, bipolar disorder, anxiety and alcoholism, presents to the ED with complaints of upper extremity tremors and nausea stating that she last drink alcohol 6 hours ago and is attempting to detox. Has history of polysubstance abuse and relapsed a few years ago. Usually drinks 18-20 shots of vodka/day. Denies any SI/HI. No trauma or falls. Review of Systems: Review of Systems: Constitutional: Denies fever or chills. [] Eyes: Denies change in visual acuity. [] HENT: Denies nasal congestion or sore throat. [] Respiratory: Denies cough or shortness of breath. [] Cardiovascular: Denies chest pain or edema. [] GI: Denies abdominal pain, vomiting, bloody stools or diarrhea. [] : Denies dysuria or vaginal bleeding Musculoskeletal: Denies back pain or joint pain. [] Integument: Denies rash or diaphoresis Neurologic: Denies headache, focal weakness or sensory changes. [] Endocrine: Denies polyuria or polydipsia. [] Lymphatic: Denies swollen glands. [] Psychiatric: Denies depression or anxiety. [] Heart Score: C/O Chest Pain: No Risk Factors: Risk Factors: DM, Current or recent (<one month) smoker, HTN, HLP, family history of CAD, obesity. Risk Scores: Score 0 - 3: 2.5% MACE over next 6 weeks - Discharge Home Score 4 - 6: 20.3% MACE over next 6 weeks - Admit for Clinical Observation Score 7 - 10: 72.7% MACE over next 6 weeks - Early Invasive Strategies Allergies: Allergies: Allergies Coded Allergies Type Severity Reaction Last Updated Verified cephalexin Allergy Severe 07/02/20 Yes sulfamethoxazole Allergy Severe 07/02/20 Yes trimethoprim Allergy Severe 07/02/20 Yes adhesive Allergy Intermediate Rash 11/29/18 Yes amphetamine Adverse Reaction Intermediate hallucinations 11/29/18 Yes dextroamphetamine Adverse Reaction Intermediate hallucinations 11/29/18 Yes meperidine Adverse Reaction Intermediate "violent rages" 11/29/18 Yes vancomycin Adverse Reaction Intermediate "raynauds" 11/29/18 Yes Physical Exam: PE: Constitutional: Thin, no acute distress, afebrile HENT: Normocephalic, atraumatic, dry mucous membranes, no tongue fasciculations Eyes: EOMI, conjunctiva normal, no discharge. Neck: Normal range of motion, supple, Cardiovascular: S1/2 present, tachycardic on arrival Lungs & Thorax: Speaking in full sentences, bilateral equal chest rise, no tachypnea or increased work of breathing Abdomen: soft, no tenderness, large vertical scar, no rigidity or peritonitis Skin: Warm, dry, no erythema, no rash. [] Back: No tenderness, no CVA tenderness. [] Extremities: No tenderness, no cyanosis, no lower extremity edema, UE tremors Neurologic: Alert and oriented X 3, normal motor function, normal sensory function, no focal deficits noted. [] Psychologic: Affect normal, judgement normal, mood normal. [] Current Patient Data: Vital Signs: Vital Signs Date Time Temp Pulse Resp B/P (MAP) Pulse Ox O2 Delivery O2 Flow Rate FiO2 08/13/20 06:22 97.6 115 18 172/105 (127) 96 Room Air 97.6 EKG: EKG: Sinus rhythm at 90 bpm, no axis deviation, QTC 490, questionable T wave inversion V2 and V3, no ST elevations or ST depressions, no active chest pain Radiology/Procedures: Radiology/Procedures: [] Course & Med Decision Making: Course & Med Decision Making Pertinent Labs and Imaging studies reviewed. (See chart for details) Concern for hypokalemia in the setting of mild alcohol intoxication, no active signs of withdrawal. Ativan given on arrival, tachycardia resolved. Patient with no tremors at rest. Has no hallucinations or tongue fasciculations. Patient afebrile with no leukocytosis. No active nausea or vomiting. I spoke with [facility] via pat team-no formal consult placed. Patient is well-known and has an outpatient program established with [facility]. Pt was discharged from the hospital 1 week ago. [facility] unable to place patient for any inpatient facility given her complicated medical history/tpn/port. Patient does have inpatient program scheduled on the . In the meantime will prescribe patient on Librium taper, Zofran and potassium replacement. Will discharge home with strict ED return precautions were given for syncope, chest pain, difficulties breathing, hallucinations, SI or HI, tremors intractable nausea or vomiting. Encouraged urgent outpatient follow-up with PMD (within 72 hours for potassium check) and her psychiatrist/RSI as needed. Life-threatening processes were considered but are low suspicion at this time, given history, physical exam and ED workup. Pt was educated on all prescription medications and adverse effects. All patient's questions were answered and pt was stable at time of discharge. Life/limb-threatening differential includes but is not limited to, end organ damage/sepsis, trauma/abuse/neglect, neurologic deficit, alcohol/drug ingestion, toxidrome, suicidal/homicidal ideations plans or attempts, psychosis or mental illness resulting in self neglect and inability to care for self. I spoken with the patient and her caregivers. I explained the patient's condition, diagnoses and treatment plan based on the information available to me at this time. I have answered the patient and her caregiver's questions and addressed any concerns. The patient and her caregivers have a good understanding of patient's diagnosis, condition and treatment plan as can be expected at this point. Vital signs have been stable. Patient's condition is stable and appropriate for discharge from the emergency department. Patient will pursue further outpatient evaluation with primary care physician or other designated or consulting physician as outlined in the discharge instructions. The patient and/or caregivers are agreeable to this plan of care and follow-up instructions have been explained in detail. The patient and/or caregivers have received these instructions in written form and have expressed an understanding of the discharge instructions. The patient and/or caregivers are aware that any significant change of condition or worsening of symptoms should prompt immediate return to this or the closest emergency department or call to 911. Naif Disclaimer: Naif Disclaimer: This electronic medical record was generated, in whole or in part, using a voice recognition dictation system. Departure Departure Impression: Primary Impression: Alcohol intoxication Additional Impression: Hypokalemia Disposition: HOME / SELF CARE / HOMELESS Condition: STABLE Referrals: MILLIE VILLAREAL MD (PCP) in 24-48 hours for re-evaluation Patient Instructions: Alcohol Intoxication, Alcohol Withdrawal, Hypokalemia Additional Instructions: [place] for support services/mental health counseling 06/10 crisis stabilization services [address] [place] [address] EMERGENCY DEPARTMENT GENERAL DISCHARGE INSTRUCTIONS Thank you for coming to [facility] Emergency Department (ED) today and trusting us with you care. We trust that you had a positive experience in our Emergency Department. If you wish to speak to the department management, you may call the Director at [phone]. YOUR FOLLOW UP INSTRUCTIONS ARE FOLLOWS: 1. Do you have a private Doctor? If you do not have a private doctor, please ask for a resource list of physicians or clinics that may be able to assist you with follow up care. 2. The Emergency Physicain has interpreted your x-rays. The X-Ray specialist will also review them. If there is a change in the findings, you will be notified in 48 hours when at all possible. 3. A lab test or culture has been done, your results will be reviewed and you will be notified if you need a change in treatment. ADDITIONAL INSTRUCTIONS AND INFORMATION: 1. Your care today has been supervised by a physician who is specially trained in emergency care. Many problems require more than one evaluation for a complete diagnosis and treatment. We recommend that you schedule your follow up appointment as recommended to ensure complete treatment of you illness or injury. If you are unable to obtain follow up care and continue to have a problem, or if your condition worsens, we recommend that you return to the ED. 2. We are not able to safely determine your condition over the phone nor are we able to give sound medical advice over the phone. For these safety reasons, if you call for medical advice we will ask you to come to the ED for further evaluation. 3. If you have any questions regarding these discharge instructions please call the ED at [phone]. SAFETY INFORMATION: In the interest of safety, wellness, and injury prevention; we encourage you to wear your sealbelt, if you smoke; quite smoking, and we encourage family to use a protective helmet for bicycling and other sporting events that present an increased risk for head injury. IF YOUR SYMPTOMS WORSEN OR NEW SYMPTOMS DEVELOP, OR YOU HAVE CONCERNS ABOUT YOUR CONDITION; OR IF YOUR CONDITION WORSENS WHILE YOU ARE WAITING FOR YOUR FOLLOW UP APPOINTMENT; EITHER CONTACT YOUR PRIMARY CARE DOCTOR, THE PHYSICIAN WHOSE NAME AND NUMBER YOU WERE GIVEN, OR RETURN TO THE ED IMMEDIATELY. Scripts Ondansetron (ONDANSETRON ODT) 4 Mg Tab.rapdis 1 TAB PO PRN Q6-8HRS, #20 TAB Prov: FADI SCHUMACHER DO 08/13/20 Chlordiazepoxide Hcl (CHLORDIAZEPOXIDE HCL) 25 Mg Capsule 25 MG PO PRN PRN for WITHDRAWAL IRRITABILITY MDD 300 mg/daily, #24 CAP take 2 tablets by mouth, every 8 hours x 2 days, take 1 tablet by mouth, every 8 hours x 2 days, take 1 tablet by mouth, every 8 hours prn Prov: FADI SCHUMACHER DO 08/13/20 Potassium Chloride (POTASSIUM CHLORIDE ) 20 Meq Tablet.er 20 MEQ PO BID for SUPPLEMENT for 1 Day, #2 TAB.SR Prov: FADI SCHUMACHER DO 08/13/20 FADI SCHUMACHER DO August 13, 2020 06:45
--- NOTE | 2020-08-13 06:53 | EKG ---
[facility] [address] [place] [address] Test Date: 2020-08-13 Test Time: 06:42:08 Pat Name: DENNIS MEAD Department: Room: Gender: F Guide Winder: : 1985 Requested By: FADI SCHUMACHER Order Number: [id number] Reading MD: Jef aMldonado Measurements Intervals [place] Rate: 98 P: 1 FL: 134 QRS: 72 QRSD: 104 T: 40 QT: 382 QTc: 490 Interpretive Statements SINUS RHYTHM PROLONGED QT Electronically Signed On 08-14-2020 15:05:14 CDT by Jef Maldonado
--- NOTE | 2020-08-13 07:19 | RAD ---
XR CHEST 1V INDICATION: nausea COMPARISON STUDY: 07/05/2020. FINDINGS: Left Port-A-Cath. Lungs: Normal lung volume. No pulmonary mass or consolidation. The tracheobronchial tree and hilar st ructures are normal. Pleura: No pleural effusion or pneumothorax. Heart and Mediastinum: The cardiomediastinal silhouette is normal. The great vessels of the thorax ar e normal. Bones and Soft Tissues: The bones and soft tissues are within normal limits. IMPRESSION: No acute cardiopulmonary process. Electronically signed by: Yonatan Bautista MD (08/13/2020 7:17 AM) [id number]
[2020-08-13 08:11] LABS: BASO % 0 % (0-3); EOS # 0.1 x10^3/uL (0.0-0.7); EOS % 1 % (0-3); HEMOGLOBIN 13.2 g/dL (12.0-15.5); LYMPH # 3.3 x10^3/uL (1.0-4.8); LYMPH % 37 % (24-48); MEAN CORPUSCULAR HEMOGLOBIN 30 pg (25-35); MEAN CORPUSCULAR HGB CONC 34 g/dL (31-37); MEAN CORPUSCULAR VOLUME 87 fL (79-100); MONO # 0.8 x10^3/uL (0.0-1.1); MONO % 9 % (0-9); NEUT # 4.7 x10^3/uL (1.8-7.7); NEUT % 53 % (31-73); PLATELET COUNT 272 x10^3/uL (140-400); RED BLOOD COUNT 4.47 x10^6/uL (3.50-5.40); RED CELL DISTRIBUTION WIDTH 15.9 % (11.5-14.5); WHITE BLOOD COUNT 8.9 x10^3/uL (4.0-11.0)
[2020-08-13 08:17] LABS: PREG TEST PT QUAL NEGATIVE (NEG)
[2020-08-13 08:22] LABS: ALBUMIN 3.6 g/dL (3.4-5.0); CALCIUM 7.9 mg/dL (8.5-10.1); CREATININE 0.6 mg/dL (0.6-1.0); DIRECT BILIRUBIN 0.1 mg/dL (0.0-0.2); GFR 113.8; TOTAL BILIRUBIN 0.3 mg/dL (0.2-1.0)
[2020-08-13 08:25] LABS: POTASSIUM 2.8 mmol/L (3.5-5.1)
[2020-08-13] MEDS ORDERED: POTASSIUM CHLORIDE 20 MEQ TABLET.ER. PO ONE (08:30)
[2020-08-13] MEDS ORDERED: POTA20TA4 PO (09:19)
[2020-08-13] MEDS ORDERED: CHLO25CA9 PO ×2 (09:19→09:23)
[2020-08-13] MEDS ORDERED: ONDA4TAB12 PO (09:23)
[2020-08-13 09:31] VITALS: BP 155/94
[2020-08-13] MEDS ORDERED: HEPARIN PF 500 UNIT/5 ML DISP.SYRIN. IVP ONE (09:43)
== END 2020-08-13 09:49 | disposition home or self-care (01) ==
LOC: ER 06:16
DX: F10.229 Alcohol dependence with intoxication, unspecified (principal); E87.6 Hypokalemia; F17.200 Nicotine dependence, unspecified, uncomplicated; G89.29 Other chronic pain; F31.9 Bipolar disorder, unspecified; F41.9 Anxiety disorder, unspecified; Z88.1 Allergy status to other antibiotic agents; Z88.2 Allergy status to sulfonamides; Z88.8 Allergy status to other drugs, medicaments and biological substances; Y90.2 Blood alcohol level of 40-59 mg/100 ml
CPT/HCPCS: 36415; 71045; 80048; 80076; 84703; 85025; 93005; 96365; 96375; 99285; G0480; J2060; J3411; J3490; J7030

== ENCOUNTER 2020-08-14 17:31 | Emergency (ER) | payer MEDICARE, MEDICAID ==
[~2020-08-14] VITALS: Ht 157.5 cm; Wt 50.0 kg
[~2020-08-14 17:31] MED LIST changes: +CHLO25CA9 PO; +ONDA4TAB12 PO; +POTA20TA4 PO
[2020-08-14 18:12] VITALS: BP 159/103
[2020-08-14] MEDS ORDERED: HYDROcodone/APAP 5/325MG 1 TAB TABLET PO ONE (18:15)
--- NOTE | 2020-08-14 18:19 | ED.ADGEN ---
Past Medical History Past Medical History: Alcoholism, Other Additional Past Medical Histor: short bowel syndrome, malabsorption, chronic pain d/t radiation Past Surgical History: Appendectomy, Cholecystectomy, Hysterectomy Additional Past Surgical Histo: bowel resections X 3, hernia repair, LEFT PORT A CATH Smoking Status: Current Every Day Smoker Alcohol Use: Heavy Drug Use: None General Adult EDM: Chief Complaint: WRIST PAIN HPI: HPI: Patient is a 35 year old female coming in for right wrist pain. States that in the type caster hours, about 6 hours prior to arrival she tripped and fell and caught herself with her right hand. Patient has small contusion to her knee but no other injuries. Patient is coming because the pain is getting worse. Complains of pain over the right distal radius. Review of Systems: Review of Systems: All other systems within normal limits except for as noted in the HPI Current Medications: Current Medications Medications (Trade) Dose Ordered Sig/Caroline Start Time Stop Time Status Last Admin Dose Admin Acetaminophen/ Hydrocodone Bitart (Lortab 5/325) 1 tab 1X ONCE 08/14/20 18:15 08/14/20 18:18 DC 08/14/20 18:28 1 TAB Allergies: Allergies: Allergies Coded Allergies Type Severity Reaction Last Updated Verified cephalexin Allergy Severe 07/02/20 Yes sulfamethoxazole Allergy Severe 07/02/20 Yes trimethoprim Allergy Severe 07/02/20 Yes adhesive Allergy Intermediate Rash 11/29/18 Yes amphetamine Adverse Reaction Intermediate hallucinations 11/29/18 Yes dextroamphetamine Adverse Reaction Intermediate hallucinations 11/29/18 Yes meperidine Adverse Reaction Intermediate "violent rages" 11/29/18 Yes vancomycin Adverse Reaction Intermediate "raynauds" 11/29/18 Yes Physical Exam: PE: Constitutional: Well developed, well nourished, no acute distress, non-toxic appearance. [] HENT: Normocephalic, atraumatic, bilateral external ears normal, nose normal. [] Eyes: PERRLA, conjunctiva normal, no discharge. [] Neck: No rigidity, supple, no stridor. [] Cardiovascular: Regular rate and rhythm, brisk cap refill [] Lungs & Thorax: Non labored symmetric respirations, no tachypnea or respiratory distress [] Abdomen: Soft, nondistended. Skin: Warm, dry, no erythema, no rash. [] Back: Unremarkable Extremities: No deformities, range of motion grossly intact, no lower extremity edema. Right wrist pain and swelling, no point snuffbox tenderness. Neurovascularly intact distal injury [] Neurologic: Alert and oriented X 3, no focal deficits noted. [] Psychologic: Affect normal, judgement normal, mood normal. [] Current Patient Data: Vital Signs: Vital Signs Date Time Temp Pulse Resp B/P (MAP) Pulse Ox O2 Delivery O2 Flow Rate FiO2 08/14/20 18:12 98.9 104 20 159/103 (121) 97 Room Air 98.9 EKG: EKG: [] Heart Score: C/O Chest Pain: No Risk Factors: Risk Factors: DM, Current or recent (<one month) smoker, HTN, HLP, family history of CAD, obesity. Risk Scores: Score 0 - 3: 2.5% MACE over next 6 weeks - Discharge Home Score 4 - 6: 20.3% MACE over next 6 weeks - Admit for Clinical Observation Score 7 - 10: 72.7% MACE over next 6 weeks - Early Invasive Strategies Radiology/Procedures: Radiology/Procedures: [facility] [address] [place] [address] IMAGING REPORT Signed PATIENT: DENNIS MEAD MACCOUNT: [id number] : 1985 LOCATION: ER AGE: 35 SEX: F EXAM STATUS: REG ER ORD. PHYSICIAN: MELY ARAGON MD REASON: fall, pain, swelling PROCEDURE: WRIST 3V RIGHT XR RT WRIST 3VIEWS DATE: 08/14/2020 6:45 PM INDICATION: fall, pain, swelling COMPARISON: None. FINDINGS: Bones: There is no evidence of acute fracture or dislocation. Joints: The joint spaces are normal. Miscellaneous: None. IMPRESSION: No evidence of acute fracture. Electronically signed by: Nina Bautista MD (08/14/2020 6:53 PM) [facility] DICTATED and SIGNED BY: NINA BAUTISTA MD DATE: 08/14/20 [id number] [] Course & Med Decision Making: Course & Med Decision Making Pertinent Labs and Imaging studies reviewed. (See chart for details) [] Dragon Disclaimer: Dragon Disclaimer: This electronic medical record was generated, in whole or in part, using a voice recognition dictation system. Departure Departure Impression: Primary Impression: Sprain of right wrist Disposition: HOME / SELF CARE / HOMELESS Condition: STABLE Referrals: MILLIE VILLAREAL MD (PCP) Patient Instructions: Elastic Bandage and RICE Additional Instructions: Ice, ibuprofen, and acetaminophen as needed for pain MELY ARAGON MD Aug 14, 2020 18:19
--- NOTE | 2020-08-14 18:56 | RAD ---
XR RT WRIST 3VIEWS DATE: 08/14/2020 6:45 PM INDICATION: fall, pain, swelling COMPARISON: None. FINDINGS: Bones: There is no evidence of acute fracture or dislocation. Joints: The joint spaces are normal. Miscellaneous: None. IMPRESSION: No evidence of acute fracture. Electronically signed by: Yonatan Bautista MD (08/14/2020 6:53 PM) [facility]
== END 2020-08-14 19:35 | disposition home or self-care (01) ==
LOC: ER 17:31
DX: S63.501A Unspecified sprain of right wrist, initial encounter (principal); G89.29 Other chronic pain; F17.200 Nicotine dependence, unspecified, uncomplicated; F10.20 Alcohol dependence, uncomplicated; Y90.9 Presence of alcohol in blood, level not specified; W01.0XXA Fall on same level from slipping, tripping and stumbling without subsequent striking against object, initial encounter; Y93.89 Activity, other specified; Y92.89 Other specified places as the place of occurrence of the external cause; Y99.8 Other external cause status
CPT/HCPCS: 73110; 99283